=== PATIENT | female | born 1945 | race Caucasian/White ===

== ENCOUNTER 2018-07-27 10:00 | Day surgery (SDC) | payer MEDICARE ==
[2018-07-27 10:29] VITALS: BMI 26.4
[2018-07-27] MEDS ORDERED: Midazolam 2 MG/2 ML VIAL ONE (11:19)
[2018-07-27] MEDS ORDERED: Propofol 10 mg/ml Inj (20 ML) ONE (11:20)
[2018-07-27] MEDS ORDERED: Lactated Ringer's 500 ML IV ONE (11:30)
[2018-07-27 12:09] VITALS: RESP 16
[2018-07-27 12:26] VITALS: BP 100/62; PULSE 88; TEMP 97; O2SAT 98
== END 2018-07-27 13:00 | disposition home or self-care (01) ==
LOC: H.ENDO 10:00
PROVIDERS: ATTEND Internal Medicine Gastroenterology
DX: Z86.010 Personal history of colon polyps (principal); D49.0 Neoplasm of unspecified behavior of digestive system; K64.8 Other hemorrhoids; K57.30 Diverticulosis of large intestine without perforation or abscess without bleeding; K29.50 Unspecified chronic gastritis without bleeding; K31.89 Other diseases of stomach and duodenum
CPT/HCPCS: 43239; 45380; 45381; 88305; J2001; J2250; J2704; J3010; J7120

== ENCOUNTER 2018-10-06 07:53 | Inpatient (IN) | payer MEDICARE, OTHER ==
[2018-09-30 10:15] VITALS: BMI 26.7
[2018-10-06] MEDS ORDERED: Lactated Ringer's 1,000 ML IV ONE ×4 (08:30→15:00)
[2018-10-06] MEDS ORDERED: metroNIDAZOLE 500mg/100ml NS 100 ML IVPB ONE (09:53)
[2018-10-06] MEDS ORDERED: Propofol 10 mg/ml Inj (20 ML) ONE (09:58)
[2018-10-06] MEDS ORDERED: Rocuronium 10 mg/ml (5 ml) ONE (09:58)
[2018-10-06] MEDS ORDERED: Midazolam 2 MG/2 ML VIAL ONE (09:58)
[2018-10-06] MEDS ORDERED: Lidocaine 4% (Laryng-O-Jet) Kit MM ONE (09:58)
[2018-10-06] MEDS ORDERED: Succinylcholine Chloride 20 mg/ml Syr (5 ml) IV ONE (09:58)
[2018-10-06] MEDS ORDERED: Phenylephrine 10 mg/ml Inj ONE (10:05)
[2018-10-06] MEDS ORDERED: metroNIDAZOLE 500mg/100ml NS IVPB ONE (10:15)
[2018-10-06] MEDS ORDERED: Ropivacaine 0.5% 30ML IV ONE (12:41)
[2018-10-06] MEDS ORDERED: Neostigmine 1:1000 (1 mg/ml) Inj ONE (12:52)
[2018-10-06] MEDS ORDERED: Lactated Ringer's 1,000 ML IV SCH (13:30)
--- NOTE | 2018-10-06 13:33 | PCM.SURG1 ---
<Mar Rehman - Last Filed: 10/06/18 13:30> Surgeon's Initial Post Op Note - Surgeon's Notes Surgeon: Dr. Haque Dance Critic: Dr. Mai, Dr. Rehman, Dr. Matthew Type of Anesthesia: General Endo, Block Regional Pre-Operative Diagnosis: colon cancer Operative Findings: dense intra-abdominal adhesions, palpable cecal colon mass with visible tattoo Post-Operative Diagnosis: colon cancer Operation Performed: laparoscopic lysis of adhesions and mobilization of right colon converted to open right hemicolectomy with ileocolic anastomosis Specimen/Specimens Removed: right colon Estimated Blood Loss: EBL {In ML}: 50 Blood Products Given: N/A Drains Used: No Drains Post-Op Condition: Good Date of Surgery/Procedure: 10/06/18 Time of Surgery/Procedure: 13:33 <James Haque - Last Filed: 10/06/18 13:35> Surgeon's Initial Post Op Note - Surgeon's Notes Operation Performed: partial omentectomy
--- NOTE | 2018-10-06 13:34 | PCM.ANESB5 ---
Transverse Abdominis Block - Transverse Abdominis Plane Date of Procedure: 10/06/18 Anesthesiologist: Shala Pre-Procedure Diagnosis: Colon Cancer Post-Procedure Diagnosis: Colon Cancer Procedure Performed: Transverse Abdominis Plane Nerve Block Left, Transverse Abdominis Plane Nerve Block Right - Procedure Transverse Abdominis Plane Nerve Block: The procedure was explained to the patient that it is for post-operative pain management and would be performed after surgery. Consent was obtained prior to surgery after a thorough discussion with the patient regarding the benefits and possible complications of transverse abdominis plane block. After the surgery had concluded and before the patient emerged from general anesthesia, time-out was held with the circulating nurse to re-confirm the appropriate block. With the patient in supine position, the ultrasound probe was placed transverse to the abdominal wall at the mid-axillary line above the iliac crest of the appro priate side. The skin, subcutaneous tissue, fat, external oblique muscle, internal oblique muscle, and the transverse abdominis muscle were identified. The general area of the block site was then prepped with Betadine three times. At this point, a # 21-gauge Stimuplex 4-inch needle was inserted posterior to and in plane with the ultrasound probe and directed anteriorly. Needle was advanced under direct ultrasound visualization until it reached the plane between the internal oblique and transverse abdominis muscles. After appropriate placement, 2mL of local anesthetic solution was injected. When the transverse abdominis plane was observed expanding in an ellipsoid way, the rest of the solution was slowly injected. A total of ___20___ mL of __0.25___ % ____ropivacaine was used for this block. The needle was then removed and sterile dressing was applied. Similarly, the same procedure was performed on the other side using the same medications. The patient had stable vital signs throughout and had no untoward complications after emergence from general anesthesia in the recovery room.
[2018-10-06] MEDS: HYDROmorphone 0.5 mg/0.5 ml ISec IVP PRN ×3 (13:55→14:25)
[2018-10-06] MEDS: metroNIDAZOLE 500mg/100ml NS 100 ML IVPB SCH ×2 (17:00→21:07)
[2018-10-06] MEDS: Lactated Ringer's 1,000 ML IV SCH (18:28)
[2018-10-06] MEDS: ceFAZolin 1 GM in Sodium Chloride 0.9% 100 ML IVPB SCH (18:32)
[2018-10-07] MEDS: ceFAZolin 1 GM in Sodium Chloride 0.9% 100 ML IVPB SCH (01:36)
[2018-10-07] MEDS: Lactated Ringer's 1,000 ML IV SCH ×2 (01:37→21:01)
[2018-10-07] MEDS: metroNIDAZOLE 500mg/100ml NS 100 ML IVPB SCH (04:04)
[2018-10-07 06:31] LABS: BASO # 0.1 K/uL (0.0-0.2); BASO % 0.5 % (0.0-2.0); EOS % 0.3 % (0.0-4.0); HEMOGLOBIN 11.2 g/dL (12.0-16.0); LYMPH # 1.5 K/uL (1.0-4.3); LYMPH % 13.6 % (20.0-40.0); MEAN CELL VOLUME 90.3 fl (81.0-99.0); MEAN CORPUSCULAR HEMOGLOBIN 29.6 pg (27.0-31.0); MEAN CORPUSCULAR HGB CONC 32.8 g/dL (33.0-37.0); MEAN PLATELET VOLUME 7.3 fl (7.2-11.7); MONO # 0.8 K/uL (0.0-0.8); MONO % 7.3 % (0.0-10.0); NEUT # 8.9 K/uL (1.8-7.0); NEUT % 78.3 % (50.0-75.0); NRBC % 0.1 % (0.0-0.0); RBC 3.77 Mil/uL (3.80-5.20); RED CELL DISTRIBUTION WIDTH 12.8 % (11.5-14.5); WHITE BLOOD COUNT 11.3 K/uL (4.8-10.8)
--- NOTE | 2018-10-07 06:40 | OP ---
PROCEDURE DATE: 10/06/2018 PREOPERATIVE DIAGNOSIS: Cecal cancer. POSTOPERATIVE DIAGNOSIS: Cecal cancer. PROCEDURES: Diagnostic laparoscopy, extensive lysis of adhesions, exploratory laparotomy, partial omentectomy, and right hemicolectomy. SURGEON: James Haque MD INSULATOR TECHNICIAN: Dr. Mai. SECOND INSULATOR TECHNICIAN: Brayan Rehman DO, THIRD INSULATOR TECHNICIAN: Anderson Matthew DO ANESTHESIOLOGIST: Devante Last MD TYPE OF ANESTHESIA: General endotracheal intubation. IV FLUID INTAKE: Crystalloid. ESTIMATED BLOOD LOSS: 50 mL. INTRAOPERATIVE FINDINGS: Palpable cecal mass, well-defined tattoo and extensive intraabdominal adhesions. SPECIMEN: Right colon and partial omentectomy. BRIEF HISTORY: Ms. Galvin is a very pleasant 73-year-old female who presented to the office after referral by Dr. Rosa from Gastroenterology once the patient got a colonoscopy and that revealed a nonobstructing, large fungating tumor at the cecum that was tattooed, and pathology was significant for adenocarcinoma. Subsequent to that, patient underwent CAT scan of the abdomen, pelvis, and chest that did not reveal any metastatic disease anywhere, so the patient was taken to the operating room for above-stated procedure. All the risks and benefits of the procedure were explained to the patient. With the patient having a full understating of all risks and benefits involved, informed consent was obtained, and the patient was taken to the operating room for above-stated procedure. DESCRIPTION OF PROCEDURE: The patient was brought into the operating room, placed supine on the operating room table. Bilateral Flowtron boots were applied to the patient's lower extremities. After successful induction of anesthesia and successful endotracheal intubation by the anesthesia team, Strauss catheter was inserted into the patient's urinary bladder, and subsequent to that, patient's abdomen was prepped with ChloraPrep stick and draped in a standard surgical fashion. Prior to the beginning of a procedure, patient received prophylactic Ancef and Flagyl antibiotics. Time-out was called in the room, and everyone in the room were in agreement. Using a #10 blade scalpel knife, approximately 5 cm incision was made in a longitudinal fashion, slightly above the umbilicus. Subsequent to that, dissection was carried down with electrical cautery until the fascial layer was visualized. Small tata was made in the fascia and two Stephanie clamps were placed on both the ends of the transected fascia. At this point in time, the fascial layer was opened up a little bit more, and subsequent to that, using two Shanti clamps, the peritoneal layer was clamped and was transected with Metzenbaum scissors. At this point in time, patient's abdominal cavity was entered. At this point in time, the fascial layer was opened up for the entire length of the incision. Subsequent to that, two 0 Vicryl sutures were placed as stay sutures to ends of the fascia. Once this was accomplished, medium size hand port was inserted into the wound. Subsequent to that, pneumoperitoneum was achieved. At this point in time, a 5 mm 0 degree scope was introduced into the patient's abdomen. Abdomen was inspected. Then attention was turned to the subxiphoid area. Two 5 mm incisions were made with 11-blade scalpel knife in a transverse fashion, one slightly towards the right upper quadrant, one slightly towards the left upper quadrant. Subsequent to that, two 5 mm trocars were introduced into the patient's abdomen. At this point in time, using the Harmonic scalpel, the intraabdominal adhesions from prior paramedian incision from appendectomy were taken down bluntly with finger dissection as well as with Harmonic scalpel. I spend at least 45 minutes to an hour lysing of adhesions. So once the adhesions were taken down, attention was turned to the white line of Toldt. Right colon was mobilized along the white line of Toldt, heading towards the terminal ileum and heading up towards the hepatic flexure. Hepatic flexure was mobilized, and at this point in time, the procedure was converted to open secondary to extensive intraabdominal adhesions in the pelvis, so approximately 5 more centimeters of the incision was made towards the bottom of the patient going around the umbilicus and dissection was carried down with electrical cautery until the fascia was completely opened up. At this point in time, some of the adhesions to the small bowel and the pelvis were taken down with electrical cautery as well as blunt dissection over the finger, and once this was accomplished, the right colon was brought up into the wound. At this point in time, using electrical cautery, a small tata was made in mesentery of the terminal ileum approximately 10 cm away from the ileocecal valve, and subsequent to that, Stephanie clamp was passed through the prior made defect in mesentery, and subsequent to that, blue load 75 mm LUZ staple was applied across the terminal ileum. At this point in time, attention was turned to the proximal transverse colon. A small tata was made in the mesentery of the proximal transverse colon, and subsequent to that, Stephanie clamp was placed through the defect and another 75 mm blue load LUZ stapler was fired across the proximal transverse colon. At this point in time, the mesentery of the right colon was taken with a Harmonic scalpel, and once the colon was completely freed up, it was passed off to the Griffin stand as a specimen. At this point in time, hemostasis was confirmed, and terminal ileum and proximal transverse colon were approximated in [id number] fashion with four interrupted 3-0 silk sutured on SH needle. Once this was accomplished, using electrical cautery, two enterotomies were made one in the terminal ileum, one in the transverse colon, and two Allis clamps were inserted into the lumen of the bowel. Subsequent to that, another 75 mm blue load LUZ stapler was fired across the two ends of the bowel, and subsequent to that, the defect of the bowel was closed with TA 60 blue load stapler. Once this was accomplished, the anastomotic line was inspected for hemostasis. Hemostasis was confirmed and the 3-0 chromic suture was ran across the staple line as a reinforcement suture. At this point in time, the bowel was reduced back into the abdominal cavity. Abdominal cavity was irrigated and dried, and the hemostasis was confirmed. At this point in time, two Kylie clamps were placed on both ends of the fascia. Prior to taking the colon, the omentum was removed closer to the right colon Harmonic scalpel and passed off to the Griffin stand. Once the anastomosis was completed and appeared to be satisfactory, bowel was reduced back into the abdominal cavity. Abdominal cavity was irrigated and dried. The liver was inspected, their appeared to be no metastatic disease in the liver on a gross inspection or any peritoneal surfaces that was visible during laparoscopy. At this point in time, two Kylie clamps were placed on both ends of the fascia and facial layer was closed with #1 loop PDS one from above, one from below and tide in the middle. At this point in time, the wound was irrigated and dried and prior placed 0 Vicryl sutures were tied as well. The skin was approximated with hiwot. Once this was accomplished, patient's abdomen was washed and dried in a clean dressing with 4 x 4s and Tegaderm were applied to the site of the incisions. The patient was successfully extubated by the anesthesia team, transferred to a stretcher, and taken to the recovery room in a stable condition. At the end of the procedure, all instrument counts, needles, and sponges were correct. James Haque MD MTDYojana
[2018-10-07 07:14] LABS: BLOOD UREA NITROGEN 7 mg/dl (7-17); CALCIUM 7.9 mg/dL (8.4-10.2); GFR NON-AFRICAN AMERICAN > 60
[2018-10-07] MEDS: Metoprolol Succinate 25 mg XL Tab PO SCH (08:36)
[2018-10-07] MEDS: Pantoprazole 40 mg EC Tab PO SCH (08:37)
--- NOTE | 2018-10-07 08:42 | CP.PCM.HP ---
History of Present Illness - History of Present Illness History of Present Illness: pt admitted s/p colon resection for colon cancer. pt had outside pcp and heme/onc. c/o abd pain at present. on BACK PADDER. dsg c/d/i bw noted. Present on Admission - Present on Admission Any Indicators Present on Admission: Yes History of Uncontrolled Diabetes: Yes Review of Systems - Gastrointestinal Gastrointestinal: As Per HPI, Abdominal Pain Past Patient History - Past Medical History & Family History Past Medical History?: Yes - Past Social History Smoking Status: Never Smoked - CARDIAC Hx Hypercholesterolemia: Yes Hx Hypertension: Yes - PULMONARY Hx Respiratory Disorders: No - NEUROLOGICAL Hx Neurological Disorder: No - HEENT Hx HEENT Problems: No - RENAL Hx Chronic Kidney Disease: No - ENDOCRINE/METABOLIC Hx Endocrine Disorders: No - HEMATOLOGICAL/ONCOLOGICAL Hx Blood Disorders: No Hx AIDS: No - INTEGUMENTARY Hx Dermatological Problems: No - MUSCULOSKELETAL/RHEUMATOLOGICAL Hx Musculoskeletal Disorders: Yes Hx Arthritis: Yes (knees) Hx Osteoporosis: Yes - GASTROINTESTINAL Hx Gastrointestinal Disorders: Yes Hx Gastritis: Yes Hx Gastroesophageal Reflux: Yes - GENITOURINARY/GYNECOLOGICAL Hx Genitourinary Disorders: No - PSYCHIATRIC Hx Psychophysiologic Disorder: No Hx Emotional Abuse: No Hx Physical Abuse: No Hx Substance Use: No - SURGICAL HISTORY Hx Surgeries: Yes Hx Appendectomy: Yes Hx Breast Biopsy: Yes (right) - ANESTHESIA Hx Anesthesia: Yes Hx Anesthesia Reactions: No Hx Malignant Hyperthermia: No Has any member of the family had a problem w/ anesthesia?: No Meds Allergies/Adverse Reactions: Allergies Allergy/AdvReac Type Severity Reaction Status Date / Time pollen extracts Allergy Mild ITCHING Verified 12/12/15 11:41 environmental Allergy CONGESTION Uncoded 09/30/18 10:16 Physical Exam - Constitutional Appears: Well, Non-toxic, No Acute Distress - Head Exam Head Exam: ATRAUMATIC, NORMAL INSPECTION, NORMOCEPHALIC - Eye Exam Eye Exam: EOMI, Normal appearance, PERRL Pupil Exam: NORMAL ACCOMODATION, PERRL - ENT Exam ENT Exam: Mucous Membranes Moist, Normal Exam - Neck Exam Neck exam: Positive for: Normal Inspection - Respiratory Exam Respiratory Exam: Clear to Auscultation Bilateral, NORMAL BREATHING PATTERN - Cardiovascular Exam Cardiovascular Exam: REGULAR RHYTHM, RRR, +S1, +S2 - GI/Abdominal Exam GI & Abdominal Exam: Normal Bowel Sounds, Soft, Tenderness Additional comments: dsg c/d/i - Extremities Exam Extremities exam: Positive for: full ROM, normal capillary refill, normal inspection, pedal pulses present - Back Exam Back exam: NORMAL INSPECTION - Neurological Exam Neurological exam: Alert, CN II-XII Intact, Normal Gait, Oriented x3, Reflexes Normal - Psychiatric Exam Psychiatric exam: Normal Affect, Normal Mood - Skin Skin Exam: Dry, Intact, Normal Color, Warm Results - Vital Signs Recent Vital Signs: Last Vital Signs Temp 98.2 F 10/07/18 08:00 Pulse 96 H 10/07/18 08:36 Resp 20 10/07/18 08:00 BP 100/62 10/07/18 08:36 Pulse Ox 96 10/07/18 08:00 - Labs Result Diagrams: 10/07/18 05:20 10/07/18 05:20 Labs: Laboratory Results - last 24 hr 10/06/18 10/06/18 10/07/18 10:25 10:35 05:20 WBC 11.3 H RBC 3.77 L Hgb 11.2 L Hct 34.1 MCV 90.3 MCH 29.6 MCHC 32.8 L RDW 12.8 Plt Count 290 MPV 7.3 Neut % (Auto) 78.3 H Lymph % (Auto) 13.6 L Whitman % (Auto) 7.3 Eos % (Auto) 0.3 Baso % (Auto) 0.5 Neut # (Auto) 8.9 H Lymph # (Auto) 1.5 Whitman # (Auto) 0.8 Eos # (Auto) 0.0 Baso # (Auto) 0.1 Sodium Potassium Chloride Carbon Dioxide Anion Gap BUN Creatinine Est GFR ( Amer) Est GFR (Non-Af Amer) Random Glucose Calcium Phosphorus Magnesium Blood Type B POSITIVE Blood Type Confirm B POSITIVE Antibody Screen Negative BBK History Checked No verified bt 10/07/18 05:20 WBC RBC Hgb Hct MCV MCH MCHC RDW Plt Count MPV Neut % (Auto) Lymph % (Auto) Whitman % (Auto) Eos % (Auto) Baso % (Auto) Neut # (Auto) Lymph # (Auto) Whitman # (Auto) Eos # (Auto) Baso # (Auto) Sodium 134 Potassium 3.5 L Chloride 95 L Carbon Dioxide 31 H Anion Gap 12 BUN 7 Creatinine 0.6 L Est GFR ( Amer) > 60 Est GFR (Non-Af Amer) > 60 Random Glucose 101 Calcium 7.9 L Phosphorus 3.5 Magnesium 1.6 Blood Type Blood Type Confirm Antibody Screen BBK History Checked Assessment & Plan (1) Colon cancer Assessment and Plan: outpt heme/onc f/u path surgery s/p resection Status: Acute (2) DVT prophylaxis Assessment and Plan: scd and ae hoscorrine caponenox Status: Acute (3) S/P colon resection Assessment and Plan: pain control, personal banker surgery f/u path Status: Acute Decision To Admit - Pt Status Changed To: Hospital Disposition Of: Inpatient - Admit Certification Admit to Inpatient:: After my assessment, the patient will require hospitalization for at least two midnights. This is because of the severity of symptoms shown, intensity of services needed, and/or the medical risk in this patient being treated as an outpatient. - . Bed Request Type: Med/Surg Admitting Physician: Alexis Ac
--- NOTE | 2018-10-07 09:17 | CP.PCM.PN ---
Subjective - Date & Time of Evaluation Date of Evaluation: 10/07/18 Time of Evaluation: 09:14 - Subjective Subjective: pt seen at bedside, no overnight events. Pt reports incisional pain controlled with SCRAP PICKER. Pt NPO, reports no nausea or vomiting, no flatus. Strauss: 1300 Objective - Vital Signs/Intake and Output Vital Signs (last 24 hours): Temp Pulse Resp BP Pulse Ox 98.2 F 96 H 20 100/62 96 10/07/18 08:00 10/07/18 08:36 10/07/18 08:00 10/07/18 08:36 10/07/18 08:00 - Medications Medications: Current Medications Atorvastatin Calcium (Lipitor) 40 mg PO HS [facility] Enoxaparin Sodium (Lovenox) 40 mg SC DAILY [facility]; Protocol Fluticasone Propionate (Flonase) 1 spr WILEY DAILY [facility] Last Admin: 10/06/18 18:29 Dose: Not Given Hydrochlorothiazide (Microzide) 12.5 mg PO DAILY [facility] Last Admin: 10/07/18 08:36 Dose: 12.5 mg Hydromorphone HCl (Dilaudid 0.2 Mg/Ml Disability Insurance Hearing Officer) 0 mg IV PRN PRN; Protocol PRN Reason: Pain, moderate (4-7) Last Admin: 10/06/18 15:10 Dose: 0 mg Acetaminophen (Ofirmev) 100 mls @ 400 mls/hr IVPB Q6H [facility]; Protocol Stop: 10/07/18 10:46 Last Admin: 10/07/18 04:54 Dose: 400 mls/hr Lactated Ringer's (Lactated Ringer's) 1,000 mls @ 100 mls/hr IV .Q10H [facility] Last Admin: 10/06/18 18:33 Dose: Not Given Lactated Ringer's (Lactated Ringer's) 1,000 mls @ 100 mls/hr IV .Q10H [facility] Last Admin: 10/07/18 01:37 Dose: 100 mls/hr Potassium Chloride (Potassium Cl 10meq/50ml Sterile Water) 50 mls @ 50 mls/hr IVPB Q1 [facility] Stop: 10/07/18 09:59 Loratadine (Claritin) 10 mg PO DAILY [facility] Last Admin: 10/07/18 08:37 Dose: 10 mg Metoprolol Succinate (Toprol Xl) 25 mg PO DAILY [facility] Last Admin: 10/07/18 08:36 Dose: 25 mg Montelukast Sodium (Singulair) 10 mg PO HS [facility] Last Admin: 10/06/18 21:09 Dose: 10 mg Ondansetron HCl (Zofran Inj) 4 mg IVP Q6 PRN PRN Reason: Nausea/Vomiting Pantoprazole Sodium (Protonix Ec Tab) 40 mg PO DAILY [facility] Last Admin: 10/07/18 08:37 Dose: 40 mg Simethicone (Mylicon Chew Tab) 80 mg PO Q8 PRN PRN Reason: Flatulence - Labs Labs: 10/07/18 05:20 10/07/18 05:20 - Constitutional Appears: Non-toxic, No Acute Distress - Head Exam Head Exam: ATRAUMATIC, NORMAL INSPECTION - Respiratory Exam Respiratory Exam: NORMAL BREATHING PATTERN - Cardiovascular Exam Cardiovascular Exam: REGULAR RHYTHM - GI/Abdominal Exam GI & Abdominal Exam: Distended, Soft, Tenderness Additional comments: appropriate incisional tenderness, midline incision with dressing in place c/d/i - Extremities Exam Extremities Exam: absent: Pedal Edema, Tenderness Assessment and Plan - Assessment and Plan (Free Text) Plan: s/p laparoscopic lysis of adhesions, open right hemicolectomy cont inspector crystal for pain control incentive spirometry clear liquid diet protonix zofran prn yaw gonzales to start dvtprophylaxis ambulation labs in am
[2018-10-07] MEDS: Potassium CL 10 MEQ/50 ML 50 ML IVPB SCH ×2 (10:07→11:32)
[2018-10-07] MEDS: Enoxaparin 40 mg Syringe SC SCH (10:07)
[2018-10-07] MEDS ORDERED: Potassium Chloride 20 mEq/15 ml LIQ UD PO ONE (13:12)
[2018-10-07] MEDS: oxyCODONE 5 mg Immediate Release Tab PO PRN (17:29)
[2018-10-08] MEDS: Lactated Ringer's 1,000 ML IV SCH ×3 (03:43→13:05)
[2018-10-08] MEDS: oxyCODONE 5 mg Immediate Release Tab PO PRN ×2 (05:42→23:14)
[2018-10-08 07:10] LABS: HEMOGLOBIN 11.1 g/dL (12.0-16.0); MEAN CELL VOLUME 90.2 fl (81.0-99.0); MEAN CORPUSCULAR HEMOGLOBIN 29.5 pg (27.0-31.0); MEAN CORPUSCULAR HGB CONC 32.7 g/dL (33.0-37.0); RBC 3.78 Mil/uL (3.80-5.20); WHITE BLOOD COUNT 13.4 K/uL (4.8-10.8)
[2018-10-08 07:21] LABS: BLOOD UREA NITROGEN 7 mg/dl (7-17); CALCIUM 8.9 mg/dL (8.4-10.2); GFR NON-AFRICAN AMERICAN > 60
[2018-10-08] MEDS: Enoxaparin 40 mg Syringe SC SCH (08:36)
[2018-10-08] MEDS: Simethicone 80 mg Chewtab PO PRN (08:37)
[2018-10-08] MEDS: Pantoprazole 40 mg EC Tab PO SCH (08:37)
[2018-10-08] MEDS: Metoprolol Succinate 25 mg XL Tab PO SCH (08:39)
--- NOTE | 2018-10-08 08:39 | CP.PCM.PN ---
<Anderson Matthew - Last Filed: 10/08/18 08:48> Subjective - Date & Time of Evaluation Date of Evaluation: 10/08/18 Time of Evaluation: 06:45 - Subjective Subjective: Patient seen and examined. No acute events over night. Denies nausea/vomiting. Denies passing flatus. Dressings removed, erythema noted along surgical site incision. No active drainage or collection noted. Objective - Vital Signs/Intake and Output Vital Signs (last 24 hours): Temp Pulse Resp BP Pulse Ox 98.6 F 113 H 20 110/69 92 L 10/08/18 08:09 10/08/18 08:09 10/08/18 08:09 10/08/18 08:09 10/08/18 08:09 Intake and Output: 10/08/18 10/08/18 06:59 18:59 Intake Total 800 Output Total 400 Balance 400 - Medications Medications: Current Medications Atorvastatin Calcium (Lipitor) 40 mg PO HS [facility] Last Admin: 10/07/18 21:01 Dose: 40 mg Bacitracin (Bacitracin Oint) 1 applic TOP BID [facility] Enoxaparin Sodium (Lovenox) 40 mg SC DAILY [facility]; Protocol Last Admin: 10/07/18 10:07 Dose: 40 mg Fluticasone Propionate (Flonase) 1 spr WILEY DAILY [facility] Last Admin: 10/07/18 10:06 Dose: 1 spr Hydrochlorothiazide (Microzide) 12.5 mg PO DAILY [facility] Last Admin: 10/07/18 08:36 Dose: 12.5 mg Hydromorphone HCl (Dilaudid) 1 mg IVP Q4 PRN PRN Reason: Pain, severe (8-10) Last Admin: 10/07/18 23:08 Dose: 1 mg Loratadine (Claritin) 10 mg PO DAILY [facility] Last Admin: 10/07/18 08:37 Dose: 10 mg Metoprolol Succinate (Toprol Xl) 25 mg PO DAILY [facility] Last Admin: 10/07/18 08:36 Dose: 25 mg Montelukast Sodium (Singulair) 10 mg PO HS [facility] Last Admin: 10/07/18 21:00 Dose: 10 mg Ondansetron HCl (Zofran Inj) 4 mg IVP Q6 PRN PRN Reason: Nausea/Vomiting Last Admin: 10/07/18 10:04 Dose: 4 mg Oxycodone HCl (Oxycodone Immediate Release Tab) 5 mg PO Q6 PRN PRN Reason: Pain, moderate (4-7) Last Admin: 10/08/18 05:42 Dose: 5 mg Pantoprazole Sodium (Protonix Ec Tab) 40 mg PO DAILY [facility] Last Admin: 10/07/18 08:37 Dose: 40 mg Simethicone (Mylicon Chew Tab) 80 mg PO Q8 PRN PRN Reason: Flatulence - Labs Labs: 10/08/18 06:00 10/08/18 06:00 - Constitutional Appears: No Acute Distress - Head Exam Head Exam: NORMOCEPHALIC - Eye Exam Eye Exam: EOMI, Normal appearance - ENT Exam ENT Exam: Mucous Membranes Moist - Respiratory Exam Respiratory Exam: NORMAL BREATHING PATTERN - Cardiovascular Exam Cardiovascular Exam: +S1, +S2 - GI/Abdominal Exam GI & Abdominal Exam: Soft, Tenderness Additional comments: incision site tenderness - Neurological Exam Neurological Exam: Alert, Awake, Oriented x3 - Psychiatric Exam Psychiatric exam: Normal Mood - Skin Skin Exam: Dry, Intact, Warm Assessment and Plan - Assessment and Plan (Free Text) Assessment: 73F s/p laparoscopic lysis of adhesions, open right hemicolectomy Plan: incentive spirometry clear liquid diet protonix zofran prn DVT ppx ambulation labs in am <Derick Ni - Last Filed: 10/08/18 09:49> Objective - Vital Signs/Intake and Output Vital Signs (last 24 hours): Temp Pulse Resp BP Pulse Ox 98.6 F 113 H 20 110/69 92 L 10/08/18 08:09 10/08/18 08:39 10/08/18 08:09 10/08/18 08:39 10/08/18 08:09 Intake and Output: 10/08/18 10/08/18 06:59 18:59 Intake Total 800 Output Total 400 Balance 400 - Medications Medications: Current Medications Atorvastatin Calcium (Lipitor) 40 mg PO HS [facility] Last Admin: 10/07/18 21:01 Dose: 40 mg Bacitracin (Bacitracin Oint) 1 applic TOP BID [facility] Enoxaparin Sodium (Lovenox) 40 mg SC DAILY [facility]; Protocol Last Admin: 10/08/18 08:36 Dose: 40 mg Fluticasone Propionate (Flonase) 1 spr WILEY DAILY [facility] Last Admin: 10/08/18 08:36 Dose: 1 spr Hydrochlorothiazide (Microzide) 12.5 mg PO DAILY [facility] Last Admin: 10/08/18 08:38 Dose: 12.5 mg Hydromorphone HCl (Dilaudid) 1 mg IVP Q4 PRN PRN Reason: Pain, severe (8-10) Last Admin: 10/07/18 23:08 Dose: 1 mg Loratadine (Claritin) 10 mg PO DAILY [facility] Last Admin: 10/08/18 08:37 Dose: 10 mg Metoprolol Succinate (Toprol Xl) 25 mg PO DAILY [facility] Last Admin: 10/08/18 08:39 Dose: 25 mg Montelukast Sodium (Singulair) 10 mg PO HS [facility] Last Admin: 10/07/18 21:00 Dose: 10 mg Ondansetron HCl (Zofran Inj) 4 mg IVP Q6 PRN PRN Reason: Nausea/Vomiting Last Admin: 10/07/18 10:04 Dose: 4 mg Oxycodone HCl (Oxycodone Immediate Release Tab) 5 mg PO Q6 PRN PRN Reason: Pain, moderate (4-7) Last Admin: 10/08/18 05:42 Dose: 5 mg Pantoprazole Sodium (Protonix Ec Tab) 40 mg PO DAILY [facility] Last Admin: 10/08/18 08:37 Dose: 40 mg Simethicone (Mylicon Chew Tab) 80 mg PO Q8 PRN PRN Reason: Flatulence Last Admin: 10/08/18 08:37 Dose: 80 mg - Labs Labs: 10/08/18 06:00 10/08/18 06:00 Assessment and Plan - Assessment and Plan (Free Text) Plan: pt seen at bedside, no overnight events. Pt tolerating clear liquid diet, no nausea or vomiting. Pt remains afebrile. Reports incisional pain. No BM or Flatus. Gen: awake, alert, NAD resp: CTA b/l, no acute respiratory distress abd: soft, distended, incisional tenderness, midline incision with hiwot in [address] with surrounding erythema, no drainage ext: no edema, no calf tenderness a/p prn pain control incentive spirometry cont clears IVF protonix dvt prophylaxis abx monitor wound site f/u path ambulation
--- NOTE | 2018-10-08 09:49 | CP.PCM.PN ---
Subjective - Date & Time of Evaluation Date of Evaluation: 10/08/18 Time of Evaluation: 09:48 - Subjective Subjective: pt doing well. no f/c, n/v/d. juliette liquids. surgical notes reviewed. off game room attendant. bw noted. Objective - Vital Signs/Intake and Output Vital Signs (last 24 hours): Temp Pulse Resp BP Pulse Ox 98.6 F 113 H 20 110/69 92 L 10/08/18 08:09 10/08/18 08:39 10/08/18 08:09 10/08/18 08:39 10/08/18 08:09 Intake and Output: 10/08/18 10/08/18 06:59 18:59 Intake Total 800 Output Total 400 Balance 400 - Medications Medications: Current Medications Atorvastatin Calcium (Lipitor) 40 mg PO HS [facility] Last Admin: 10/07/18 21:01 Dose: 40 mg Bacitracin (Bacitracin Oint) 1 applic TOP BID [facility] Enoxaparin Sodium (Lovenox) 40 mg SC DAILY [facility]; Protocol Last Admin: 10/08/18 08:36 Dose: 40 mg Fluticasone Propionate (Flonase) 1 spr WILEY DAILY [facility] Last Admin: 10/08/18 08:36 Dose: 1 spr Hydrochlorothiazide (Microzide) 12.5 mg PO DAILY [facility] Last Admin: 10/08/18 08:38 Dose: 12.5 mg Hydromorphone HCl (Dilaudid) 1 mg IVP Q4 PRN PRN Reason: Pain, severe (8-10) Last Admin: 10/07/18 23:08 Dose: 1 mg Loratadine (Claritin) 10 mg PO DAILY [facility] Last Admin: 10/08/18 08:37 Dose: 10 mg Metoprolol Succinate (Toprol Xl) 25 mg PO DAILY [facility] Last Admin: 10/08/18 08:39 Dose: 25 mg Montelukast Sodium (Singulair) 10 mg PO HS [facility] Last Admin: 10/07/18 21:00 Dose: 10 mg Ondansetron HCl (Zofran Inj) 4 mg IVP Q6 PRN PRN Reason: Nausea/Vomiting Last Admin: 10/07/18 10:04 Dose: 4 mg Oxycodone HCl (Oxycodone Immediate Release Tab) 5 mg PO Q6 PRN PRN Reason: Pain, moderate (4-7) Last Admin: 10/08/18 05:42 Dose: 5 mg Pantoprazole Sodium (Protonix Ec Tab) 40 mg PO DAILY [facility] Last Admin: 10/08/18 08:37 Dose: 40 mg Simethicone (Mylicon Chew Tab) 80 mg PO Q8 PRN PRN Reason: Flatulence Last Admin: 10/08/18 08:37 Dose: 80 mg - Labs Labs: 10/08/18 06:00 10/08/18 06:00 - Constitutional Appears: Well, Non-toxic, No Acute Distress - Head Exam Head Exam: ATRAUMATIC, NORMAL INSPECTION, NORMOCEPHALIC - Eye Exam Eye Exam: EOMI, Normal appearance, PERRL Pupil Exam: NORMAL ACCOMODATION, PERRL - ENT Exam ENT Exam: Mucous Membranes Moist, Normal Exam - Neck Exam Neck Exam: Full ROM, Normal Inspection. absent: Lymphadenopathy - Respiratory Exam Respiratory Exam: Clear to Ausculation Bilateral, NORMAL BREATHING PATTERN - Cardiovascular Exam Cardiovascular Exam: REGULAR RHYTHM, RRR, +S1, +S2. absent: Murmur - GI/Abdominal Exam GI & Abdominal Exam: Soft, Tenderness, Normal Bowel Sounds - Extremities Exam Extremities Exam: Full ROM, Normal Capillary Refill, Normal Inspection. absent: Joint Swelling, Pedal Edema - Back Exam Back Exam: NORMAL INSPECTION - Neurological Exam Neurological Exam: Alert, Awake, CN II-XII Intact, Normal Gait, Oriented x3 - Psychiatric Exam Psychiatric exam: Normal Affect, Normal Mood - Skin Skin Exam: Dry, Intact, Normal Color, Warm Assessment and Plan (1) Colon cancer Status: Acute (2) DVT prophylaxis Status: Acute (3) S/P colon resection Status: Acute - Assessment and Plan (Free Text) Plan: (1) Colon cancer Assessment and Plan: outpt heme/onc f/u path surgery s/p resection Status: Acute (2) DVT prophylaxis Assessment and Plan: scd and ae hose, lovenox Status: Acute (3) S/P colon resection Assessment and Plan: pain control, game room attendant now dc surgery f/u path Status: Acute
[2018-10-08] MEDS: Piperacillin/Tazobact 3.375 GM in Sodium Chloride 0.9% 100 ML IVPB SCH ×3 (10:48→21:37)
[2018-10-08] MEDS: Bacitracin OINT 15GM TOP SCH ×2 (10:49→18:50)
[2018-10-08] MEDS ORDERED: Potassium Chloride 20 MEQ in Dextrose 5%-0.45% NS 500 ML IV SCH (11:34)
[2018-10-08] MEDS ORDERED: Potassium Ch 20mEq in D5-1/2NS 1,000 ML IV SCH (11:38)
[2018-10-09] MEDS: Piperacillin/Tazobact 3.375 GM in Sodium Chloride 0.9% 100 ML IVPB SCH ×4 (03:56→21:04)
[2018-10-09] MEDS: oxyCODONE 5 mg Immediate Release Tab PO PRN ×3 (06:47→19:25)
[2018-10-09] MEDS: Potassium Ch 20mEq in D5-1/2NS 1,000 ML IV SCH ×2 (06:48→13:11)
[2018-10-09 07:41] LABS: BASO # 0.1 K/uL (0.0-0.2); BASO % 0.5 % (0.0-2.0); EOS # 0.1 K/uL (0.0-0.7); EOS % 0.8 % (0.0-4.0); LYMPH # 1.6 K/uL (1.0-4.3); LYMPH % 13.3 % (20.0-40.0); MEAN CELL VOLUME 89.3 fl (81.0-99.0); MEAN CORPUSCULAR HEMOGLOBIN 29.2 pg (27.0-31.0); MEAN CORPUSCULAR HGB CONC 32.7 g/dL (33.0-37.0); MEAN PLATELET VOLUME 7.3 fl (7.2-11.7); MONO # 0.9 K/uL (0.0-0.8); MONO % 7.6 % (0.0-10.0); NEUT # 9.2 K/uL (1.8-7.0); NEUT % 77.8 % (50.0-75.0); RBC 3.42 Mil/uL (3.80-5.20); RED CELL DISTRIBUTION WIDTH 12.9 % (11.5-14.5); WHITE BLOOD COUNT 11.8 K/uL (4.8-10.8)
[2018-10-09 07:55] LABS: BLOOD UREA NITROGEN 7 mg/dl (7-17); CALCIUM 8.2 mg/dL (8.4-10.2); GFR NON-AFRICAN AMERICAN > 60
[2018-10-09] MEDS ORDERED: Potassium Chloride 20 mEq ER Tab PO ONE (08:03)
[2018-10-09] MEDS ORDERED: Iohexol 240 (50 ml) PO ONE ×2 (08:39→08:52)
[2018-10-09] MEDS: Bacitracin OINT 15GM TOP SCH ×2 (09:14→16:05)
[2018-10-09] MEDS: Enoxaparin 40 mg Syringe SC SCH (09:15)
[2018-10-09] MEDS: Metoprolol Succinate 25 mg XL Tab PO SCH (09:16)
[2018-10-09] MEDS: Pantoprazole 40 mg EC Tab PO SCH (09:17)
[2018-10-09] MEDS: Lactated Ringer's 1,000 ML IV SCH (09:20)
--- NOTE | 2018-10-09 09:27 | CP.PCM.PN ---
<EllieReji holley Sachin - Last Filed: 10/09/18 09:24> Subjective - Date & Time of Evaluation Date of Evaluation: 10/09/18 Time of Evaluation: 09:25 - Subjective Subjective: General Surgery: Dr Haque Pt S&E. Has had tachycardia overnight, 100-120s. Reports no flatus or BM yet. Complaining of epigastric pain. Denies N/V, F/C. Has been OOB and ambulating. Using incentive spirometer. Objective - Vital Signs/Intake and Output Vital Signs (last 24 hours): Temp Pulse Resp BP Pulse Ox 97.4 F L 115 H 20 115/71 91 L 10/09/18 08:08 10/09/18 09:16 10/09/18 08:08 10/09/18 09:16 10/09/18 08:08 - Medications Medications: Current Medications Atorvastatin Calcium (Lipitor) 40 mg PO HS [facility] Last Admin: 10/08/18 21:37 Dose: 40 mg Bacitracin (Bacitracin Oint) 1 applic TOP BID [facility] Last Admin: 10/09/18 09:14 Dose: 1 applic Enoxaparin Sodium (Lovenox) 40 mg SC DAILY [facility]; Protocol Last Admin: 10/09/18 09:15 Dose: 40 mg Fluticasone Propionate (Flonase) 1 spr WILEY DAILY [facility] Last Admin: 10/09/18 09:14 Dose: 1 spr Hydrochlorothiazide (Microzide) 12.5 mg PO DAILY [facility] Last Admin: 10/08/18 08:38 Dose: 12.5 mg Piperacillin Sod/Tazobactam (Sod 3.375 gm/ Sodium Chloride) 100 mls @ 100 mls/hr IVPB Q6 [facility]; Protocol Last Admin: 10/09/18 03:56 Dose: 100 mls/hr Lactated Ringer's (Lactated Ringer's) 1,000 mls @ 999 mls/hr IV .Q1H1M [facility] Last Admin: 10/09/18 09:20 Dose: 999 mls/hr Potassium Chloride/Dextrose/Sod Cl (Potassium Chl 20 Meq In D5-1/2ns) 1,000 mls @ 75 mls/hr IV .[id number] [facility] Stop: 10/09/18 23:18 Last Admin: 10/09/18 06:48 Dose: 75 mls/hr Loratadine (Claritin) 10 mg PO DAILY [facility] Last Admin: 10/08/18 08:37 Dose: 10 mg Metoprolol Succinate (Toprol Xl) 25 mg PO DAILY [facility] Last Admin: 10/09/18 09:16 Dose: 25 mg Montelukast Sodium (Singulair) 10 mg PO HS [facility] Last Admin: 10/08/18 21:37 Dose: 10 mg Ondansetron HCl (Zofran Inj) 4 mg IVP Q6 PRN PRN Reason: Nausea/Vomiting Last Admin: 10/07/18 10:04 Dose: 4 mg Oxycodone HCl (Oxycodone Immediate Release Tab) 5 mg PO Q6 PRN PRN Reason: Pain, moderate (4-7) Last Admin: 10/09/18 06:47 Dose: 5 mg Pantoprazole Sodium (Protonix Ec Tab) 40 mg PO DAILY [facility] Last Admin: 10/09/18 09:17 Dose: 40 mg Simethicone (Mylicon Chew Tab) 80 mg PO Q8 PRN PRN Reason: Flatulence Last Admin: 10/08/18 08:37 Dose: 80 mg - Labs Labs: 10/09/18 06:10 10/09/18 06:10 - Constitutional Appears: Non-toxic, No Acute Distress - Eye Exam Eye Exam: Normal appearance - ENT Exam ENT Exam: Normal Exam - Respiratory Exam Respiratory Exam: Clear to Ausculation Bilateral. absent: Accessory Muscle Use - Cardiovascular Exam Cardiovascular Exam: Tachycardia (100-120), REGULAR RHYTHM - GI/Abdominal Exam GI & Abdominal Exam: Distended, Soft, Tenderness (minimal). absent: Firm, Guarding, Rigid - Rectal Exam Rectal Exam: Deferred - Neurological Exam Neurological Exam: Alert, Awake, Oriented x3 - Psychiatric Exam Psychiatric exam: Normal Affect, Normal Mood - Skin Skin Exam: Normal Color, Warm Assessment and Plan - Assessment and Plan (Free Text) Assessment: 73F POD#3 s/p lap --> open R hemicolectomy. Plan: Given tachycardia will get CT A/P and Chest NPO until CT results Continue IV fluids electrolytes replaced Continue beta-gabby and home meds D/C dilaudid, minimize narcotics d/w Dr Garland Argueta, PGY4 <James Haque - Last Filed: 10/09/18 11:28> Subjective - Subjective Subjective: Patient was seen and examined at the bedside. Reports some arnoldo-incisional pain. Objective - Vital Signs/Intake and Output Vital Signs (last 24 hours): Temp Pulse Resp BP Pulse Ox 97.4 F L 115 H 20 115/71 91 L 10/09/18 08:08 10/09/18 09:16 10/09/18 08:08 10/09/18 09:16 10/09/18 08:08 - Medications Medications: Current Medications Atorvastatin Calcium (Lipitor) 40 mg PO [facility] Last Admin: 10/08/18 21:37 Dose: 40 mg Bacitracin (Bacitracin Oint) 1 applic TOP BID [facility] Last Admin: 10/09/18 09:14 Dose: 1 applic Enoxaparin Sodium (Lovenox) 40 mg SC DAILY [facility]; Protocol Last Admin: 10/09/18 09:15 Dose: 40 mg Fluticasone Propionate (Flonase) 1 spr WILEY DAILY [facility] Last Admin: 10/09/18 09:14 Dose: 1 spr Hydrochlorothiazide (Microzide) 12.5 mg PO DAILY [facility] Last Admin: 10/09/18 09:26 Dose: 12.5 mg Piperacillin Sod/Tazobactam (Sod 3.375 gm/ Sodium Chloride) 100 mls @ 100 mls/hr IVPB Q6 [facility]; Protocol Last Admin: 10/09/18 10:27 Dose: 100 mls/hr Lactated Ringer's (Lactated Ringer's) 1,000 mls @ 999 mls/hr IV .Q1H1M [facility] Last Admin: 10/09/18 09:20 Dose: 999 mls/hr Potassium Chloride/Dextrose/Sod Cl (Potassium Chl 20 Meq In D5-1/2ns) 1,000 mls @ 75 mls/hr IV .[id number] [facility] Stop: 10/09/18 23:18 Last Admin: 10/09/18 06:48 Dose: 75 mls/hr Loratadine (Claritin) 10 mg PO DAILY [facility] Last Admin: 10/09/18 09:25 Dose: 10 mg Metoprolol Succinate (Toprol Xl) 25 mg PO DAILY [facility] Last Admin: 10/09/18 09:16 Dose: 25 mg Montelukast Sodium (Singulair) 10 mg PO [facility] Last Admin: 10/08/18 21:37 Dose: 10 mg Ondansetron HCl (Zofran Inj) 4 mg IVP Q6 PRN PRN Reason: Nausea/Vomiting Last Admin: 10/07/18 10:04 Dose: 4 mg Oxycodone HCl (Oxycodone Immediate Release Tab) 5 mg PO Q6 PRN PRN Reason: Pain, moderate (4-7) Last Admin: 10/09/18 06:47 Dose: 5 mg Pantoprazole Sodium (Protonix Ec Tab) 40 mg PO DAILY [facility] Last Admin: 10/09/18 09:17 Dose: 40 mg Simethicone (Mylicon Chew Tab) 80 mg PO Q8 PRN PRN Reason: Flatulence Last Admin: 10/08/18 08:37 Dose: 80 mg - Labs Labs: 10/09/18 06:10 10/09/18 06:10 - GI/Abdominal Exam GI & Abdominal Exam: Normal Bowel Sounds Additional comments: soft, arnoldo-incisional tenderness, mildly distended, BS+, no rebound, no guarding, incision with erythema, no drainage, hiwot in place
--- NOTE | 2018-10-09 11:50 | CP.PCM.PN ---
Subjective - Date & Time of Evaluation Date of Evaluation: 10/09/18 Time of Evaluation: 11:49 - Subjective Subjective: pt doing well. no f/c, n/v/d. bw noted.vs note. case d/c w/ dr lance-surgical clinical reviewer. ct chest/abd/pelvis ordddered. for tachy,/decr spo2 Objective - Vital Signs/Intake and Output Vital Signs (last 24 hours): Temp Pulse Resp BP Pulse Ox 97.4 F L 115 H 20 115/71 91 L 10/09/18 08:08 10/09/18 09:16 10/09/18 08:08 10/09/18 09:16 10/09/18 08:08 - Medications Medications: Current Medications Atorvastatin Calcium (Lipitor) 40 mg PO HS [facility] Last Admin: 10/08/18 21:37 Dose: 40 mg Bacitracin (Bacitracin Oint) 1 applic TOP BID [facility] Last Admin: 10/09/18 09:14 Dose: 1 applic Enoxaparin Sodium (Lovenox) 40 mg SC DAILY [facility]; Protocol Last Admin: 10/09/18 09:15 Dose: 40 mg Fluticasone Propionate (Flonase) 1 spr WILEY DAILY [facility] Last Admin: 10/09/18 09:14 Dose: 1 spr Hydrochlorothiazide (Microzide) 12.5 mg PO DAILY [facility] Last Admin: 10/09/18 09:26 Dose: 12.5 mg Piperacillin Sod/Tazobactam (Sod 3.375 gm/ Sodium Chloride) 100 mls @ 100 mls/hr IVPB Q6 [facility]; Protocol Last Admin: 10/09/18 10:27 Dose: 100 mls/hr Lactated Ringer's (Lactated Ringer's) 1,000 mls @ 999 mls/hr IV .Q1H1M [facility] Last Admin: 10/09/18 09:20 Dose: 999 mls/hr Potassium Chloride/Dextrose/Sod Cl (Potassium Chl 20 Meq In D5-1/2ns) 1,000 mls @ 75 mls/hr IV .[id number] [facility] Stop: 10/09/18 23:18 Last Admin: 10/09/18 06:48 Dose: 75 mls/hr Loratadine (Claritin) 10 mg PO DAILY [facility] Last Admin: 10/09/18 09:25 Dose: 10 mg Metoprolol Succinate (Toprol Xl) 25 mg PO DAILY [facility] Last Admin: 10/09/18 09:16 Dose: 25 mg Montelukast Sodium (Singulair) 10 mg PO HS [facility] Last Admin: 10/08/18 21:37 Dose: 10 mg Ondansetron HCl (Zofran Inj) 4 mg IVP Q6 PRN PRN Reason: Nausea/Vomiting Last Admin: 10/07/18 10:04 Dose: 4 mg Oxycodone HCl (Oxycodone Immediate Release Tab) 5 mg PO Q6 PRN PRN Reason: Pain, moderate (4-7) Last Admin: 10/09/18 06:47 Dose: 5 mg Pantoprazole Sodium (Protonix Ec Tab) 40 mg PO DAILY [facility] Last Admin: 10/09/18 09:17 Dose: 40 mg Simethicone (Mylicon Chew Tab) 80 mg PO Q8 PRN PRN Reason: Flatulence Last Admin: 10/08/18 08:37 Dose: 80 mg - Labs Labs: 10/09/18 06:10 10/09/18 06:10 - Constitutional Appears: Well, Non-toxic, No Acute Distress - Head Exam Head Exam: ATRAUMATIC, NORMAL INSPECTION, NORMOCEPHALIC - Eye Exam Eye Exam: EOMI, Normal appearance, PERRL Pupil Exam: NORMAL ACCOMODATION, PERRL - ENT Exam ENT Exam: Mucous Membranes Moist, Normal Exam - Neck Exam Neck Exam: Full ROM, Normal Inspection. absent: Lymphadenopathy - Respiratory Exam Respiratory Exam: Clear to Ausculation Bilateral, NORMAL BREATHING PATTERN - Cardiovascular Exam Cardiovascular Exam: Tachycardia, REGULAR RHYTHM, +S1, +S2. absent: Murmur - GI/Abdominal Exam GI & Abdominal Exam: Soft, Normal Bowel Sounds. absent: Tenderness - Extremities Exam Extremities Exam: Full ROM, Normal Capillary Refill, Normal Inspection. absent: Joint Swelling, Pedal Edema - Back Exam Back Exam: NORMAL INSPECTION - Neurological Exam Neurological Exam: Alert, Awake, CN II-XII Intact, Normal Gait, Oriented x3 - Psychiatric Exam Psychiatric exam: Normal Affect, Normal Mood - Skin Skin Exam: Dry, Intact, Normal Color, Warm Assessment and Plan (1) Colon cancer Assessment & Plan: path pending Status: Acute (2) DVT prophylaxis Assessment & Plan: scd and ae hose lovenox Status: Acute (3) S/P colon resection Assessment & Plan: pain control surgery f/u monitor bw Status: Acute (4) Tachycardia Assessment & Plan: ? hydration monitor bw ct noted nc o2 prn Status: Acute
[2018-10-09] MEDS ORDERED: Potassium & Sodium Phosphate PO ONE (12:03)
[2018-10-09] MEDS ORDERED: Sodium Chloride 0.9% 100 ML ONE (12:36)
[2018-10-09] MEDS ORDERED: Iodixanol 320 MG/ML 100 ML BOTTLE IV ONE (12:36)
--- NOTE | 2018-10-09 13:38 | CT ---
Date of service: 10/09/2018 PROCEDURE: CT Chest with contrast (Pulmonary Angiogram) HISTORY: rule out PE COMPARISON: None available. TECHNIQUE: Axial computed tomography images were obtained of the chest in the pulmonary arterial phase of enhancement. Coronal and sagittal reformatted images were created and reviewed. Intravenous contrast dose: 100 mL Visipaque 320 Radiation dose: Total exam DLP = 581.97 mGy-cm. This CT exam was performed using one or more of the following dose reduction techniques: Automated exposure control, adjustment of the mA and/or kV according to patient size, and/or use of iterative reconstruction technique. FINDINGS: PULMONARY ARTERIES: Unremarkable. No pulmonary embolism. AORTA: No acute findings. No thoracic aortic aneurysm. No aortic atherosclerotic calcification or mural plaque present. LUNGS: Bilateral lower lobe subsegmental atelectasis. No infiltrate. PLEURAL SPACES: Very small bilateral pleural effusion. No pneumothorax. HEART: Unremarkable. No cardiomegaly. No significant pericardial effusion. LYMPH NODES: No lymphadenopathy. BONES, CHEST WALL: Unremarkable. No fracture or destructive lesion OTHER FINDINGS: Enlarged heterogeneous right lobe of thyroid.. Correlate with thyroid ultrasound examination. Likely multinodular goiter. IMPRESSION: No evidence of pulmonary embolism. Minimal bilateral pleural effusion and bilateral lower lobe subsegmental atelectasis. Probable multinodular goiter. Correlate with thyroid ultrasound examination. No additional abnormality.
--- NOTE | 2018-10-09 13:44 | CT ---
Date of service: 10/09/2018 PROCEDURE: CT Abdomen and Pelvis with contrast HISTORY: R/O abscess or leak COMPARISON: Not available TECHNIQUE: Contrast dose: 100 mL Visipaque 320 Radiation dose: Total exam DLP = 581.97 mGy-cm. This CT exam was performed using one or more of the following dose reduction techniques: Automated exposure control, adjustment of the mA and/or kV according to patient size, and/or use of iterative reconstruction technique. FINDINGS: LOWER THORAX: See report of CT angio chest of same date LIVER: Unremarkable. No gross lesion or ductal dilatation. GALLBLADDER AND BILE DUCTS: Unremarkable. PANCREAS: Unremarkable. No gross lesion or ductal dilatation. SPLEEN: Unremarkable. ADRENALS: Unremarkable. No mass. KIDNEYS AND URETERS: Unremarkable. No hydronephrosis. No solid mass. VASCULATURE: Unremarkable. No aortic aneurysm. There is atherosclerotic calcification of the abdominal aorta. BOWEL: The patient is status post right hemicolectomy with ileotransverse anastomosis. No evidence of anastomotic leak. No evidence of bowel obstruction. Mild dilatation of multiple jejunal loops in the left abdomen likely reflects an adynamic ileus. Correlate clinically. APPENDIX: Right hemicolectomy PERITONEUM: Trace fluid in the right pericolic gutter. Trace pneumoperitoneum. LYMPH NODES: Unremarkable. No enlarged lymph nodes. BLADDER: Unremarkable. REPRODUCTIVE: Unremarkable uterus BONES: No acute fracture. OTHER FINDINGS: None. IMPRESSION: Status post right hemicolectomy and ileotransverse anastomosis. No evidence of anastomotic leak. No evidence of mechanical bowel obstruction. Minimal fluid in right pericolic gutter. Trace pneumoperitoneum. Consistent with immediate postoperative status.
[2018-10-09] MEDS: Simethicone 80 mg Chewtab PO PRN (16:04)
[2018-10-09 16:39] LABS: T3 0.888 nmol/L (1.49-2.60)
--- NOTE | 2018-10-09 20:54 | CP.PCM.CON ---
History of Present Illness - History of Present Illness History of Present Illness: THE PATIENT IS A 73 YEAR OLD FEMALE WHO UNDERWENT COLON SURGERY ON 10/06/18 FOR ADENOCARCINOMA. SHE ALSO HAS A HISTORY OF A GOITER, HYPERTENSION AND HYPERLIPIDEMIA. SHE STATES THAT SHE HAS THE GOITER FOR A FEW YEARS AND SAW AN PHARMACEUTICAL ASSISTANT AND WAS TOLD SHE WAS OK AND DIDN'T NEED TO TAKE ANY MEDICINES FOR IT. SHE DENIES ANY KNOWN CARDIAC PROBLEMS, CHEST PAIN OR PALPITATIONS. I WAS CALLED TO SEE HER FOR SINUS TACHYCARDIA. Past Patient History - Past Medical History & Family History Past Medical History?: Yes - Past Social History Smoking Status: Never Smoked - CARDIAC Hx Hypercholesterolemia: Yes Hx Hypertension: Yes - PULMONARY Hx Respiratory Disorders: No - NEUROLOGICAL Hx Neurological Disorder: No - HEENT Hx HEENT Problems: No - RENAL Hx Chronic Kidney Disease: No - ENDOCRINE/METABOLIC Hx Endocrine Disorders: No - HEMATOLOGICAL/ONCOLOGICAL Hx Blood Disorders: No Hx AIDS: No - INTEGUMENTARY Hx Dermatological Problems: No - MUSCULOSKELETAL/RHEUMATOLOGICAL Hx Musculoskeletal Disorders: Yes Hx Arthritis: Yes (knees) Hx Osteoporosis: Yes - GASTROINTESTINAL Hx Gastrointestinal Disorders: Yes Hx Gastritis: Yes Hx Gastroesophageal Reflux: Yes - GENITOURINARY/GYNECOLOGICAL Hx Genitourinary Disorders: No - PSYCHIATRIC Hx Psychophysiologic Disorder: No Hx Emotional Abuse: No Hx Physical Abuse: No Hx Substance Use: No - SURGICAL HISTORY Hx Surgeries: Yes Hx Appendectomy: Yes Hx Breast Biopsy: Yes (right) - ANESTHESIA Hx Anesthesia: Yes Hx Anesthesia Reactions: No Hx Malignant Hyperthermia: No Has any member of the family had a problem w/ anesthesia?: No Meds Allergies/Adverse Reactions: Allergies Allergy/AdvReac Type Severity Reaction Status Date / Time pollen extracts Allergy Mild ITCHING Verified 12/12/15 11:41 environmental Allergy CONGESTION Uncoded 09/30/18 10:16 - Medications Medications: Current Medications Atorvastatin Calcium (Lipitor) 40 mg PO HS [facility] Last Admin: 10/08/18 21:37 Dose: 40 mg Bacitracin (Bacitracin Oint) 1 applic TOP BID [facility] Last Admin: 10/09/18 16:05 Dose: 1 applic Enoxaparin Sodium (Lovenox) 40 mg SC DAILY [facility]; Protocol Last Admin: 10/09/18 09:15 Dose: 40 mg Fluticasone Propionate (Flonase) 1 spr WILEY DAILY [facility] Last Admin: 10/09/18 09:14 Dose: 1 spr Hydrochlorothiazide (Microzide) 12.5 mg PO DAILY [facility] Last Admin: 10/09/18 09:26 Dose: 12.5 mg Piperacillin Sod/Tazobactam (Sod 3.375 gm/ Sodium Chloride) 100 mls @ 100 mls/hr IVPB Q6 [facility]; Protocol Last Admin: 10/09/18 16:08 Dose: 100 mls/hr Potassium Chloride/Dextrose/Sod Cl (Potassium Chl 20 Meq In D5-1/2ns) 1,000 mls @ 75 mls/hr IV .[id number] [facility] Stop: 10/09/18 23:18 Last Admin: 10/09/18 13:11 Dose: 75 mls/hr Loratadine (Claritin) 10 mg PO DAILY [facility] Last Admin: 10/09/18 09:25 Dose: 10 mg Metoprolol Succinate (Toprol Xl) 25 mg PO DAILY [facility] Last Admin: 10/09/18 09:16 Dose: 25 mg Montelukast Sodium (Singulair) 10 mg PO HS [facility] Last Admin: 10/08/18 21:37 Dose: 10 mg Ondansetron HCl (Zofran Inj) 4 mg IVP Q6 PRN PRN Reason: Nausea/Vomiting Last Admin: 10/07/18 10:04 Dose: 4 mg Oxycodone HCl (Oxycodone Immediate Release Tab) 5 mg PO Q6 PRN PRN Reason: Pain, moderate (4-7) Last Admin: 10/09/18 19:25 Dose: 5 mg Pantoprazole Sodium (Protonix Ec Tab) 40 mg PO DAILY [facility] Last Admin: 10/09/18 09:17 Dose: 40 mg Simethicone (Mylicon Chew Tab) 80 mg PO Q8 PRN PRN Reason: Flatulence Last Admin: 10/09/18 16:04 Dose: 80 mg Physical Exam - Respiratory Exam Respiratory Exam: Clear to Auscultation Bilateral - Cardiovascular Exam Cardiovascular Exam: Tachycardia, +S1, +S2 - Extremities Exam Additional comments: NO LE EDEMA - Additional Findings Additional findings: HEART RATES SINCE ADMISSION HAVE BEEN NORMAL UP TO [address], R 110, OTHERWISE NORMAL EKG H/H 10/30 K+ 3.[address] OF CHEST NEGATIVE FOR PE Results - Vital Signs Recent Vital Signs: Last Vital Signs Temp 98.3 F 10/09/18 16:16 Pulse 116 H 10/09/18 16:16 Resp 20 10/09/18 16:16 BP 124/82 10/09/18 16:16 Pulse Ox 95 10/09/18 16:16 - Labs Result Diagrams: 10/09/18 06:10 10/09/18 06:10 Labs: Laboratory Results - last 24 hr 10/09/18 10/09/18 10/09/18 06:10 06:10 15:07 WBC 11.8 H RBC 3.42 L Hgb 10.0 L Hct 30.6 L MCV 89.3 MCH 29.2 MCHC 32.7 L RDW 12.9 Plt Count 304 MPV 7.3 Neut % (Auto) 77.8 H Lymph % (Auto) 13.3 L [place] % (Auto) 7.6 Eos % (Auto) 0.8 Baso % (Auto) 0.5 Neut # (Auto) 9.2 H Lymph # (Auto) 1.6 [place] # (Auto) 0.9 H Eos # (Auto) 0.1 Baso # (Auto) 0.1 Sodium 133 Potassium 3.5 L Chloride 94 L Carbon Dioxide 31 H Anion Gap 12 BUN 7 Creatinine 0.6 L Est GFR ( Amer) > 60 Est GFR (Non-Af Amer) > 60 Random Glucose 119 H Calcium 8.2 L Phosphorus 2.0 L Magnesium 2.0 Free T4 Total T3 0.888 L TSH 3rd Generation 0.49 10/09/18 15:07 WBC RBC Hgb Hct MCV MCH MCHC RDW Plt Count MPV Neut % (Auto) Lymph % (Auto) [place] % (Auto) Eos % (Auto) Baso % (Auto) Neut # (Auto) Lymph # (Auto) [place] # (Auto) Eos # (Auto) Baso # (Auto) Sodium Potassium Chloride Carbon Dioxide Anion Gap BUN Creatinine Est GFR ( Amer) Est GFR (Non-Af Amer) Random Glucose Calcium Phosphorus Magnesium Free T4 1.53 Total T3 TSH 3rd Generation Assessment & Plan - Assessment and Plan (Free Text) Assessment: MILD SINUS TACHYCARDIA POSSIBLY OF THYROID ETIOLOGY S/P SURGERY FOR COLON CA HYPERTENSION HYPERLIPIDEMIA Plan: CONTINUE METOPROLOL, ATORVASTATIN, LOVENOX, IV FLUIDS AND ANTIBIOTICS EKG AND ECHOCARDIOGRAM IN AM CONSIDER REPEAT THYROID EVALUATION IN THE NEAR FUTURE NOTE: I WILL BE AWAY UNTIL 10/19/[address] RUIZ WILL BE COVERING NE
[2018-10-10] MEDS: oxyCODONE 5 mg Immediate Release Tab PO PRN ×2 (02:05→18:14)
[2018-10-10] MEDS: Piperacillin/Tazobact 3.375 GM in Sodium Chloride 0.9% 100 ML IVPB SCH ×4 (03:30→21:30)
[2018-10-10] MEDS: Simethicone 80 mg Chewtab PO PRN (04:40)
[2018-10-10 06:20] LABS: HEMOGLOBIN 11.5 g/dL (12.0-16.0); MEAN CELL VOLUME 89.4 fl (81.0-99.0); MEAN CORPUSCULAR HGB CONC 32.4 g/dL (33.0-37.0); RBC 3.98 Mil/uL (3.80-5.20); RED CELL DISTRIBUTION WIDTH 12.9 % (11.5-14.5); WHITE BLOOD COUNT 10.6 K/uL (4.8-10.8)
[2018-10-10 06:42] LABS: BLOOD UREA NITROGEN 10 mg/dl (7-17); CALCIUM 8.3 mg/dL (8.4-10.2); GFR NON-AFRICAN AMERICAN > 60
--- NOTE | 2018-10-10 08:29 | CP.PCM.PN ---
Subjective - Date & Time of Evaluation Date of Evaluation: 10/10/18 Time of Evaluation: 08:27 - Subjective Subjective: pt doignw ell. no f/c, n/v/d. no sob. hr/spo2 noted. all conslts appriciated. ct negative. Objective - Vital Signs/Intake and Output Vital Signs (last 24 hours): Temp Pulse Resp BP Pulse Ox 97.5 F L 110 H 20 135/75 94 L 10/10/18 08:05 10/10/18 08:05 10/10/18 08:05 10/10/18 08:05 10/10/18 08:05 - Medications Medications: Current Medications Atorvastatin Calcium (Lipitor) 40 mg PO HS [facility] Last Admin: 10/09/18 21:04 Dose: 40 mg Bacitracin (Bacitracin Oint) 1 applic TOP BID [facility] Last Admin: 10/09/18 16:05 Dose: 1 applic Enoxaparin Sodium (Lovenox) 40 mg SC DAILY [facility]; Protocol Last Admin: 10/09/18 09:15 Dose: 40 mg Fluticasone Propionate (Flonase) 1 spr WILEY DAILY [facility] Last Admin: 10/09/18 09:14 Dose: 1 spr Hydrochlorothiazide (Microzide) 12.5 mg PO DAILY [facility] Last Admin: 10/09/18 09:26 Dose: 12.5 mg Piperacillin Sod/Tazobactam (Sod 3.375 gm/ Sodium Chloride) 100 mls @ 100 mls/hr IVPB Q6 [facility]; Protocol Last Admin: 10/10/18 03:30 Dose: 100 mls/hr Loratadine (Claritin) 10 mg PO DAILY [facility] Last Admin: 10/09/18 09:25 Dose: 10 mg Metoprolol Succinate (Toprol Xl) 25 mg PO DAILY [facility] Last Admin: 10/09/18 09:16 Dose: 25 mg Montelukast Sodium (Singulair) 10 mg PO HS [facility] Last Admin: 10/09/18 21:03 Dose: 10 mg Ondansetron HCl (Zofran Inj) 4 mg IVP Q6 PRN PRN Reason: Nausea/Vomiting Last Admin: 10/07/18 10:04 Dose: 4 mg Oxycodone HCl (Oxycodone Immediate Release Tab) 5 mg PO Q6 PRN PRN Reason: Pain, moderate (4-7) Last Admin: 10/10/18 02:05 Dose: 5 mg Pantoprazole Sodium (Protonix Ec Tab) 40 mg PO DAILY [facility] Last Admin: 10/09/18 09:17 Dose: 40 mg Simethicone (Mylicon Chew Tab) 80 mg PO Q8 PRN PRN Reason: Flatulence Last Admin: 10/10/18 04:40 Dose: 80 mg - Labs Labs: 10/10/18 04:29 10/10/18 04:29 - Constitutional Appears: Well, Non-toxic, No Acute Distress - Head Exam Head Exam: ATRAUMATIC, NORMAL INSPECTION, NORMOCEPHALIC - Eye Exam Eye Exam: EOMI, Normal appearance, PERRL Pupil Exam: NORMAL ACCOMODATION, PERRL - ENT Exam ENT Exam: Mucous Membranes Moist, Normal Exam - Neck Exam Neck Exam: Full ROM, Normal Inspection. absent: Lymphadenopathy - Respiratory Exam Respiratory Exam: Clear to Ausculation Bilateral, NORMAL BREATHING PATTERN - Cardiovascular Exam Cardiovascular Exam: REGULAR RHYTHM, RRR, +S1, +S2. absent: Murmur - GI/Abdominal Exam GI & Abdominal Exam: Soft, Tenderness, Normal Bowel Sounds Additional comments: tender at surgical site - Extremities Exam Extremities Exam: Full ROM, Normal Capillary Refill, Normal Inspection. absent: Joint Swelling, Pedal Edema - Back Exam Back Exam: NORMAL INSPECTION - Neurological Exam Neurological Exam: Alert, Awake, CN II-XII Intact, Normal Gait, Oriented x3 - Psychiatric Exam Psychiatric exam: Normal Affect, Normal Mood - Skin Skin Exam: Dry, Intact, Normal Color, Warm Assessment and Plan (1) Colon cancer Assessment & Plan: pending path outpt heme/onc Status: Acute (2) DVT prophylaxis Assessment & Plan: scd nad ae hose lovenox ambulation Status: Acute (3) S/P colon resection Assessment & Plan: surgical f/u cont pain control juliette liquid diet adv as per srgery Status: Acute (4) Tachycardia Assessment & Plan: still in ST. cardio eval appriciated. ekg and echo pending TFT ordered Status: Acute
--- NOTE | 2018-10-10 09:18 | CP.PCM.PN ---
<Abraham Mike - Last Filed: 10/10/18 09:16> Subjective - Date & Time of Evaluation Date of Evaluation: 10/10/18 Time of Evaluation: 06:00 - Subjective Subjective: General Surgery Progress Note for Dr. Ni This 73F was seen and examined this AM at bedside no acute events reported overnight. She reports that she is feeling better. She denies any nausea or vomiting. She reports BM overnight. She denies fevers chills chest pain nausea vomiting. She reports incisional and right sided abdominal pain which is improving. Objective - Vital Signs/Intake and Output Vital Signs (last 24 hours): Temp Pulse Resp BP Pulse Ox 97.5 F L 110 H 20 135/75 94 L 10/10/18 08:05 10/10/18 08:05 10/10/18 08:05 10/10/18 08:05 10/10/18 08:05 - Medications Medications: Current Medications Atorvastatin Calcium (Lipitor) 40 mg PO HS [facility] Last Admin: 10/09/18 21:04 Dose: 40 mg Bacitracin (Bacitracin Oint) 1 applic TOP BID [facility] Last Admin: 10/09/18 16:05 Dose: 1 applic Enoxaparin Sodium (Lovenox) 40 mg SC DAILY [facility]; Protocol Last Admin: 10/09/18 09:15 Dose: 40 mg Fluticasone Propionate (Flonase) 1 spr WILEY DAILY [facility] Last Admin: 10/09/18 09:14 Dose: 1 spr Hydrochlorothiazide (Microzide) 12.5 mg PO DAILY [facility] Last Admin: 10/09/18 09:26 Dose: 12.5 mg Piperacillin Sod/Tazobactam (Sod 3.375 gm/ Sodium Chloride) 100 mls @ 100 mls/hr IVPB Q6 [facility]; Protocol Last Admin: 10/10/18 03:30 Dose: 100 mls/hr Loratadine (Claritin) 10 mg PO DAILY [facility] Last Admin: 10/09/18 09:25 Dose: 10 mg Metoprolol Succinate (Toprol Xl) 25 mg PO DAILY [facility] Last Admin: 10/09/18 09:16 Dose: 25 mg Montelukast Sodium (Singulair) 10 mg PO HS [facility] Last Admin: 10/09/18 21:03 Dose: 10 mg Ondansetron HCl (Zofran Inj) 4 mg IVP Q6 PRN PRN Reason: Nausea/Vomiting Last Admin: 10/07/18 10:04 Dose: 4 mg Oxycodone HCl (Oxycodone Immediate Release Tab) 5 mg PO Q6 PRN PRN Reason: Pain, moderate (4-7) Last Admin: 10/10/18 02:05 Dose: 5 mg Pantoprazole Sodium (Protonix Ec Tab) 40 mg PO DAILY [facility] Last Admin: 10/09/18 09:17 Dose: 40 mg Simethicone (Mylicon Chew Tab) 80 mg PO Q8 PRN PRN Reason: Flatulence Last Admin: 10/10/18 04:40 Dose: 80 mg - Labs Labs: 10/10/18 04:29 10/10/18 04:29 - Constitutional Appears: Non-toxic, No Acute Distress - Eye Exam Eye Exam: Normal appearance - ENT Exam ENT Exam: Normal Exam - Respiratory Exam Respiratory Exam: Clear to Ausculation Bilateral. absent: Accessory Muscle Use - Cardiovascular Exam Cardiovascular Exam: Tachycardia (100 +/-10), REGULAR RHYTHM - GI/Abdominal Exam GI & Abdominal Exam: Soft, Tenderness (minimal). absent: Firm, Guarding, Rigid Abdominal inscion with hiwot in place and erythema to the right of the incision which blanches and is not fluctuant. - Rectal Exam Rectal Exam: Deferred - Neurological Exam Neurological Exam: Alert, Awake, Oriented x3 - Psychiatric Exam Psychiatric exam: Normal Affect, Normal Mood - Skin Skin Exam: Normal Color, Warm Assessment and Plan - Assessment and Plan (Free Text) Assessment: 73F POD#4 s/p lap --> open R hemicolectomy. Plan: Cardiology consulted for tachycardia orded echo will follow results Advance from clears to fulls Continue IV fluids electrolytes replaced Continue beta-gabby and home meds Warm compresses Discussed with Dr. Last Mike PGY3 <Derick Ni - Last Filed: 10/10/18 23:55> Objective - Vital Signs/Intake and Output Vital Signs (last 24 hours): Temp Pulse Resp BP Pulse Ox 98.7 F 104 H 18 126/77 92 L 10/10/18 16:14 10/10/18 16:14 10/10/18 16:14 10/10/18 16:14 10/10/18 16:14 Intake and Output: 10/10/18 10/11/18 18:59 06:59 Intake Total 1700 Balance 1700 - Medications Medications: Current Medications Atorvastatin Calcium (Lipitor) 40 mg PO HS [facility] Last Admin: 10/10/18 21:29 Dose: 40 mg Bacitracin (Bacitracin Oint) 1 applic TOP BID [facility] Last Admin: 10/10/18 16:55 Dose: 1 applic Enoxaparin Sodium (Lovenox) 40 mg SC DAILY [facility]; Protocol Last Admin: 10/10/18 10:00 Dose: 40 mg Fluticasone Propionate (Flonase) 1 spr WILEY DAILY [facility] Last Admin: 10/10/18 10:00 Dose: 1 spr Hydrochlorothiazide (Microzide) 12.5 mg PO DAILY [facility] Last Admin: 10/10/18 09:59 Dose: 12.5 mg Piperacillin Sod/Tazobactam (Sod 3.375 gm/ Sodium Chloride) 100 mls @ 100 mls/hr IVPB Q6 [facility]; Protocol Last Admin: 10/10/18 21:30 Dose: 100 mls/hr Potassium Chloride/Dextrose/Sod Cl (Potassium Chl 20 Meq In D5-1/2ns) 1,000 mls @ 75 mls/hr IV .[id number] [facility] Stop: 10/11/18 11:53 Last Admin: 10/10/18 13:41 Dose: 75 mls/hr Loratadine (Claritin) 10 mg PO DAILY [facility] Last Admin: 10/10/18 10:00 Dose: 10 mg Methimazole (Tapazole) 5 mg PO TID [facility] Metoprolol Succinate (Toprol Xl) 25 mg PO DAILY [facility] Last Admin: 10/10/18 09:59 Dose: 25 mg Montelukast Sodium (Singulair) 10 mg PO HS [facility] Last Admin: 10/10/18 21:29 Dose: 10 mg Ondansetron HCl (Zofran Inj) 4 mg IVP Q6 PRN PRN Reason: Nausea/Vomiting Last Admin: 10/07/18 10:04 Dose: 4 mg Oxycodone HCl (Oxycodone Immediate Release Tab) 5 mg PO Q6 PRN PRN Reason: Pain, moderate (4-7) Last Admin: 10/10/18 18:14 Dose: 5 mg Pantoprazole Sodium (Protonix Ec Tab) 40 mg PO DAILY [facility] Last Admin: 10/10/18 09:59 Dose: 40 mg Simethicone (Mylicon Chew Tab) 80 mg PO Q8 PRN PRN Reason: Flatulence Last Admin: 10/10/18 04:40 Dose: 80 mg - Labs Labs: 10/10/18 04:29 10/10/18 04:29 Assessment and Plan - Assessment and Plan (Free Text) Assessment: seen at bedside, no overnight events. Pt without any acute complaints. Pt is tolerating full liquid diet without any nausea or vomiting. +BM. Pt remains tachycardic. gen: awake, alert, NAD abd: soft, distended, appropriate incisional tenderness, midline incision with hiwot in place, +arnoldo incisional erythema, no fluctuance or drainage, incision intact a/p laparoscopic lysis of adhesions, open right hemicolectomy with primary anastamosis -cardio consult appreciated -cont prn pain control, will transition to po pain meds in AM -incentive spirometry -cont fulls -cont abx repeat labs in am ambulation
[2018-10-10] MEDS: Metoprolol Succinate 25 mg XL Tab PO SCH (09:59)
[2018-10-10] MEDS: Pantoprazole 40 mg EC Tab PO SCH (09:59)
[2018-10-10] MEDS: Bacitracin OINT 15GM TOP SCH ×2 (10:00→16:55)
[2018-10-10] MEDS: Enoxaparin 40 mg Syringe SC SCH (10:00)
[2018-10-10 10:12] LABS: T3 0.882 nmol/L (1.49-2.60)
--- NOTE | 2018-10-10 11:07 | CARD ---
APPROVED REPORT Date of service: 10/10/2018 EXAM: Two-dimensional and M-mode echocardiogram with Doppler and color Doppler. Other Information Quality : AverageRhythm : Tachycardia Technically limited study due to Recent abdominal surgery INDICATION Abnormal EKG/Arrhythmia 2D DIMENSIONS IVSd0.96 (0.7-1.1cm)LVDd3.89 (3.9-5.9cm) LVOT Diameter1.92 (1.8-2.4cm)PWd0.92 (0.7-1.1cm) IVSs0.70 (0.8-1.2cm)LVDs3.23 (2.5-4.0cm) FS (%) 17.0 %PWs0.87 (0.8-1.2cm) M-Mode DIMENSIONS Left Atrium (MM)3.47 (2.5-4.0cm)IVSd0.62 (0.7-1.1cm) Aortic Root2.68 (2.2-3.7cm)LVDd5.12 (4.0-5.6cm) Aortic Cusp Exc.1.44 (1.5-2.0cm)PWd0.82 (0.7-1.1cm) IVSs0.85 cmFS (%) 23 % LVDs3.94 (2.0-3.8cm)PWs0.97 cm Aortic Valve AoV Peak Kfxulhii723.7cm/sAoV VTI19.2cmAO Peak GR.6mmHg LVOT Peak Soturvpg08.9cm/sLVOT VTI15.02cmAO Mean GR.3mmHg ANNE (VMAX)1.99uv2ZDW (VTI)1.42cm2 Mitral Valve E/A ratio0.0 TDI E/Lateral E'0.0E/Medial E'0.0 LEFT VENTRICLE The left ventricle is normal size. There is normal left ventricular wall thickness. The left ventricular systolic function is normal. The estimated ejection fraction is 50-55% No regional wall motion abnormalities noted.. Transmitral Doppler flow pattern is Grade I-abnormal relaxation pattern. No left ventricle thrombus noted on this study. There is no ventricular septal defect visualized. There is no left ventricular aneurysm. There is no mass noted in the left ventricle. RIGHT VENTRICLE The right ventricle is normal size. There is normal right ventricular wall thickness. The right ventricular systolic function is normal. ATRIA The left atrium size is normal. The right atrium size is normal. The interatrial septum is intact with no evidence for an atrial septal defect. AORTIC VALVE The aortic valve is normal in structure. Mild aortic regurgitation is present. There is no aortic valvular stenosis. There is no aortic valvular vegetation. MITRAL VALVE The mitral valve is normal in structure. There is no evidence of mitral valve prolapse. There is no mitral valve stenosis. There is mild mitral valve regurgitation noted. TRICUSPID VALVE The tricuspid valve is normal in structure. There is no tricuspid valve regurgitation noted. There is no tricuspid valve prolapse or vegetation. There is no tricuspid valve stenosis. PULMONIC VALVE The pulmonary valve is normal in structure. There is no pulmonic valvular regurgitation. There is no pulmonic valvular stenosis. GREAT VESSELS The aortic root is normal in size. The ascending aorta is normal in size. The pulmonary artery is normal. The IVC is not visualized. PERICARDIAL EFFUSION There is no pericardial effusion. There is no pleural effusion. <Conclusion> Technically difficult study The estimated ejection fraction is 50-55% Transmitral Doppler flow pattern is Grade I-abnormal relaxation pattern. The left atrium size is normal. Mild aortic regurgitation is present. There is mild mitral valve regurgitation noted. There is no tricuspid valve regurgitation noted. The IVC is not visualized.
[2018-10-10] MEDS: Potassium Ch 20mEq in D5-1/2NS 1,000 ML IV SCH (13:41)
[2018-10-11] MEDS: Potassium Ch 20mEq in D5-1/2NS 1,000 ML IV SCH ×3 (02:47→23:06)
[2018-10-11] MEDS: oxyCODONE 5 mg Immediate Release Tab PO PRN ×2 (02:47→21:14)
[2018-10-11] MEDS: Piperacillin/Tazobact 3.375 GM in Sodium Chloride 0.9% 100 ML IVPB SCH ×4 (04:52→21:10)
[2018-10-11] MEDS: Simethicone 80 mg Chewtab PO PRN (06:12)
[2018-10-11 06:23] LABS: HEMOGLOBIN 11.2 g/dL (12.0-16.0); MEAN CELL VOLUME 88.8 fl (81.0-99.0); MEAN CORPUSCULAR HEMOGLOBIN 29.2 pg (27.0-31.0); MEAN CORPUSCULAR HGB CONC 32.9 g/dL (33.0-37.0); RBC 3.83 Mil/uL (3.80-5.20)
[2018-10-11] MEDS ORDERED: Potassium Chloride 20 mEq ER Tab PO ONE (06:39)
[2018-10-11 06:41] LABS: BLOOD UREA NITROGEN 9 mg/dl (7-17); GFR NON-AFRICAN AMERICAN > 60
--- NOTE | 2018-10-11 06:48 | CON ---
DATE: 10/10/2018 ENDOCRINOLOGY CONSULT LOCATION: Room 651. HISTORY OF PRESENT ILLNESS: This is a 73-year-old female with known history of a nodular goiter, currently on no medications at this time, presenting here with generalized body weakness and supervening sinus tachycardia and is now being referred for evaluation of abnormal thyroid function studies. PAST MEDICAL HISTORY: As mentioned above, history of colonic adenocarcinoma with recent colon surgery undertaken; history of multinodular goiter, currently off medications at this time; history of hypertension and dyslipidemia. FAMILY HISTORY: Positive for diabetes, hypertension. SOCIAL HISTORY: The patient has a very supportive family. No known substance use. REVIEW OF SYSTEMS: As mentioned above. Admits to generalized body weakness with episodic bouts of dizziness and lightheadedness, worse on the day of admission. Also admits to insomnia and disrupted sleep patterns. No chest pains or palpitations or PND. His oral intake has been variable with nausea, dyspepsia and diffuse abdominal pain. PHYSICAL EXAMINATION: GENERAL: This is an average-built female, in no apparent distress. VITAL SIGNS: Blood pressure of 140/80, pulse of 100 beats per minute and regular, temperature 98, respirations 20, height is 5 feet, weight is 137 pounds. HEENT: Head normocephalic. Eyes anicteric with pink conjunctivae. Funduscopy not possible at this time. Ears, nose and throat otherwise normal. NECK: Supple. Thyroid gland is normal in size. No carotid bruits or any cervical adenopathy. CARDIOPULMONARY: Some adynamic precordium. S1, S2, is rapid and regular. LUNGS: Clear to auscultation. ABDOMEN: Flat, soft with positive bowel sounds. EXTREMITIES: No peripheral edema. Pulses are +2 bilaterally. LABORATORY DATA: Her chemistries showed a BUN of 7, sodium 134, potassium 3.5, chloride 95, CO2 of 31, glucose 101 and creatinine 0.6. Her thyroid studies showed a T4 of 10.3 with a free T4 of 1.53, T3 of 0.88 and a TSH of 0.19. ASSESSMENT: This is a 73-year-old female with persistent sinus tachycardia and concomitant suppressed TSH, most likely related to subclinical hyperthyroidism, quite common in the elderly and is actually called the apathetic hyperthyroidism in the elderly related to Graves disease. PLAN OF MANAGEMENT: We will concur with the present medical management and because of the persistent tachycardia will empirically start her on a low dose of Tapazole 5 mg t.i.d. after meals as ordered. We will obtain serial chemistries and supplement accordingly needed. We will follow with you. We will repeat thyroid studies after 3-4 weeks to see her metabolic response thereof. Marci Robertson MD
--- NOTE | 2018-10-11 07:35 | CP.PCM.PN ---
<Reji Argueta Sachin - Last Filed: 10/11/18 07:32> Subjective - Date & Time of Evaluation Date of Evaluation: 10/11/18 Time of Evaluation: 07:32 - Subjective Subjective: General Surgery: Dr Ni Pt S&E/ HUGN. Tachycardia resolving. Having BMs. Tolerating CLD. OOB and ambulating. Not much appetite Objective - Vital Signs/Intake and Output Vital Signs (last 24 hours): Temp Pulse Resp BP Pulse Ox 98.5 F 90 20 123/71 97 10/11/18 00:17 10/11/18 00:17 10/11/18 00:17 10/11/18 00:17 10/11/18 00:17 Intake and Output: 10/11/18 10/11/18 06:59 18:59 Intake Total 1700 Balance 1700 - Medications Medications: Current Medications Atorvastatin Calcium (Lipitor) 40 mg PO HS [facility] Last Admin: 10/10/18 21:29 Dose: 40 mg Bacitracin (Bacitracin Oint) 1 applic TOP BID [facility] Last Admin: 10/10/18 16:55 Dose: 1 applic Enoxaparin Sodium (Lovenox) 40 mg SC DAILY [facility]; Protocol Last Admin: 10/10/18 10:00 Dose: 40 mg Fluticasone Propionate (Flonase) 1 spr WILEY DAILY [facility] Last Admin: 10/10/18 10:00 Dose: 1 spr Hydrochlorothiazide (Microzide) 12.5 mg PO DAILY [facility] Last Admin: 10/10/18 09:59 Dose: 12.5 mg Piperacillin Sod/Tazobactam (Sod 3.375 gm/ Sodium Chloride) 100 mls @ 100 mls/hr IVPB Q6 [facility]; Protocol Last Admin: 10/11/18 04:52 Dose: 100 mls/hr Loratadine (Claritin) 10 mg PO DAILY [facility] Last Admin: 10/10/18 10:00 Dose: 10 mg Methimazole (Tapazole) 5 mg PO TID [facility] Metoprolol Succinate (Toprol Xl) 25 mg PO DAILY [facility] Last Admin: 10/10/18 09:59 Dose: 25 mg Montelukast Sodium (Singulair) 10 mg PO HS [facility] Last Admin: 10/10/18 21:29 Dose: 10 mg Ondansetron HCl (Zofran Inj) 4 mg IVP Q6 PRN PRN Reason: Nausea/Vomiting Last Admin: 10/07/18 10:04 Dose: 4 mg Oxycodone HCl (Oxycodone Immediate Release Tab) 5 mg PO Q6 PRN PRN Reason: Pain, moderate (4-7) Last Admin: 10/11/18 02:47 Dose: 5 mg Pantoprazole Sodium (Protonix Ec Tab) 40 mg PO DAILY [facility] Last Admin: 10/10/18 09:59 Dose: 40 mg Simethicone (Mylicon Chew Tab) 80 mg PO Q8 PRN PRN Reason: Flatulence Last Admin: 10/11/18 06:12 Dose: 80 mg - Labs Labs: 10/11/18 06:14 10/11/18 06:14 - Constitutional Appears: Non-toxic - ENT Exam ENT Exam: Mucous Membranes Moist - Respiratory Exam Respiratory Exam: absent: Accessory Muscle Use, Respiratory Distress - Cardiovascular Exam Cardiovascular Exam: REGULAR RHYTHM. absent: Tachycardia - GI/Abdominal Exam GI & Abdominal Exam: Soft. absent: Distended, Tenderness Additional comments: midline erythemaous but improving - Neurological Exam Neurological Exam: Alert, Awake Assessment and Plan - Assessment and Plan (Free Text) Assessment: 73F POD#5 s/p R Hemicolectomy Plan: adv to FLD d/c IV fluids cont OOB and ambulate cardio recs appreciated cont local wound care incentive spirometry will d/w Dr Last Argueta, PGY4 <Derick Ni - Last Filed: 10/11/18 22:53> Objective - Vital Signs/Intake and Output Vital Signs (last 24 hours): Temp Pulse Resp BP Pulse Ox 98.2 F 95 H 20 143/85 99 10/11/18 16:10 10/11/18 16:10 10/11/18 16:10 10/11/18 16:10 10/11/18 16:10 Intake and Output: 10/11/18 10/12/18 18:59 06:59 Intake Total 1650 Balance 1650 - Medications Medications: Current Medications Atorvastatin Calcium (Lipitor) 40 mg PO HS [facility] Last Admin: 10/11/18 21:09 Dose: 40 mg Bacitracin (Bacitracin Oint) 1 applic TOP BID [facility] Last Admin: 10/11/18 16:10 Dose: 1 applic Enoxaparin Sodium (Lovenox) 40 mg SC DAILY [facility]; Protocol Last Admin: 10/11/18 10:32 Dose: 40 mg Fluticasone Propionate (Flonase) 1 spr WILEY DAILY [facility] Last Admin: 10/11/18 10:31 Dose: 1 spr Hydrochlorothiazide (Microzide) 12.5 mg PO DAILY [facility] Last Admin: 10/11/18 10:32 Dose: 12.5 mg Piperacillin Sod/Tazobactam (Sod 3.375 gm/ Sodium Chloride) 100 mls @ 100 mls/hr IVPB Q6 [facility]; Protocol Last Admin: 10/11/18 21:10 Dose: 100 mls/hr Potassium Chloride/Dextrose/Sod Cl (Potassium Chl 20 Meq In D5-1/2ns) 1,000 mls @ 100 mls/hr IV .Q10H [facility] Stop: 10/12/18 22:13 Loratadine (Claritin) 10 mg PO DAILY [facility] Last Admin: 10/11/18 10:31 Dose: 10 mg Methimazole (Tapazole) 5 mg PO TID [facility] Last Admin: 10/11/18 16:09 Dose: 5 mg Metoprolol Succinate (Toprol Xl) 25 mg PO DAILY [facility] Last Admin: 10/11/18 10:33 Dose: 25 mg Montelukast Sodium (Singulair) 10 mg PO HS [facility] Last Admin: 10/11/18 21:09 Dose: 10 mg Ondansetron HCl (Zofran Inj) 4 mg IVP Q6 PRN PRN Reason: Nausea/Vomiting Last Admin: 10/07/18 10:04 Dose: 4 mg Oxycodone HCl (Oxycodone Immediate Release Tab) 5 mg PO Q6 PRN PRN Reason: Pain, moderate (4-7) Last Admin: 10/11/18 21:14 Dose: 5 mg Pantoprazole Sodium (Protonix Ec Tab) 40 mg PO DAILY [facility] Last Admin: 10/11/18 10:33 Dose: 40 mg Simethicone (Mylicon Chew Tab) 80 mg PO Q8 PRN PRN Reason: Flatulence Last Admin: 10/11/18 06:12 Dose: 80 mg - Labs Labs: 10/11/18 06:14 10/11/18 06:14 Assessment and Plan - Assessment and Plan (Free Text) Plan: agree with resident pt resting comfortably, tolerating diet although reports decrease appetite. +BM, flatus. no nausea or vomiting gen: awake, alert, NAD HEENT: NC/AT, EOMI, PERRLA, MMM abd: soft, mild distention, midline incision with hiwot in place surrounding erythema no active drainage, approrpriate incisional tenderness -prn pain control -incentive spirometry -regular diet -cont metoprolol -ambulation
--- NOTE | 2018-10-11 10:21 | CARD ---
APPROVED REPORT Date of service: 10/09/2018 EKG Measurement Heart [id number] <Conclusion> Sinus tachycardia with premature atrial complexes Otherwise normal ECG
[2018-10-11] MEDS: Enoxaparin 40 mg Syringe SC SCH (10:32)
[2018-10-11] MEDS: Metoprolol Succinate 25 mg XL Tab PO SCH (10:33)
[2018-10-11] MEDS: Pantoprazole 40 mg EC Tab PO SCH (10:33)
[2018-10-11] MEDS: methIMAzole 5 MG TAB PO SCH ×3 (10:33→16:09)
[2018-10-11] MEDS: Bacitracin OINT 15GM TOP SCH ×2 (11:41→16:10)
--- NOTE | 2018-10-11 19:34 | PN ---
DATE: 10/11/2018 ENDO FOLLOWUP NOTE LOCATION: Room 651. SUBJECTIVE: This is a 73-year-old female presenting here with persistent sinus tachycardia and just now has been evaluated to have early hyperthyroidism and started on Tapazole medications as given. Her repeat thyroid studies today shows a T4 or thyroxine level of 10.3, with a TSH of 0.19 and a free T4 of 1.93. Chloride 92, CO2 of 31, glucose 136, and creatinine 0.5. ASSESSMENT: This is a 73-year-old female with persistent sinus tachycardia evaluated, subclinical hyperthyroidism, most likely related to hyperthyroidism related to underlying Graves disease. PLAN OF MANAGEMENT: We will continue the low dose medical therapy given as Tapazole at 5 mg p.o. t.i.d. after meals as ordered. We will obtain serial chemistries and titrate her dose regimen accordingly. We will send off also thyroid antibodies, i.e., a thyroid peroxidase antibody and a thyroid stimulating antibody, and the presence of underlying thyroid autoimmune disease. We will obtain serial chemistries and supplement accordingly as needed. We will follow. Marci Robertson MD
[2018-10-12] MEDS: Piperacillin/Tazobact 3.375 GM in Sodium Chloride 0.9% 100 ML IVPB SCH ×4 (03:17→23:07)
[2018-10-12 05:08] LABS: HEMOGLOBIN 10.7 g/dL (12.0-16.0); MEAN CELL VOLUME 89.6 fl (81.0-99.0); MEAN CORPUSCULAR HEMOGLOBIN 29.3 pg (27.0-31.0); MEAN CORPUSCULAR HGB CONC 32.6 g/dL (33.0-37.0); RBC 3.67 Mil/uL (3.80-5.20); RED CELL DISTRIBUTION WIDTH 13.2 % (11.5-14.5); WHITE BLOOD COUNT 9.6 K/uL (4.8-10.8)
--- NOTE | 2018-10-12 07:17 | CP.PCM.PN ---
<Mehul Burroughs - Last Filed: 10/12/18 07:17> Objective - Vital Signs/Intake and Output Vital Signs (last 24 hours): Temp Pulse Resp BP Pulse Ox 98.5 F 103 H 18 116/72 95 10/12/18 00:08 10/12/18 00:08 10/12/18 00:08 10/12/18 00:08 10/12/18 00:08 Intake and Output: 10/12/18 10/12/18 06:59 18:59 Intake Total 1650 Balance 1650 - Medications Medications: Current Medications Atorvastatin Calcium (Lipitor) 40 mg PO HS [facility] Last Admin: 10/11/18 21:09 Dose: 40 mg Bacitracin (Bacitracin Oint) 1 applic TOP BID [facility] Last Admin: 10/11/18 16:10 Dose: 1 applic Enoxaparin Sodium (Lovenox) 40 mg SC DAILY [facility]; Protocol Last Admin: 10/11/18 10:32 Dose: 40 mg Fluticasone Propionate (Flonase) 1 spr WILEY DAILY [facility] Last Admin: 10/11/18 10:31 Dose: 1 spr Hydrochlorothiazide (Microzide) 12.5 mg PO DAILY [facility] Last Admin: 10/11/18 10:32 Dose: 12.5 mg Piperacillin Sod/Tazobactam (Sod 3.375 gm/ Sodium Chloride) 100 mls @ 100 mls/hr IVPB Q6 [facility]; Protocol Last Admin: 10/12/18 03:17 Dose: 100 mls/hr Potassium Chloride/Dextrose/Sod Cl (Potassium Chl 20 Meq In D5-1/2ns) 1,000 mls @ 100 mls/hr IV .Q10H [facility] Stop: 10/12/18 22:13 Last Admin: 10/11/18 23:06 Dose: 100 mls/hr Loratadine (Claritin) 10 mg PO DAILY [facility] Last Admin: 10/11/18 10:31 Dose: 10 mg Methimazole (Tapazole) 5 mg PO TID [facility] Last Admin: 10/11/18 16:09 Dose: 5 mg Metoprolol Succinate (Toprol Xl) 25 mg PO DAILY [facility] Last Admin: 10/11/18 10:33 Dose: 25 mg Montelukast Sodium (Singulair) 10 mg PO HS [facility] Last Admin: 10/11/18 21:09 Dose: 10 mg Ondansetron HCl (Zofran Inj) 4 mg IVP Q6 PRN PRN Reason: Nausea/Vomiting Last Admin: 10/07/18 10:04 Dose: 4 mg Oxycodone HCl (Oxycodone Immediate Release Tab) 5 mg PO Q6 PRN PRN Reason: Pain, moderate (4-7) Last Admin: 10/11/18 21:14 Dose: 5 mg Pantoprazole Sodium (Protonix Ec Tab) 40 mg PO DAILY [facility] Last Admin: 10/11/18 10:33 Dose: 40 mg Simethicone (Mylicon Chew Tab) 80 mg PO Q8 PRN PRN Reason: Flatulence Last Admin: 10/11/18 06:12 Dose: 80 mg - Labs Labs: 10/12/18 04:20 10/11/18 06:14 <James Haque - Last Filed: 10/12/18 11:21> Subjective - Date & Time of Evaluation Date of Evaluation: 10/12/18 Time of Evaluation: 09:00 - Subjective Subjective: Patient was seen and examined at the bedside. Passing flatus and had a bowel movement. Objective - Vital Signs/Intake and Output Vital Signs (last 24 hours): Temp Pulse Resp BP Pulse Ox 99.9 F H 112 H 20 112/70 92 L 10/12/18 08:17 10/12/18 09:09 10/12/18 08:17 10/12/18 09:09 10/12/18 08:17 Intake and Output: 10/12/18 10/12/18 06:59 18:59 Intake Total 1650 Balance 1650 - Medications Medications: Current Medications Atorvastatin Calcium (Lipitor) 40 mg PO HS [facility] Last Admin: 10/11/18 21:09 Dose: 40 mg Bacitracin (Bacitracin Oint) 1 applic TOP BID [facility] Last Admin: 10/12/18 09:07 Dose: 1 applic Enoxaparin Sodium (Lovenox) 40 mg SC DAILY [facility]; Protocol Last Admin: 10/12/18 09:09 Dose: 40 mg Fluticasone Propionate (Flonase) 1 spr WILEY DAILY [facility] Last Admin: 10/12/18 09:08 Dose: 1 spr Hydrochlorothiazide (Microzide) 12.5 mg PO DAILY [facility] Last Admin: 10/12/18 09:10 Dose: 12.5 mg Piperacillin Sod/Tazobactam (Sod 3.375 gm/ Sodium Chloride) 100 mls @ 100 mls/hr IVPB Q6 [facility]; Protocol Last Admin: 10/12/18 09:13 Dose: 100 mls/hr Potassium Chloride/Dextrose/Sod Cl (Potassium Chl 20 Meq In D5-1/2ns) 1,000 mls @ 100 mls/hr IV .Q10H [facility] Stop: 10/12/18 22:13 Last Admin: 10/12/18 09:11 Dose: Not Given Potassium Chloride (Potassium Chloride 20 Meq/100 Ml) 100 mls @ 50 mls/hr IVPB Q2 [facility] Stop: 10/12/18 15:59 Loratadine (Claritin) 10 mg PO DAILY [facility] Last Admin: 10/12/18 09:10 Dose: 10 mg Methimazole (Tapazole) 5 mg PO TID [facility] Last Admin: 10/12/18 09:10 Dose: 5 mg Metoprolol Succinate (Toprol Xl) 25 mg PO DAILY [facility] Last Admin: 10/12/18 09:09 Dose: 25 mg Montelukast Sodium (Singulair) 10 mg PO HS [facility] Last Admin: 10/11/18 21:09 Dose: 10 mg Ondansetron HCl (Zofran Inj) 4 mg IVP Q6 PRN PRN Reason: Nausea/Vomiting Last Admin: 10/07/18 10:04 Dose: 4 mg Oxycodone HCl (Oxycodone Immediate Release Tab) 5 mg PO Q6 PRN PRN Reason: Pain, moderate (4-7) Last Admin: 10/12/18 09:05 Dose: 5 mg Pantoprazole Sodium (Protonix Ec Tab) 40 mg PO DAILY [facility] Last Admin: 10/12/18 09:09 Dose: 40 mg Simethicone (Mylicon Chew Tab) 80 mg PO Q8 PRN PRN Reason: Flatulence Last Admin: 10/11/18 06:12 Dose: 80 mg - Labs Labs: 10/12/18 04:20 10/12/18 09:05 - Constitutional Appears: Well, Non-toxic, No Acute Distress - Head Exam Head Exam: ATRAUMATIC, NORMAL INSPECTION, NORMOCEPHALIC - Eye Exam Eye Exam: EOMI, Normal appearance, PERRL Pupil Exam: NORMAL ACCOMODATION, PERRL - ENT Exam ENT Exam: Mucous Membranes Moist, Normal Exam - Neck Exam Neck Exam: Full ROM, Normal Inspection - Respiratory Exam Respiratory Exam: Clear to Ausculation Bilateral, NORMAL BREATHING PATTERN - Cardiovascular Exam Cardiovascular Exam: Tachycardia, +S1, +S2 - GI/Abdominal Exam GI & Abdominal Exam: Soft, Normal Bowel Sounds Additional comments: arnoldo-incisional tenderness, mildly distended, BS+, no rebound, no guarding, incision clean, mild erythema, no drainage, hiwot in place - Rectal Exam Rectal Exam: Deferred - Extremities Exam Extremities Exam: Full ROM, Normal Inspection - Back Exam Back Exam: NORMAL INSPECTION - Neurological Exam Neurological Exam: Alert, Awake, Oriented x3 - Psychiatric Exam Psychiatric exam: Normal Affect, Normal Mood - Skin Skin Exam: Dry, Intact, Normal Color, Warm Assessment and Plan - Assessment and Plan (Free Text) Assessment: 73 y.o. female s/p right hemicolectomy Plan: - start regular diet - pain control - Insentive spirometry - DVT ppx - replace potassium - Out of bed and ambulate - Cardiology follow up - repeat labs in am
--- NOTE | 2018-10-12 08:01 | CARD ---
APPROVED REPORT Date of service: 10/10/2018 EKG Measurement Heart [id number] <Conclusion> Sinus tachycardia with premature atrial complexes Nonspecific T wave abnormality Abnormal ECG
[2018-10-12] MEDS: oxyCODONE 5 mg Immediate Release Tab PO PRN ×2 (09:05→14:51)
[2018-10-12] MEDS: Bacitracin OINT 15GM TOP SCH ×2 (09:07→17:10)
[2018-10-12] MEDS: Metoprolol Succinate 25 mg XL Tab PO SCH (09:09)
[2018-10-12] MEDS: Enoxaparin 40 mg Syringe SC SCH (09:09)
[2018-10-12] MEDS: Pantoprazole 40 mg EC Tab PO SCH (09:09)
[2018-10-12] MEDS: methIMAzole 5 MG TAB PO SCH ×3 (09:10→17:10)
[2018-10-12] MEDS: Potassium Ch 20mEq in D5-1/2NS 1,000 ML IV SCH ×2 (09:11→17:17)
[2018-10-12 10:21] LABS: BLOOD UREA NITROGEN 5 mg/dl (7-17); CALCIUM 8.3 mg/dL (8.4-10.2); GFR NON-AFRICAN AMERICAN > 60
--- NOTE | 2018-10-12 11:12 | CP.PCM.PN ---
Subjective - Date & Time of Evaluation Date of Evaluation: 10/12/18 Time of Evaluation: 11:10 - Subjective Subjective: pt c/o abd pain. no f/c, n/v/d. temp 99.9 and hr noted. dsg c/d/i on zosyn spoke w/ surgical supply assistant Objective - Vital Signs/Intake and Output Vital Signs (last 24 hours): Temp Pulse Resp BP Pulse Ox 99.9 F H 112 H 20 112/70 92 L 10/12/18 08:17 10/12/18 09:09 10/12/18 08:17 10/12/18 09:09 10/12/18 08:17 Intake and Output: 10/12/18 10/12/18 06:59 18:59 Intake Total 1650 Balance 1650 - Medications Medications: Current Medications Atorvastatin Calcium (Lipitor) 40 mg PO HS [facility] Last Admin: 10/11/18 21:09 Dose: 40 mg Bacitracin (Bacitracin Oint) 1 applic TOP BID [facility] Last Admin: 10/12/18 09:07 Dose: 1 applic Enoxaparin Sodium (Lovenox) 40 mg SC DAILY [facility]; Protocol Last Admin: 10/12/18 09:09 Dose: 40 mg Fluticasone Propionate (Flonase) 1 spr WILEY DAILY [facility] Last Admin: 10/12/18 09:08 Dose: 1 spr Hydrochlorothiazide (Microzide) 12.5 mg PO DAILY [facility] Last Admin: 10/12/18 09:10 Dose: 12.5 mg Piperacillin Sod/Tazobactam (Sod 3.375 gm/ Sodium Chloride) 100 mls @ 100 mls/hr IVPB Q6 [facility]; Protocol Last Admin: 10/12/18 09:13 Dose: 100 mls/hr Potassium Chloride/Dextrose/Sod Cl (Potassium Chl 20 Meq In D5-1/2ns) 1,000 mls @ 100 mls/hr IV .Q10H [facility] Stop: 10/12/18 22:13 Last Admin: 10/12/18 09:11 Dose: Not Given Potassium Chloride (Potassium Chloride 20 Meq/100 Ml) 100 mls @ 50 mls/hr IVPB Q2 [facility] Stop: 10/12/18 15:59 Loratadine (Claritin) 10 mg PO DAILY [facility] Last Admin: 10/12/18 09:10 Dose: 10 mg Methimazole (Tapazole) 5 mg PO TID [facility] Last Admin: 10/12/18 09:10 Dose: 5 mg Metoprolol Succinate (Toprol Xl) 25 mg PO DAILY [facility] Last Admin: 10/12/18 09:09 Dose: 25 mg Montelukast Sodium (Singulair) 10 mg PO HS [facility] Last Admin: 10/11/18 21:09 Dose: 10 mg Ondansetron HCl (Zofran Inj) 4 mg IVP Q6 PRN PRN Reason: Nausea/Vomiting Last Admin: 10/07/18 10:04 Dose: 4 mg Oxycodone HCl (Oxycodone Immediate Release Tab) 5 mg PO Q6 PRN PRN Reason: Pain, moderate (4-7) Last Admin: 10/12/18 09:05 Dose: 5 mg Pantoprazole Sodium (Protonix Ec Tab) 40 mg PO DAILY [facility] Last Admin: 10/12/18 09:09 Dose: 40 mg Simethicone (Mylicon Chew Tab) 80 mg PO Q8 PRN PRN Reason: Flatulence Last Admin: 10/11/18 06:12 Dose: 80 mg - Labs Labs: 10/12/18 04:20 10/12/18 09:05 - Constitutional Appears: Well, Non-toxic, No Acute Distress - Head Exam Head Exam: ATRAUMATIC, NORMAL INSPECTION, NORMOCEPHALIC - Eye Exam Eye Exam: EOMI, Normal appearance, PERRL Pupil Exam: NORMAL ACCOMODATION, PERRL - ENT Exam ENT Exam: Mucous Membranes Moist, Normal Exam - Neck Exam Neck Exam: Full ROM, Normal Inspection. absent: Lymphadenopathy - Respiratory Exam Respiratory Exam: Clear to Ausculation Bilateral, NORMAL BREATHING PATTERN - Cardiovascular Exam Cardiovascular Exam: Tachycardia, REGULAR RHYTHM, RRR, +S1, +S2. absent: Murmur - GI/Abdominal Exam GI & Abdominal Exam: Distended, Soft, Normal Bowel Sounds. absent: Tenderness - Extremities Exam Extremities Exam: Full ROM, Normal Capillary Refill, Normal Inspection. absent: Joint Swelling, Pedal Edema - Back Exam Back Exam: NORMAL INSPECTION - Neurological Exam Neurological Exam: Alert, Awake, CN II-XII Intact, Normal Gait, Oriented x3 - Psychiatric Exam Psychiatric exam: Normal Affect, Normal Mood - Skin Skin Exam: Dry, Intact, Normal Color, Warm Assessment and Plan (1) Colon cancer Assessment & Plan: path penidng out pt heme/onc Status: Acute (2) DVT prophylaxis Assessment & Plan: scd nad aehose lovenox Status: Acute (3) S/P colon resection Assessment & Plan: temp and hr noted zosyn surgery pain control Status: Acute (4) Tachycardia Assessment & Plan: hydration fever control ct noted. ?? ID consult if no improvement in pain/fever/tachycardia Status: Acute
[2018-10-12] MEDS: Potassium Chloride 20 mEq 100 ML IVPB SCH ×3 (14:56→17:18)
[2018-10-12] MEDS ORDERED: Potassium Chloride 20 mEq/15 ml LIQ UD PO SCH (17:30)
[2018-10-12] MEDS ORDERED: Potassium Chloride 20 mEq/15 ml LIQ UD PO ONE (17:42)
--- NOTE | 2018-10-12 18:14 | CP.PCM.PN ---
Subjective - Date & Time of Evaluation Date of Evaluation: 10/11/18 Time of Evaluation: 18:12 - Subjective Subjective: pt doign well. no f/c, n/v/d. no abd pain. juliette po. Objective - Vital Signs/Intake and Output Vital Signs (last 24 hours): Temp Pulse Resp BP Pulse Ox 97.6 F 112 H 20 133/81 94 L 10/12/18 17:00 10/12/18 17:00 10/12/18 17:00 10/12/18 17:00 10/12/18 17:00 Intake and Output: 10/12/18 10/12/18 06:59 18:59 Intake Total 1650 Balance 1650 - Medications Medications: Current Medications Atorvastatin Calcium (Lipitor) 40 mg PO HS [facility] Last Admin: 10/11/18 21:09 Dose: 40 mg Bacitracin (Bacitracin Oint) 1 applic TOP BID [facility] Last Admin: 10/12/18 17:10 Dose: 1 applic Enoxaparin Sodium (Lovenox) 40 mg SC DAILY [facility]; Protocol Last Admin: 10/12/18 09:09 Dose: 40 mg Fluticasone Propionate (Flonase) 1 spr WILEY DAILY [facility] Last Admin: 10/12/18 09:08 Dose: 1 spr Hydrochlorothiazide (Microzide) 12.5 mg PO DAILY [facility] Last Admin: 10/12/18 09:10 Dose: 12.5 mg Piperacillin Sod/Tazobactam (Sod 3.375 gm/ Sodium Chloride) 100 mls @ 100 mls/hr IVPB Q6 [facility]; Protocol Last Admin: 10/12/18 17:10 Dose: 100 mls/hr Potassium Chloride/Dextrose/Sod Cl (Potassium Chl 20 Meq In D5-1/2ns) 1,000 mls @ 100 mls/hr IV .Q10H [facility] Stop: 10/12/18 22:13 Last Admin: 10/12/18 17:17 Dose: Not Given Loratadine (Claritin) 10 mg PO DAILY [facility] Last Admin: 10/12/18 09:10 Dose: 10 mg Methimazole (Tapazole) 5 mg PO TID [facility] Last Admin: 10/12/18 17:10 Dose: 5 mg Metoprolol Succinate (Toprol Xl) 25 mg PO DAILY [facility] Last Admin: 10/12/18 09:09 Dose: 25 mg Montelukast Sodium (Singulair) 10 mg PO HS [facility] Last Admin: 10/11/18 21:09 Dose: 10 mg Ondansetron HCl (Zofran Inj) 4 mg IVP Q6 PRN PRN Reason: Nausea/Vomiting Last Admin: 10/07/18 10:04 Dose: 4 mg Oxycodone HCl (Oxycodone Immediate Release Tab) 5 mg PO Q6 PRN PRN Reason: Pain, moderate (4-7) Last Admin: 10/12/18 14:51 Dose: 5 mg Pantoprazole Sodium (Protonix Ec Tab) 40 mg PO DAILY [facility] Last Admin: 10/12/18 09:09 Dose: 40 mg Simethicone (Mylicon Chew Tab) 80 mg PO Q8 PRN PRN Reason: Flatulence Last Admin: 10/11/18 06:12 Dose: 80 mg - Labs Labs: 10/12/18 04:20 10/12/18 09:05 - Constitutional Appears: Well, Non-toxic, No Acute Distress - Head Exam Head Exam: ATRAUMATIC, NORMAL INSPECTION, NORMOCEPHALIC - Eye Exam Eye Exam: EOMI, Normal appearance, PERRL Pupil Exam: NORMAL ACCOMODATION, PERRL - ENT Exam ENT Exam: Mucous Membranes Moist, Normal Exam - Neck Exam Neck Exam: Full ROM, Normal Inspection. absent: Lymphadenopathy - Respiratory Exam Respiratory Exam: Clear to Ausculation Bilateral, NORMAL BREATHING PATTERN - Cardiovascular Exam Cardiovascular Exam: REGULAR RHYTHM, RRR, +S1, +S2. absent: Murmur - GI/Abdominal Exam GI & Abdominal Exam: Soft, Normal Bowel Sounds. absent: Tenderness Additional comments: dsg c/d/i - Extremities Exam Extremities Exam: Full ROM, Normal Capillary Refill, Normal Inspection. absent: Joint Swelling, Pedal Edema - Back Exam Back Exam: NORMAL INSPECTION - Neurological Exam Neurological Exam: Alert, Awake, CN II-XII Intact, Normal Gait, Oriented x3 - Psychiatric Exam Psychiatric exam: Normal Affect, Normal Mood - Skin Skin Exam: Dry, Intact, Normal Color, Warm Assessment and Plan (1) Colon cancer Assessment & Plan: pending path, outpt heme/onc pain control s/p resection surgery f/u Status: Acute (2) DVT prophylaxis Assessment & Plan: scd adn ae hose lovenox Status: Acute (3) Tachycardia Assessment & Plan: ivf zosyn Status: Acute
--- NOTE | 2018-10-12 18:31 | PN ---
DATE: 10/12/2018 ENDO FOLLOWUP NOTE ROOM: 651 SUBJECTIVE: This is a 73-year-old female with recent overt hyperthyroidism, presenting here with persistent sinus tachycardia and is now being followed closely for metabolic management. Her repeat chemistry showed a BUN of 5, sodium 131, potassium 3.3, chloride 97, CO2 27, glucose 118 and creatinine 0.5. Her thyroid studies showed a T4 of 10.3 with a TSH of 0.19 and a free T4 of 1.53. 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 PLAN OF MANAGEMENT: We will continue the modified medical therapy for Tapazole given as 5 mg p.o. t.i.d. after meals as ordered. It takes 4 to 6 weeks for the dose to respond to the aforementioned medications accordingly. We will obtain serial chemistries and supplement accordingly needed. We will follow. Marci Robertson MD
[2018-10-12] MEDS: Simethicone 80 mg Chewtab PO PRN (21:35)
[2018-10-12] MEDS ORDERED: Chlorhexidine Gluconate 1 APPL/PKT TP ONE (22:04)
[2018-10-12] MEDS ORDERED: Lidocaine/Prilocaine CREAM 5GM TP ONE ×2 (22:04→22:09)
--- NOTE | 2018-10-12 22:13 | CP.PCM.PN ---
Subjective - Date & Time of Evaluation Date of Evaluation: 10/12/18 Time of Evaluation: 22:11 - Subjective Subjective: Patient was complaining of abdominal distention and had episode of bilious vomiting. Patient refusing NGT at this time stating she "feels much better now." Patient was informed that if she continues to vomit that NGT will help but still refusing. Nurse was present at bedside. Objective - Vital Signs/Intake and Output Vital Signs (last 24 hours): Temp Pulse Resp BP Pulse Ox 97.6 F 112 H 20 133/81 94 L 10/12/18 17:00 10/12/18 17:00 10/12/18 17:00 10/12/18 17:00 10/12/18 17:00 - Medications Medications: Current Medications Atorvastatin Calcium (Lipitor) 40 mg PO HS [facility] Last Admin: 10/11/18 21:09 Dose: 40 mg Bacitracin (Bacitracin Oint) 1 applic TOP BID [facility] Last Admin: 10/12/18 17:10 Dose: 1 applic Enoxaparin Sodium (Lovenox) 40 mg SC DAILY [facility]; Protocol Last Admin: 10/12/18 09:09 Dose: 40 mg Fluticasone Propionate (Flonase) 1 spr WILEY DAILY [facility] Last Admin: 10/12/18 09:08 Dose: 1 spr Hydrochlorothiazide (Microzide) 12.5 mg PO DAILY [facility] Last Admin: 10/12/18 09:10 Dose: 12.5 mg Piperacillin Sod/Tazobactam (Sod 3.375 gm/ Sodium Chloride) 100 mls @ 100 mls/hr IVPB Q6 [facility]; Protocol Last Admin: 10/12/18 17:10 Dose: 100 mls/hr Potassium Chloride/Dextrose/Sod Cl (Potassium Chl 20 Meq In D5-1/2ns) 1,000 mls @ 100 mls/hr IV .Q10H [facility] Stop: 10/12/18 22:13 Last Admin: 10/12/18 17:17 Dose: Not Given Lidocaine/Prilocaine (Lidocaine/Prilocaine 2.5%-2.5%) 1 applic TP ONCE ONE Stop: 10/12/18 22:10 Loratadine (Claritin) 10 mg PO DAILY [facility] Last Admin: 10/12/18 09:10 Dose: 10 mg Methimazole (Tapazole) 5 mg PO TID [facility] Last Admin: 10/12/18 17:10 Dose: 5 mg Metoprolol Succinate (Toprol Xl) 25 mg PO DAILY [facility] Last Admin: 10/12/18 09:09 Dose: 25 mg Montelukast Sodium (Singulair) 10 mg PO HS [facility] Last Admin: 10/11/18 21:09 Dose: 10 mg Ondansetron HCl (Zofran Inj) 4 mg IVP Q6 PRN PRN Reason: Nausea/Vomiting Last Admin: 10/12/18 21:54 Dose: 4 mg Oxycodone HCl (Oxycodone Immediate Release Tab) 5 mg PO Q6 PRN PRN Reason: Pain, moderate (4-7) Last Admin: 10/12/18 14:51 Dose: 5 mg Pantoprazole Sodium (Protonix Ec Tab) 40 mg PO DAILY [facility] Last Admin: 10/12/18 09:09 Dose: 40 mg Simethicone (Mylicon Chew Tab) 80 mg PO Q8 PRN PRN Reason: Flatulence Last Admin: 10/11/18 06:12 Dose: 80 mg - Labs Labs: 10/12/18 04:20 10/12/18 09:05 - Constitutional Appears: No Acute Distress - Head Exam Head Exam: ATRAUMATIC, NORMOCEPHALIC - Eye Exam Pupil Exam: PERRL - ENT Exam ENT Exam: Mucous Membranes Moist - Respiratory Exam Respiratory Exam: NORMAL BREATHING PATTERN - Cardiovascular Exam Cardiovascular Exam: Tachycardia - GI/Abdominal Exam GI & Abdominal Exam: Distended (mildly), Soft. absent: Firm, Guarding, Rigid, Tenderness, Rebound - Extremities Exam Extremities Exam: Normal Capillary Refill - Back Exam Back Exam: absent: CVA tenderness (L), CVA tenderness (R) - Neurological Exam Neurological Exam: Alert, Awake, CN II-XII Intact, Normal Gait, Oriented x3 - Psychiatric Exam Psychiatric exam: Normal Affect, Normal Mood - Skin Skin Exam: Dry, Warm
[2018-10-13] MEDS: Potassium Ch 20mEq in D5-1/2NS 1,000 ML IV SCH ×3 (03:42→23:13)
[2018-10-13] MEDS: Piperacillin/Tazobact 3.375 GM in Sodium Chloride 0.9% 100 ML IVPB SCH ×2 (04:48→09:03)
[2018-10-13 06:36] LABS: BASO % 0.4 % (0.0-2.0); EOS % 0.4 % (0.0-4.0); LYMPH # 1.2 K/uL (1.0-4.3); LYMPH % 15.9 % (20.0-40.0); MEAN CELL VOLUME 88.3 fl (81.0-99.0); MEAN CORPUSCULAR HEMOGLOBIN 29.4 pg (27.0-31.0); MEAN CORPUSCULAR HGB CONC 33.2 g/dL (33.0-37.0); MEAN PLATELET VOLUME 7.2 fl (7.2-11.7); MONO % 13.9 % (0.0-10.0); NEUT # 5.1 K/uL (1.8-7.0); NEUT % 69.4 % (50.0-75.0); RBC 3.4 Mil/uL (3.80-5.20); WHITE BLOOD COUNT 7.4 K/uL (4.8-10.8)
[2018-10-13 07:38] LABS: ALB/GLOB RATIO 1.1 (1.0-2.1); ALT/SGPT 41 U/L (9-52); AST/SGOT 34 U/L (14-36); BLOOD UREA NITROGEN 6 mg/dl (7-17); CALCIUM 7.9 mg/dL (8.4-10.2); GFR NON-AFRICAN AMERICAN > 60
[2018-10-13] MEDS ORDERED: Potassium Chloride 20 mEq/15 ml LIQ UD PO ONE (08:30)
--- NOTE | 2018-10-13 08:44 | RAD ---
Date of service: 10/13/2018 HISTORY: nausea/vomiting, distention COMPARISON: Abdomen pelvis CT 10/09/2018. FINDINGS: BOWEL: Postoperative ileus changes are again identified with gas seen mildly distending large-bowel loops mildly seen distending various small bowel loops in the abdomen. No definite bowel obstruction appreciated no prominent free intra peritoneal gas collection. Gas is identified mildly distending the stomach. Skin hiwot are identified at the midline abdomen as well as upper central abdomen and left upper quadrant abdominal skin. No abnormal intra-abdominal calcification appears suture material is seen at the right lower quadrant bowel. BONES: Normal. OTHER FINDINGS: None. IMPRESSION: No significant interval change in postoperative ileus pattern in the abdomen. No definite bowel obstruction pattern evident. No prominent free intra peritoneal gas collection identified.
[2018-10-13] MEDS: methIMAzole 5 MG TAB PO SCH (09:00)
[2018-10-13] MEDS: Bacitracin OINT 15GM TOP SCH ×2 (09:00→16:48)
[2018-10-13] MEDS: Pantoprazole 40 mg EC Tab PO SCH (09:00)
[2018-10-13] MEDS: Metoprolol Succinate 25 mg XL Tab PO SCH (09:00)
[2018-10-13] MEDS: Enoxaparin 40 mg Syringe SC SCH (09:01)
--- NOTE | 2018-10-13 09:15 | CP.PCM.PN ---
Subjective - Date & Time of Evaluation Date of Evaluation: 10/13/18 Time of Evaluation: 09:13 - Subjective Subjective: pt looks more comfortable today. no f/c, n/v/d. juliette liquids. bw noted Objective - Vital Signs/Intake and Output Vital Signs (last 24 hours): Temp Pulse Resp BP Pulse Ox 98.4 F 92 H 20 104/64 94 L 10/13/18 08:24 10/13/18 09:00 10/13/18 08:24 10/13/18 09:00 10/13/18 08:24 - Medications Medications: Current Medications Atorvastatin Calcium (Lipitor) 40 mg PO HS [facility] Last Admin: 10/12/18 23:03 Dose: Not Given Bacitracin (Bacitracin Oint) 1 applic TOP BID [facility] Last Admin: 10/13/18 09:00 Dose: 1 applic Enoxaparin Sodium (Lovenox) 40 mg SC DAILY [facility]; Protocol Last Admin: 10/13/18 09:01 Dose: 40 mg Fluticasone Propionate (Flonase) 1 spr WILEY DAILY [facility] Last Admin: 10/13/18 09:02 Dose: 1 spr Hydrochlorothiazide (Microzide) 12.5 mg PO DAILY [facility] Last Admin: 10/13/18 09:01 Dose: 12.5 mg Piperacillin Sod/Tazobactam (Sod 3.375 gm/ Sodium Chloride) 100 mls @ 100 mls/hr IVPB Q6 [facility]; Protocol Last Admin: 10/13/18 09:03 Dose: 100 mls/hr Potassium Chloride/Dextrose/Sod Cl (Potassium Chl 20 Meq In D5-1/2ns) 1,000 mls @ 100 mls/hr IV .Q10H [facility] Stop: 10/14/18 03:08 Last Admin: 10/13/18 03:42 Dose: 100 mls/hr Loratadine (Claritin) 10 mg PO DAILY [facility] Last Admin: 10/13/18 09:01 Dose: 10 mg Methimazole (Tapazole) 5 mg PO TID [facility] Last Admin: 10/13/18 09:00 Dose: 5 mg Metoprolol Succinate (Toprol Xl) 25 mg PO DAILY [facility] Last Admin: 10/13/18 09:00 Dose: 25 mg Montelukast Sodium (Singulair) 10 mg PO HS [facility] Last Admin: 10/12/18 22:58 Dose: 10 mg Ondansetron HCl (Zofran Inj) 4 mg IVP Q6 PRN PRN Reason: Nausea/Vomiting Last Admin: 10/12/18 21:54 Dose: 4 mg Oxycodone HCl (Oxycodone Immediate Release Tab) 5 mg PO Q6 PRN PRN Reason: Pain, moderate (4-7) Last Admin: 10/12/18 14:51 Dose: 5 mg Pantoprazole Sodium (Protonix Ec Tab) 40 mg PO DAILY [facility] Last Admin: 10/13/18 09:00 Dose: 40 mg Simethicone (Mylicon Chew Tab) 80 mg PO Q8 PRN PRN Reason: Flatulence Last Admin: 10/12/18 21:35 Dose: 80 mg - Labs Labs: 10/13/18 05:35 10/13/18 05:35 - Constitutional Appears: Well, Non-toxic, No Acute Distress - Head Exam Head Exam: ATRAUMATIC, NORMAL INSPECTION, NORMOCEPHALIC - Eye Exam Eye Exam: EOMI, Normal appearance, PERRL Pupil Exam: NORMAL ACCOMODATION, PERRL - ENT Exam ENT Exam: Mucous Membranes Moist, Normal Exam - Neck Exam Neck Exam: Full ROM, Normal Inspection. absent: Lymphadenopathy - Respiratory Exam Respiratory Exam: Clear to Ausculation Bilateral, NORMAL BREATHING PATTERN - Cardiovascular Exam Cardiovascular Exam: REGULAR RHYTHM, RRR, +S1, +S2. absent: Murmur - GI/Abdominal Exam GI & Abdominal Exam: Soft, Normal Bowel Sounds. absent: Tenderness Additional comments: less distended than yesterday - Extremities Exam Extremities Exam: Full ROM, Normal Capillary Refill, Normal Inspection. absent: Joint Swelling, Pedal Edema - Back Exam Back Exam: NORMAL INSPECTION - Neurological Exam Neurological Exam: Alert, Awake, CN II-XII Intact, Normal Gait, Oriented x3 - Psychiatric Exam Psychiatric exam: Normal Affect, Normal Mood - Skin Skin Exam: Dry, Intact, Normal Color, Warm Assessment and Plan (1) Colon cancer Assessment & Plan: outpt heme/onc Status: Acute (2) DVT prophylaxis Assessment & Plan: scd and ae hose lovenox Status: Acute (3) S/P colon resection Assessment & Plan: pain control surgery liquid diet/ adv as tolerated Status: Acute (4) Tachycardia Assessment & Plan: improved. will follow Status: Acute
--- NOTE | 2018-10-13 10:06 | CP.PCM.PN ---
<Abraham Mike - Last Filed: 10/13/18 10:04> Subjective - Date & Time of Evaluation Date of Evaluation: 10/13/18 Time of Evaluation: 10:04 - Subjective Subjective: General Surgery Progress Note for Dr. Ni This 73F was seen and examined this AM at bedside. One episode of emesis overnight, for which pt refused NGT. This am she lacks apatite however she reports she is feeling better. She denies fevers chills chest pain. Was having flatus however today she denies flatus. Objective - Vital Signs/Intake and Output Vital Signs (last 24 hours): Temp Pulse Resp BP Pulse Ox 98.4 F 92 H 20 104/64 94 L 10/13/18 08:24 10/13/18 09:00 10/13/18 08:24 10/13/18 09:00 10/13/18 08:24 - Medications Medications: Current Medications Atorvastatin Calcium (Lipitor) 40 mg PO [facility] Last Admin: 10/12/18 23:03 Dose: Not Given Bacitracin (Bacitracin Oint) 1 applic TOP BID [facility] Last Admin: 10/13/18 09:00 Dose: 1 applic Enoxaparin Sodium (Lovenox) 40 mg SC DAILY [facility]; Protocol Last Admin: 10/13/18 09:01 Dose: 40 mg Fluticasone Propionate (Flonase) 1 spr WILEY DAILY [facility] Last Admin: 10/13/18 09:02 Dose: 1 spr Hydrochlorothiazide (Microzide) 12.5 mg PO DAILY [facility] Last Admin: 10/13/18 09:01 Dose: 12.5 mg Potassium Chloride/Dextrose/Sod Cl (Potassium Chl 20 Meq In D5-1/2ns) 1,000 mls @ 100 mls/hr IV .Q10H [facility] Stop: 10/14/18 03:08 Last Admin: 10/13/18 03:42 Dose: 100 mls/hr Loratadine (Claritin) 10 mg PO DAILY [facility] Last Admin: 10/13/18 09:01 Dose: 10 mg Methimazole (Tapazole) 10 mg PO BID [facility] Metoprolol Succinate (Toprol Xl) 25 mg PO DAILY [facility] Last Admin: 10/13/18 09:00 Dose: 25 mg Montelukast Sodium (Singulair) 10 mg PO [facility] Last Admin: 10/12/18 22:58 Dose: 10 mg Ondansetron HCl (Zofran Inj) 4 mg IVP Q6 PRN PRN Reason: Nausea/Vomiting Last Admin: 10/12/18 21:54 Dose: 4 mg Oxycodone HCl (Oxycodone Immediate Release Tab) 5 mg PO Q6 PRN PRN Reason: Pain, moderate (4-7) Last Admin: 10/12/18 14:51 Dose: 5 mg Pantoprazole Sodium (Protonix Ec Tab) 40 mg PO DAILY [facility] Last Admin: 10/13/18 09:00 Dose: 40 mg Simethicone (Mylicon Chew Tab) 80 mg PO Q8 PRN PRN Reason: Flatulence Last Admin: 10/12/18 21:35 Dose: 80 mg - Labs Labs: 10/13/18 05:35 10/13/18 05:35 - Constitutional Appears: Non-toxic, In Acute Distress - Head Exam Head Exam: ATRAUMATIC, NORMOCEPHALIC - Eye Exam Eye Exam: EOMI, Normal appearance - ENT Exam ENT Exam: Mucous Membranes Moist - Respiratory Exam Respiratory Exam: NORMAL BREATHING PATTERN - Cardiovascular Exam Cardiovascular Exam: REGULAR RHYTHM - GI/Abdominal Exam GI & Abdominal Exam: Distended, Soft. absent: Guarding, Rigid, Tenderness Additional comments: Right periinscisional erythema, with minimal fluid expression - Neurological Exam Neurological Exam: Alert, Awake Assessment and Plan - Assessment and Plan (Free Text) Assessment: 73 y.o. female s/p right hemicolectomy Ice chips ambulate abdominal binder incentive spirometer Partial removal of hiwot Will continue to follow Further recs by Dr. Last Mike PGY3 <Derick Ni - Last Filed: 10/13/18 10:31> Objective - Vital Signs/Intake and Output Vital Signs (last 24 hours): Temp Pulse Resp BP Pulse Ox 98.4 F 92 H 20 104/64 94 L 10/13/18 08:24 10/13/18 09:00 10/13/18 08:24 10/13/18 09:00 10/13/18 08:24 - Medications Medications: Current Medications Atorvastatin Calcium (Lipitor) 40 mg PO HS [facility] Last Admin: 10/12/18 23:03 Dose: Not Given Bacitracin (Bacitracin Oint) 1 applic TOP BID [facility] Last Admin: 10/13/18 09:00 Dose: 1 applic Enoxaparin Sodium (Lovenox) 40 mg SC DAILY [facility]; Protocol Last Admin: 10/13/18 09:01 Dose: 40 mg Fluticasone Propionate (Flonase) 1 spr WILEY DAILY [facility] Last Admin: 10/13/18 09:02 Dose: 1 spr Hydrochlorothiazide (Microzide) 12.5 mg PO DAILY [facility] Last Admin: 10/13/18 09:01 Dose: 12.5 mg Potassium Chloride/Dextrose/Sod Cl (Potassium Chl 20 Meq In D5-1/2ns) 1,000 mls @ 100 mls/hr IV .Q10H [facility] Stop: 10/14/18 03:08 Last Admin: 10/13/18 03:42 Dose: 100 mls/hr Potassium Chloride (Potassium Chloride 20 Meq/100 Ml) 100 mls @ 50 mls/hr IV Q2 [facility] Stop: 10/13/18 19:59 Loratadine (Claritin) 10 mg PO DAILY [facility] Last Admin: 10/13/18 09:01 Dose: 10 mg Methimazole (Tapazole) 10 mg PO BID [facility] Metoprolol Succinate (Toprol Xl) 25 mg PO DAILY [facility] Last Admin: 10/13/18 09:00 Dose: 25 mg Montelukast Sodium (Singulair) 10 mg PO HS [facility] Last Admin: 10/12/18 22:58 Dose: 10 mg Ondansetron HCl (Zofran Inj) 4 mg IVP Q6 PRN PRN Reason: Nausea/Vomiting Last Admin: 10/12/18 21:54 Dose: 4 mg Oxycodone HCl (Oxycodone Immediate Release Tab) 5 mg PO Q6 PRN PRN Reason: Pain, moderate (4-7) Last Admin: 10/12/18 14:51 Dose: 5 mg Pantoprazole Sodium (Protonix Ec Tab) 40 mg PO DAILY [facility] Last Admin: 10/13/18 09:00 Dose: 40 mg Simethicone (Mylicon Chew Tab) 80 mg PO Q8 PRN PRN Reason: Flatulence Last Admin: 10/12/18 21:35 Dose: 80 mg - Labs Labs: 10/13/18 05:35 10/13/18 05:35 Assessment and Plan - Assessment and Plan (Free Text) Plan: seen at bedside, overnight pt had an episode of emesis. Pt currently denies any nausea or vomiting, she states she feels better. +Flatus, no BM. Pt is ambulating, remains afebrile, hemodyncamilly stable. HR 92-97 gen: awake, alert, NAD no acuter respiratory distress abd: soft, mild distention, appropriate incisional tenderness, midline incision with hiwot, periincisional erythema, minimal serosanguinous drainage ext: no edema a/p s/p lap lysis of adhesions, open right hemicolectomy prn pain control incentive spirometry NPo except meds, ok for ice chips IV fluids replete potassium repeat labs in am dvt prophylaxis ambulation
[2018-10-13] MEDS: Potassium Chloride 20 mEq 100 ML IV SCH ×5 (10:44→19:20)
--- NOTE | 2018-10-13 13:44 | PN ---
DATE: 10/13/2018 LOCATION: Room 651. SUBJECTIVE: This is a 73-year-old female with recent overt hyperthyroidism noted both historically, clinically and biochemically and presenting also here with persistent sinus tachycardia and is now improving clinically and hemodynamically as noted thereof. Her repeat thyroid studies today, however, showed a T4 or thyroxine level of 11.3 mcg/dL with a free T4 of 1.45 and a TSH of 0.26 which is slowly improving accordingly as noted. However, with the further elevation of the T4 level, the patient still continues to have persistent hyperthyroxinemia as noted thereof. PLAN OF MANAGEMENT: We will modify once again her medical therapy for hyperthyroidism and increase the Tapazole to 10 mg b.i.d. after meals as ordered. This will be started today as ordered. We will obtain serial chemistries and supplement accordingly as needed. We will also obtain serial thyroid studies and titrate her dose regimen accordingly. We will follow up. Marci Robertson MD
[2018-10-14] MEDS: oxyCODONE 5 mg Immediate Release Tab PO PRN ×3 (03:06→22:17)
[2018-10-14] MEDS: Simethicone 80 mg Chewtab PO PRN ×2 (04:32→21:04)
[2018-10-14 08:16] LABS: BASO % 0.2 % (0.0-2.0); EOS # 0.2 K/uL (0.0-0.7); EOS % 2.7 % (0.0-4.0); LYMPH # 1.2 K/uL (1.0-4.3); LYMPH % 17.6 % (20.0-40.0); MEAN CELL VOLUME 89.4 fl (81.0-99.0); MEAN CORPUSCULAR HEMOGLOBIN 29.4 pg (27.0-31.0); MEAN CORPUSCULAR HGB CONC 32.9 g/dL (33.0-37.0); MEAN PLATELET VOLUME 7.2 fl (7.2-11.7); MONO # 0.8 K/uL (0.0-0.8); MONO % 11.8 % (0.0-10.0); NEUT # 4.6 K/uL (1.8-7.0); NEUT % 67.7 % (50.0-75.0); RBC 3.75 Mil/uL (3.80-5.20); WHITE BLOOD COUNT 6.8 K/uL (4.8-10.8)
[2018-10-14 08:38] LABS: BLOOD UREA NITROGEN 5 mg/dl (7-17); CALCIUM 8.6 mg/dL (8.4-10.2); GFR NON-AFRICAN AMERICAN > 60
[2018-10-14] MEDS: Bacitracin OINT 15GM TOP SCH ×2 (09:32→16:53)
[2018-10-14] MEDS: Enoxaparin 40 mg Syringe SC SCH (09:32)
[2018-10-14] MEDS: Metoprolol Succinate 25 mg XL Tab PO SCH (09:33)
[2018-10-14] MEDS: Pantoprazole 40 mg EC Tab PO SCH (09:33)
--- NOTE | 2018-10-14 09:34 | CP.PCM.PN ---
Subjective - Date & Time of Evaluation Date of Evaluation: 10/14/18 Time of Evaluation: 09:31 - Subjective Subjective: seen at beside, no overnight events. Pt afebrile, hemodynamically stable. HR 90S. Pt currently NPO, no further episodes of nausea or vomiting. Reports passing flatus but no BM. gen: awake, alert, NAD no acute respiratory distress abd: soft, mild distention, appropriate incisional drainage, midline incision with hiwot in place, surrounding erythema, minimal serosanguinous drainage ext: no calf tenderness, or edema a/p cont prn pain control incentive spirometry clear liquid diet, +ensure clears cont IVF cont Abx warm compresses to midline wound dvt prophylaxis encourage ambulation Objective - Vital Signs/Intake and Output Vital Signs (last 24 hours): Temp Pulse Resp BP Pulse Ox 98.3 F 89 20 144/73 100 10/14/18 08:34 10/14/18 08:34 10/14/18 08:34 10/14/18 08:34 10/14/18 08:34 - Medications Medications: Current Medications Atorvastatin Calcium (Lipitor) 40 mg PO HS [facility] Last Admin: 10/13/18 21:36 Dose: 40 mg Bacitracin (Bacitracin Oint) 1 applic TOP BID [facility] Last Admin: 10/13/18 16:48 Dose: 1 applic Enoxaparin Sodium (Lovenox) 40 mg SC DAILY [facility]; Protocol Last Admin: 10/13/18 09:01 Dose: 40 mg Fluticasone Propionate (Flonase) 1 spr WILEY DAILY [facility] Last Admin: 10/13/18 09:02 Dose: 1 spr Hydrochlorothiazide (Microzide) 12.5 mg PO DAILY [facility] Last Admin: 10/13/18 09:01 Dose: 12.5 mg Loratadine (Claritin) 10 mg PO DAILY [facility] Last Admin: 10/13/18 09:01 Dose: 10 mg Methimazole (Tapazole) 10 mg PO BID [facility] Last Admin: 10/13/18 16:48 Dose: 10 mg Metoprolol Succinate (Toprol Xl) 25 mg PO DAILY [facility] Last Admin: 10/13/18 09:00 Dose: 25 mg Montelukast Sodium (Singulair) 10 mg PO HS [facility] Last Admin: 10/13/18 21:37 Dose: 10 mg Ondansetron HCl (Zofran Inj) 4 mg IVP Q6 PRN PRN Reason: Nausea/Vomiting Last Admin: 10/12/18 21:54 Dose: 4 mg Oxycodone HCl (Oxycodone Immediate Release Tab) 5 mg PO Q6 PRN PRN Reason: Pain, moderate (4-7) Last Admin: 10/14/18 03:06 Dose: 5 mg Pantoprazole Sodium (Protonix Ec Tab) 40 mg PO DAILY [facility] Last Admin: 10/13/18 09:00 Dose: 40 mg Simethicone (Mylicon Chew Tab) 80 mg PO Q8 PRN PRN Reason: Flatulence Last Admin: 10/14/18 04:32 Dose: 80 mg - Labs Labs: 10/14/18 07:45 10/14/18 07:45
[2018-10-14] MEDS: Potassium Ch 20mEq in D5-1/2NS 1,000 ML IV SCH ×2 (16:53→23:33)
--- NOTE | 2018-10-14 20:04 | PN ---
DATE: 10/14/2018 ENDOCRINOLOGY FOLLOWUP NOTE LOCATION: Room 651. SUBJECTIVE: This is a 73-year-old female with recent hyperthyroidism, started on medical therapy and tolerating the aforementioned fairly well at this time. She also has had persistent sinus tachycardia and is improving clinically and hemodynamically as noted thereof. LABORATORY DATA: Her latest chemistry showed a BUN of 5, sodium 136, potassium 3.8, chloride 96, CO2 of 29, glucose 117 and creatinine 0.6. Her thyroid studies showed a T4 of 11.3 with a free T4 of 1.45 and a TSH of 0.26. PLAN: So at this time, we will continue the medical therapy given at a higher dose of Tapazole at 10 mg b.i.d. after meals as ordered. We will titrate incrementally as indicated to optimize metabolic control. We are also awaiting the thyroid antibodies which will confirm and/or indicate the presence of underlying thyroid autoimmunity. We will obtain serial chemistries and supplement accordingly needed. We will follow. Marci Robertson MD
--- NOTE | 2018-10-14 21:39 | CP.PCM.PN ---
Subjective - Date & Time of Evaluation Date of Evaluation: 10/14/18 Time of Evaluation: 21:39 - Subjective Subjective: pt doing well. no f./c, n/v/d. bw nad surgical notes reviewed. bleeding from wound noted-scant amt. Objective - Vital Signs/Intake and Output Vital Signs (last 24 hours): Temp Pulse Resp BP Pulse Ox 98.4 F 97 H 18 124/76 97 10/14/18 16:25 10/14/18 16:25 10/14/18 16:25 10/14/18 16:25 10/14/18 16:25 - Medications Medications: Current Medications Atorvastatin Calcium (Lipitor) 40 mg PO HS [facility] Last Admin: 10/14/18 21:04 Dose: 40 mg Bacitracin (Bacitracin Oint) 1 applic TOP BID [facility] Last Admin: 10/14/18 16:53 Dose: 1 applic Enoxaparin Sodium (Lovenox) 40 mg SC DAILY [facility]; Protocol Last Admin: 10/14/18 09:32 Dose: 40 mg Fluticasone Propionate (Flonase) 1 spr WILEY DAILY [facility] Last Admin: 10/14/18 09:32 Dose: 1 spr Hydrochlorothiazide (Microzide) 12.5 mg PO DAILY [facility] Last Admin: 10/14/18 09:32 Dose: 12.5 mg Potassium Chloride/Dextrose/Sod Cl (Potassium Chl 20 Meq In D5-1/2ns) 1,000 mls @ 100 mls/hr IV .Q10H [facility] Last Admin: 10/14/18 16:53 Dose: 100 mls/hr Loratadine (Claritin) 10 mg PO DAILY [facility] Last Admin: 10/14/18 09:32 Dose: 10 mg Methimazole (Tapazole) 10 mg PO BID [facility] Last Admin: 10/14/18 16:54 Dose: 10 mg Metoprolol Succinate (Toprol Xl) 25 mg PO DAILY [facility] Last Admin: 10/14/18 09:33 Dose: 25 mg Montelukast Sodium (Singulair) 10 mg PO HS [facility] Last Admin: 10/14/18 21:04 Dose: 10 mg Ondansetron HCl (Zofran Inj) 4 mg IVP Q6 PRN PRN Reason: Nausea/Vomiting Last Admin: 10/12/18 21:54 Dose: 4 mg Oxycodone HCl (Oxycodone Immediate Release Tab) 5 mg PO Q6 PRN PRN Reason: Pain, moderate (4-7) Last Admin: 10/14/18 11:38 Dose: 5 mg Pantoprazole Sodium (Protonix Ec Tab) 40 mg PO DAILY [facility] Last Admin: 10/14/18 09:33 Dose: 40 mg Simethicone (Mylicon Chew Tab) 80 mg PO Q8 PRN PRN Reason: Flatulence Last Admin: 10/14/18 21:04 Dose: 80 mg - Labs Labs: 10/14/18 07:45 10/14/18 07:45 - Constitutional Appears: Well, Non-toxic, No Acute Distress - Head Exam Head Exam: ATRAUMATIC, NORMAL INSPECTION, NORMOCEPHALIC - Eye Exam Eye Exam: EOMI, Normal appearance, PERRL Pupil Exam: NORMAL ACCOMODATION, PERRL - ENT Exam ENT Exam: Mucous Membranes Moist, Normal Exam - Neck Exam Neck Exam: Full ROM, Normal Inspection. absent: Lymphadenopathy - Respiratory Exam Respiratory Exam: Clear to Ausculation Bilateral, NORMAL BREATHING PATTERN - Cardiovascular Exam Cardiovascular Exam: REGULAR RHYTHM, RRR, +S1, +S2. absent: Murmur - GI/Abdominal Exam GI & Abdominal Exam: Soft, Normal Bowel Sounds. absent: Tenderness Additional comments: scant blooding dc - Extremities Exam Extremities Exam: Full ROM, Normal Capillary Refill, Normal Inspection. absent: Joint Swelling, Pedal Edema - Back Exam Back Exam: NORMAL INSPECTION - Neurological Exam Neurological Exam: Alert, Awake, CN II-XII Intact, Normal Gait, Oriented x3 - Psychiatric Exam Psychiatric exam: Normal Affect, Normal Mood - Skin Skin Exam: Dry, Intact, Normal Color, Warm Assessment and Plan (1) Colon cancer Assessment & Plan: outpt heme/onc Status: Acute (2) DVT prophylaxis Assessment & Plan: scd nad ae hose lovenox Status: Acute (3) S/P colon resection Assessment & Plan: pain control surgery ivf scant bleeding noted, surgical team aware Status: Acute
[2018-10-15] MEDS: Potassium Ch 20mEq in D5-1/2NS 1,000 ML IV SCH ×2 (02:07→16:46)
[2018-10-15 06:34] LABS: HEMOGLOBIN 10.2 g/dL (12.0-16.0); MEAN CELL VOLUME 87.9 fl (81.0-99.0); MEAN CORPUSCULAR HEMOGLOBIN 29.7 pg (27.0-31.0); MEAN CORPUSCULAR HGB CONC 33.8 g/dL (33.0-37.0); RBC 3.45 Mil/uL (3.80-5.20); RED CELL DISTRIBUTION WIDTH 13.1 % (11.5-14.5); WHITE BLOOD COUNT 10.1 K/uL (4.8-10.8)
[2018-10-15 06:42] LABS: BLOOD UREA NITROGEN 4 mg/dl (7-17); CALCIUM 8.6 mg/dL (8.4-10.2); GFR NON-AFRICAN AMERICAN > 60
[2018-10-15] MEDS: Bacitracin OINT 15GM TOP SCH ×2 (08:54→17:05)
[2018-10-15] MEDS: Simethicone 80 mg Chewtab PO PRN ×2 (08:58→17:05)
[2018-10-15] MEDS: Pantoprazole 40 mg EC Tab PO SCH (08:59)
[2018-10-15] MEDS: Metoprolol Succinate 25 mg XL Tab PO SCH (08:59)
[2018-10-15] MEDS: Enoxaparin 40 mg Syringe SC SCH (09:00)
--- NOTE | 2018-10-15 09:35 | CP.PCM.PN ---
Subjective - Date & Time of Evaluation Date of Evaluation: 10/15/18 Time of Evaluation: 09:34 - Subjective Subjective: pt doing well, less pain. no f/c, n/v/d. vs reviewed.scant dc from wound last night. none at present. Objective - Vital Signs/Intake and Output Vital Signs (last 24 hours): Temp Pulse Resp BP Pulse Ox 97.5 F L 101 H 20 113/70 96 10/15/18 08:13 10/15/18 08:59 10/15/18 08:13 10/15/18 08:59 10/15/18 08:13 - Medications Medications: Current Medications Atorvastatin Calcium (Lipitor) 40 mg PO HS [facility] Last Admin: 10/14/18 21:04 Dose: 40 mg Bacitracin (Bacitracin Oint) 1 applic TOP BID [facility] Last Admin: 10/15/18 08:54 Dose: 1 applic Enoxaparin Sodium (Lovenox) 40 mg SC DAILY [facility]; Protocol Last Admin: 10/15/18 09:00 Dose: 40 mg Fluticasone Propionate (Flonase) 1 spr WILEY DAILY [facility] Last Admin: 10/15/18 08:58 Dose: 1 spr Hydrochlorothiazide (Microzide) 12.5 mg PO DAILY [facility] Last Admin: 10/15/18 08:59 Dose: 12.5 mg Potassium Chloride/Dextrose/Sod Cl (Potassium Chl 20 Meq In D5-1/2ns) 1,000 mls @ 100 mls/hr IV .Q10H [facility] Last Admin: 10/15/18 02:07 Dose: 100 mls/hr Loratadine (Claritin) 10 mg PO DAILY [facility] Last Admin: 10/15/18 08:59 Dose: 10 mg Methimazole (Tapazole) 10 mg PO BID [facility] Last Admin: 10/15/18 09:00 Dose: 10 mg Metoprolol Succinate (Toprol Xl) 25 mg PO DAILY [facility] Last Admin: 10/15/18 08:59 Dose: 25 mg Montelukast Sodium (Singulair) 10 mg PO HS [facility] Last Admin: 10/14/18 21:04 Dose: 10 mg Ondansetron HCl (Zofran Inj) 4 mg IVP Q6 PRN PRN Reason: Nausea/Vomiting Last Admin: 10/12/18 21:54 Dose: 4 mg Oxycodone HCl (Oxycodone Immediate Release Tab) 5 mg PO Q6 PRN PRN Reason: Pain, moderate (4-7) Last Admin: 10/14/18 22:17 Dose: 5 mg Pantoprazole Sodium (Protonix Ec Tab) 40 mg PO DAILY [facility] Last Admin: 10/15/18 08:59 Dose: 40 mg Simethicone (Mylicon Chew Tab) 80 mg PO Q8 PRN PRN Reason: Flatulence Last Admin: 10/15/18 08:58 Dose: 80 mg - Labs Labs: 10/15/18 05:35 10/15/18 05:35 - Constitutional Appears: Well, Non-toxic, No Acute Distress - Head Exam Head Exam: ATRAUMATIC, NORMAL INSPECTION, NORMOCEPHALIC - Eye Exam Eye Exam: EOMI, Normal appearance, PERRL Pupil Exam: NORMAL ACCOMODATION, PERRL - ENT Exam ENT Exam: Mucous Membranes Moist, Normal Exam - Neck Exam Neck Exam: Full ROM, Normal Inspection. absent: Lymphadenopathy - Respiratory Exam Respiratory Exam: Clear to Ausculation Bilateral, NORMAL BREATHING PATTERN - Cardiovascular Exam Cardiovascular Exam: REGULAR RHYTHM, RRR, +S1, +S2. absent: Murmur - GI/Abdominal Exam GI & Abdominal Exam: Soft, Normal Bowel Sounds. absent: Tenderness - Extremities Exam Extremities Exam: Full ROM, Normal Capillary Refill, Normal Inspection. absent: Joint Swelling, Pedal Edema - Back Exam Back Exam: NORMAL INSPECTION - Neurological Exam Neurological Exam: Alert, Awake, CN II-XII Intact, Normal Gait, Oriented x3 - Psychiatric Exam Psychiatric exam: Normal Affect, Normal Mood - Skin Skin Exam: Dry, Intact, Normal Color, Warm Assessment and Plan (1) Colon cancer Assessment & Plan: outpt heme/onc, path pending Status: Acute (2) DVT prophylaxis Assessment & Plan: scd nad aehose lovneox Status: Acute (3) S/P colon resection Assessment & Plan: pain control cld, po as juliette surgery dc as per surgery Status: Acute (4) Tachycardia Assessment & Plan: appears to beimproving cont to control pain/fever Status: Acute
--- NOTE | 2018-10-15 10:03 | CP.PCM.PN ---
<Abraham Mike - Last Filed: 10/15/18 11:51> Subjective - Date & Time of Evaluation Date of Evaluation: 10/15/18 Time of Evaluation: 10:01 - Subjective Subjective: General Surgery Progress Note for Dr. Haque This 73F was seen and examined this AM at bedside. She reports one small BM yesterday, denies flatus nausea or vomiting. Denies apetite. Denies any fevers or chills overnight. Reports drainage from the wound. Objective - Vital Signs/Intake and Output Vital Signs (last 24 hours): Temp Pulse Resp BP Pulse Ox 97.5 F L 101 H 20 113/70 96 10/15/18 08:13 10/15/18 08:59 10/15/18 08:13 10/15/18 08:59 10/15/18 08:13 - Medications Medications: Current Medications Atorvastatin Calcium (Lipitor) 40 mg PO HS [facility] Last Admin: 10/14/18 21:04 Dose: 40 mg Bacitracin (Bacitracin Oint) 1 applic TOP BID [facility] Last Admin: 10/15/18 08:54 Dose: 1 applic Enoxaparin Sodium (Lovenox) 40 mg SC DAILY [facility]; Protocol Last Admin: 10/15/18 09:00 Dose: 40 mg Fluticasone Propionate (Flonase) 1 spr WILEY DAILY [facility] Last Admin: 10/15/18 08:58 Dose: 1 spr Hydrochlorothiazide (Microzide) 12.5 mg PO DAILY [facility] Last Admin: 10/15/18 08:59 Dose: 12.5 mg Potassium Chloride/Dextrose/Sod Cl (Potassium Chl 20 Meq In D5-1/2ns) 1,000 mls @ 100 mls/hr IV .Q10H [facility] Last Admin: 10/15/18 02:07 Dose: 100 mls/hr Loratadine (Claritin) 10 mg PO DAILY [facility] Last Admin: 10/15/18 08:59 Dose: 10 mg Methimazole (Tapazole) 10 mg PO BID [facility] Last Admin: 10/15/18 09:00 Dose: 10 mg Metoprolol Succinate (Toprol Xl) 25 mg PO DAILY [facility] Last Admin: 10/15/18 08:59 Dose: 25 mg Montelukast Sodium (Singulair) 10 mg PO HS [facility] Last Admin: 10/14/18 21:04 Dose: 10 mg Ondansetron HCl (Zofran Inj) 4 mg IVP Q6 PRN PRN Reason: Nausea/Vomiting Last Admin: 10/12/18 21:54 Dose: 4 mg Oxycodone HCl (Oxycodone Immediate Release Tab) 5 mg PO Q6 PRN PRN Reason: Pain, moderate (4-7) Last Admin: 10/14/18 22:17 Dose: 5 mg Pantoprazole Sodium (Protonix Ec Tab) 40 mg PO DAILY [facility] Last Admin: 10/15/18 08:59 Dose: 40 mg Simethicone (Mylicon Chew Tab) 80 mg PO Q8 PRN PRN Reason: Flatulence Last Admin: 10/15/18 08:58 Dose: 80 mg - Labs Labs: 10/15/18 05:35 10/15/18 05:35 - Constitutional Appears: Non-toxic, In Acute Distress - Head Exam Head Exam: ATRAUMATIC, NORMOCEPHALIC - Eye Exam Eye Exam: EOMI, Normal appearance - ENT Exam ENT Exam: Mucous Membranes Moist - Respiratory Exam Respiratory Exam: NORMAL BREATHING PATTERN - Cardiovascular Exam Cardiovascular Exam: REGULAR RHYTHM - GI/Abdominal Exam GI & Abdominal Exam: Distended, Soft. absent: Guarding, Rigid, Tenderness Additional comments: Right periinscisional erythema, with clear oily fluid expressed. - Neurological Exam Neurological Exam: Alert, Awake Assessment and Plan - Assessment and Plan (Free Text) Assessment: 73 y.o. female s/p right hemicolectomy advance diet to regular Physical therapy eval incentive spirometer followup social work Discharge planning Further recs by Dr. Garland Mike PGY3 <James Haque - Last Filed: 10/15/18 12:08> Subjective - Date & Time of Evaluation Time of Evaluation: 10:30 - Subjective Subjective: Patient was seen and examined at the bedside. Agree with resident's note above. Passing flatus and having bowel movements, tolerating clear liquid diet. Objective - Vital Signs/Intake and Output Vital Signs (last 24 hours): Temp Pulse Resp BP Pulse Ox 97.5 F L 101 H 20 113/70 96 10/15/18 08:13 10/15/18 08:59 10/15/18 08:13 10/15/18 08:59 10/15/18 08:13 - Medications Medications: Current Medications Atorvastatin Calcium (Lipitor) 40 mg PO HS [facility] Last Admin: 10/14/18 21:04 Dose: 40 mg Bacitracin (Bacitracin Oint) 1 applic TOP BID [facility] Last Admin: 10/15/18 08:54 Dose: 1 applic Enoxaparin Sodium (Lovenox) 40 mg SC DAILY [facility]; Protocol Last Admin: 10/15/18 09:00 Dose: 40 mg Fluticasone Propionate (Flonase) 1 spr IWLEY DAILY [facility] Last Admin: 10/15/18 08:58 Dose: 1 spr Hydrochlorothiazide (Microzide) 12.5 mg PO DAILY [facility] Last Admin: 10/15/18 08:59 Dose: 12.5 mg Potassium Chloride/Dextrose/Sod Cl (Potassium Chl 20 Meq In D5-1/2ns) 1,000 mls @ 100 mls/hr IV .Q10H [facility] Last Admin: 10/15/18 02:07 Dose: 100 mls/hr Loratadine (Claritin) 10 mg PO DAILY [facility] Last Admin: 10/15/18 08:59 Dose: 10 mg Methimazole (Tapazole) 10 mg PO BID [facility] Last Admin: 10/15/18 09:00 Dose: 10 mg Metoprolol Succinate (Toprol Xl) 25 mg PO DAILY [facility] Last Admin: 10/15/18 08:59 Dose: 25 mg Montelukast Sodium (Singulair) 10 mg PO HS [facility] Last Admin: 10/14/18 21:04 Dose: 10 mg Ondansetron HCl (Zofran Inj) 4 mg IVP Q6 PRN PRN Reason: Nausea/Vomiting Last Admin: 10/12/18 21:54 Dose: 4 mg Oxycodone HCl (Oxycodone Immediate Release Tab) 5 mg PO Q6 PRN PRN Reason: Pain, moderate (4-7) Last Admin: 10/14/18 22:17 Dose: 5 mg Pantoprazole Sodium (Protonix Ec Tab) 40 mg PO DAILY [facility] Last Admin: 10/15/18 08:59 Dose: 40 mg Simethicone (Mylicon Chew Tab) 80 mg PO Q8 PRN PRN Reason: Flatulence Last Admin: 10/15/18 08:58 Dose: 80 mg - Labs Labs: 10/15/18 05:35 10/15/18 05:35 - GI/Abdominal Exam Additional comments: soft, mild arnoldo-incisional tenderness, very minimally distended, BS+, no rebound, no guarding, incision clean, minimal erythema, minimal serous drainage, hiwot in place Assessment and Plan - Assessment and Plan (Free Text) Plan: - start regular diet - Pain control - Insentive spirometry - Continue Zosyn - DVT ppx - out of bed - physical therapy - oncology consultation - Repeat labs in am
[2018-10-15] MEDS: Piperacillin/Tazobact 3.375 GM in Sodium Chloride 0.9% 100 ML IVPB SCH ×2 (16:46→22:16)
--- NOTE | 2018-10-15 19:28 | PN ---
DATE: 10/15/2018 ENDOCRINOLOGY FOLLOWUP NOTE LOCATION: Room 651. SUBJECTIVE: This is a 73-year-old female with recent overt hyperthyroidism, currently tolerating the medical therapy as given. She remains clinically and biochemically hyperthyroid as noted thereof. LABORATORY DATA: Repeat thyroid study showed a T4 of 11.3 mcg/dL with a TSH of 0.26 and a free T4 of 1.45. Her chemistry showed a BUN of 4, sodium 135, potassium 3.9, chloride 97, CO2 of , glucose 114, creatinine 0.6. PLAN: So at this time, we will continue the medical therapy for overt hyperthyroidism with Tapazole given at a higher dosing of 10 mg b.i.d. after meals as ordered. We will obtain serial chemistries and supplement accordingly needed. We will follow. Marci Robertson MD
[2018-10-15] MEDS: oxyCODONE 5 mg Immediate Release Tab PO PRN (22:16)
[2018-10-16] MEDS: Piperacillin/Tazobact 3.375 GM in Sodium Chloride 0.9% 100 ML IVPB SCH ×4 (03:58→21:26)
[2018-10-16 06:41] LABS: BASO # 0.1 K/uL (0.0-0.2); BASO % 0.6 % (0.0-2.0); EOS # 0.3 K/uL (0.0-0.7); EOS % 3.3 % (0.0-4.0); HEMOGLOBIN 10.5 g/dL (12.0-16.0); LYMPH # 1.4 K/uL (1.0-4.3); LYMPH % 15.2 % (20.0-40.0); MEAN CELL VOLUME 87.3 fl (81.0-99.0); MEAN CORPUSCULAR HEMOGLOBIN 29.5 pg (27.0-31.0); MEAN CORPUSCULAR HGB CONC 33.7 g/dL (33.0-37.0); MONO # 1.1 K/uL (0.0-0.8); NEUT # 6.2 K/uL (1.8-7.0); NEUT % 68.9 % (50.0-75.0); RBC 3.57 Mil/uL (3.80-5.20); RED CELL DISTRIBUTION WIDTH 13.3 % (11.5-14.5)
[2018-10-16 06:51] LABS: BLOOD UREA NITROGEN 9 mg/dl (7-17); CALCIUM 8.6 mg/dL (8.4-10.2); GFR NON-AFRICAN AMERICAN > 60
--- NOTE | 2018-10-16 07:25 | CP.PCM.PN ---
<AsadSalvatore aguilera - Last Filed: 10/16/18 07:30> Subjective - Date & Time of Evaluation Date of Evaluation: 10/16/18 Time of Evaluation: 07:23 - Subjective Subjective: General Surgery Progress Note for Dr. Haque 73 y/o female was seen and examined this AM at bedside. Passing flatus and having bowel movements, tolerating clear liquid diet. Denies any fevers or chills overnight. Reports drainage from the wound. Objective - Vital Signs/Intake and Output Vital Signs (last 24 hours): Temp Pulse Resp BP Pulse Ox 98.5 F 98 H 20 113/68 96 10/15/18 23:38 10/15/18 23:38 10/15/18 23:38 10/15/18 23:38 10/15/18 23:38 - Medications Medications: Current Medications Atorvastatin Calcium (Lipitor) 40 mg PO HS [facility] Last Admin: 10/15/18 22:16 Dose: 40 mg Bacitracin (Bacitracin Oint) 1 applic TOP BID [facility] Last Admin: 10/15/18 17:05 Dose: 1 applic Enoxaparin Sodium (Lovenox) 40 mg SC DAILY [facility]; Protocol Last Admin: 10/15/18 09:00 Dose: 40 mg Fluticasone Propionate (Flonase) 1 spr WILEY DAILY [facility] Last Admin: 10/15/18 08:58 Dose: 1 spr Hydrochlorothiazide (Microzide) 12.5 mg PO DAILY [facility] Last Admin: 10/15/18 08:59 Dose: 12.5 mg Piperacillin Sod/Tazobactam (Sod 3.375 gm/ Sodium Chloride) 100 mls @ 100 mls/hr IVPB Q6 [facility]; Protocol Last Admin: 10/16/18 03:58 Dose: 100 mls/hr Loratadine (Claritin) 10 mg PO DAILY [facility] Last Admin: 10/15/18 08:59 Dose: 10 mg Methimazole (Tapazole) 10 mg PO BID [facility] Last Admin: 10/15/18 17:05 Dose: 10 mg Metoprolol Succinate (Toprol Xl) 25 mg PO DAILY [facility] Last Admin: 10/15/18 08:59 Dose: 25 mg Montelukast Sodium (Singulair) 10 mg PO HS [facility] Last Admin: 10/15/18 22:16 Dose: 10 mg Ondansetron HCl (Zofran Inj) 4 mg IVP Q6 PRN PRN Reason: Nausea/Vomiting Last Admin: 10/12/18 21:54 Dose: 4 mg Oxycodone HCl (Oxycodone Immediate Release Tab) 5 mg PO Q6 PRN PRN Reason: Pain, moderate (4-7) Last Admin: 10/15/18 22:16 Dose: 5 mg Pantoprazole Sodium (Protonix Ec Tab) 40 mg PO DAILY [facility] Last Admin: 10/15/18 08:59 Dose: 40 mg Simethicone (Mylicon Chew Tab) 80 mg PO Q8 PRN PRN Reason: Flatulence Last Admin: 10/15/18 17:05 Dose: 80 mg - Labs Labs: 10/16/18 05:15 10/16/18 05:15 - Constitutional Appears: Non-toxic, No Acute Distress - Head Exam Head Exam: ATRAUMATIC, NORMOCEPHALIC - Eye Exam Eye Exam: EOMI, Normal appearance - ENT Exam ENT Exam: Mucous Membranes Moist - Respiratory Exam Respiratory Exam: NORMAL BREATHING PATTERN. absent: Accessory Muscle Use, Respiratory Distress - GI/Abdominal Exam GI & Abdominal Exam: Distended, Soft Additional comments: soft, mild arnoldo-incisional tenderness, very minimally distended, BS+, no rebound, no guarding, incision clean, minimal erythema, minimal serous drainage, hiwot in place - Neurological Exam Neurological Exam: Alert, Awake Assessment and Plan - Assessment and Plan (Free Text) Assessment: 73 y.o. female s/p right hemicolectomy Plan: Start regular diet Pain control Incentive spirometry Continue Zosyn DVT ppx Out of bed physical therapy oncology consultation further recs per Dr. Garland Kamara, PGY1 <James Haque - Last Filed: 10/16/18 13:34> Subjective - Date & Time of Evaluation Time of Evaluation: 13:00 - Subjective Subjective: Patient was seen and examined at the bedside. Agree with resident's note above. Objective - Vital Signs/Intake and Output Vital Signs (last 24 hours): Temp Pulse Resp BP Pulse Ox 98.2 F 68 20 115/72 96 10/16/18 08:15 10/16/18 13:18 10/16/18 08:15 10/16/18 09:03 10/16/18 13:18 - Medications Medications: Current Medications Atorvastatin Calcium (Lipitor) 40 mg PO HS [facility] Last Admin: 10/15/18 22:16 Dose: 40 mg Bacitracin (Bacitracin Oint) 1 applic TOP BID [facility] Last Admin: 10/16/18 08:59 Dose: 1 applic Enoxaparin Sodium (Lovenox) 40 mg SC DAILY [facility]; Protocol Last Admin: 10/16/18 09:00 Dose: 40 mg Fluticasone Propionate (Flonase) 1 spr WILEY DAILY [facility] Last Admin: 10/16/18 09:00 Dose: 1 spr Hydrochlorothiazide (Microzide) 12.5 mg PO DAILY [facility] Last Admin: 10/16/18 09:02 Dose: 12.5 mg Piperacillin Sod/Tazobactam (Sod 3.375 gm/ Sodium Chloride) 100 mls @ 100 mls/hr IVPB Q6 [facility]; Protocol Last Admin: 10/16/18 09:03 Dose: 100 mls/hr Loratadine (Claritin) 10 mg PO DAILY [facility] Last Admin: 10/16/18 09:02 Dose: 10 mg Methimazole (Tapazole) 10 mg PO BID [facility] Last Admin: 10/16/18 09:03 Dose: 10 mg Metoprolol Succinate (Toprol Xl) 25 mg PO DAILY [facility] Last Admin: 10/16/18 09:03 Dose: 25 mg Montelukast Sodium (Singulair) 10 mg PO [facility] Last Admin: 10/15/18 22:16 Dose: 10 mg Ondansetron HCl (Zofran Inj) 4 mg IVP Q6 PRN PRN Reason: Nausea/Vomiting Last Admin: 10/12/18 21:54 Dose: 4 mg Oxycodone HCl (Oxycodone Immediate Release Tab) 5 mg PO Q6 PRN PRN Reason: Pain, moderate (4-7) Last Admin: 10/15/18 22:16 Dose: 5 mg Pantoprazole Sodium (Protonix Ec Tab) 40 mg PO DAILY [facility] Last Admin: 10/16/18 09:03 Dose: 40 mg Simethicone (Mylicon Chew Tab) 80 mg PO Q8 PRN PRN Reason: Flatulence Last Admin: 10/15/18 17:05 Dose: 80 mg - Labs Labs: 10/16/18 05:15 10/16/18 05:15 Assessment and Plan - Assessment and Plan (Free Text) Plan: - discharge planning - Awaiting placement to rehab - Out of bed and ambulate - Repeat labs in am
[2018-10-16] MEDS ORDERED: Potassium Chloride 20 mEq/15 ml LIQ UD PO ONE (07:48)
[2018-10-16] MEDS: Bacitracin OINT 15GM TOP SCH ×2 (08:59→16:40)
[2018-10-16] MEDS: Enoxaparin 40 mg Syringe SC SCH (09:00)
[2018-10-16] MEDS: Pantoprazole 40 mg EC Tab PO SCH (09:03)
[2018-10-16] MEDS: Metoprolol Succinate 25 mg XL Tab PO SCH (09:03)
--- NOTE | 2018-10-16 09:08 | CP.PCM.CON ---
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 she underwent a right hemicolectomy, on 10/06/18 with a right colostomy.. Tumor was a moderatekly differentiated adenocarcinoma, with associated tattoo,ileocecalvalve and cecum. Tunor invades through the lmuscularis propria, into the pericolorectal tissue,.The resection margins were negative for tumor.lymphovasculer invasion not seen. / lymphnodes were positivr for tumor. The cecum did not show any malignancy. Pt has a past h/o hyperthyroidism, diverticulitis.hypercholesterolemia. She does not smoke or drink No family h/o colon carcinoma Past Patient History - Past Medical History & Family History Past Medical History?: Yes - Past Social History Smoking Status: Never Smoked - CARDIAC Hx Hypercholesterolemia: Yes Hx Hypertension: Yes - PULMONARY Hx Respiratory Disorders: No - NEUROLOGICAL Hx Neurological Disorder: No - HEENT Hx HEENT Problems: No - RENAL Hx Chronic Kidney Disease: No - ENDOCRINE/METABOLIC Hx Endocrine Disorders: No - HEMATOLOGICAL/ONCOLOGICAL Hx Blood Disorders: No Hx AIDS: No - INTEGUMENTARY Hx Dermatological Problems: No - MUSCULOSKELETAL/RHEUMATOLOGICAL Hx Musculoskeletal Disorders: Yes Hx Arthritis: Yes (knees) Hx Osteoporosis: Yes - GASTROINTESTINAL Hx Gastrointestinal Disorders: Yes Hx Gastritis: Yes Hx Gastroesophageal Reflux: Yes - GENITOURINARY/GYNECOLOGICAL Hx Genitourinary Disorders: No - PSYCHIATRIC Hx Psychophysiologic Disorder: No Hx Emotional Abuse: No Hx Physical Abuse: No Hx Substance Use: No - SURGICAL HISTORY Hx Surgeries: Yes Hx Appendectomy: Yes Hx Breast Biopsy: Yes (right) - ANESTHESIA Hx Anesthesia: Yes Hx Anesthesia Reactions: No Hx Malignant Hyperthermia: No Has any member of the family had a problem w/ anesthesia?: No Meds Allergies/Adverse Reactions: Allergies Allergy/AdvReac Type Severity Reaction Status Date / Time pollen extracts Allergy Mild ITCHING Verified 12/12/15 11:41 environmental Allergy CONGESTION Uncoded 09/30/18 10:16 - Medications Medications: Current Medications Atorvastatin Calcium (Lipitor) 40 mg PO HS [facility] Last Admin: 10/15/18 22:16 Dose: 40 mg Bacitracin (Bacitracin Oint) 1 applic TOP BID [facility] Last Admin: 10/16/18 08:59 Dose: 1 applic Enoxaparin Sodium (Lovenox) 40 mg SC DAILY [facility]; Protocol Last Admin: 10/16/18 09:00 Dose: 40 mg Fluticasone Propionate (Flonase) 1 spr WILEY DAILY [facility] Last Admin: 10/16/18 09:00 Dose: 1 spr Hydrochlorothiazide (Microzide) 12.5 mg PO DAILY [facility] Last Admin: 10/16/18 09:02 Dose: 12.5 mg Piperacillin Sod/Tazobactam (Sod 3.375 gm/ Sodium Chloride) 100 mls @ 100 mls/hr IVPB Q6 [facility]; Protocol Last Admin: 10/16/18 09:03 Dose: 100 mls/hr Loratadine (Claritin) 10 mg PO DAILY [facility] Last Admin: 10/16/18 09:02 Dose: 10 mg Methimazole (Tapazole) 10 mg PO BID [facility] Last Admin: 10/16/18 09:03 Dose: 10 mg Metoprolol Succinate (Toprol Xl) 25 mg PO DAILY [facility] Last Admin: 10/16/18 09:03 Dose: 25 mg Montelukast Sodium (Singulair) 10 mg PO HS [facility] Last Admin: 10/15/18 22:16 Dose: 10 mg Ondansetron HCl (Zofran Inj) 4 mg IVP Q6 PRN PRN Reason: Nausea/Vomiting Last Admin: 10/12/18 21:54 Dose: 4 mg Oxycodone HCl (Oxycodone Immediate Release Tab) 5 mg PO Q6 PRN PRN Reason: Pain, moderate (4-7) Last Admin: 10/15/18 22:16 Dose: 5 mg Pantoprazole Sodium (Protonix Ec Tab) 40 mg PO DAILY [facility] Last Admin: 10/16/18 09:03 Dose: 40 mg Simethicone (Mylicon Chew Tab) 80 mg PO Q8 PRN PRN Reason: Flatulence Last Admin: 10/15/18 17:05 Dose: 80 mg Physical Exam - Additional Findings Additional findings: Physical exam; alert, well oriented in no acute distress. neck; Supple, no adenopathy Chest; clear, no rales or rhonchi] Heart; RSR,NO murmur Abd; right sided colostomy healing well. Results - Vital Signs Recent Vital Signs: Last Vital Signs Temp 98.2 F 10/16/18 08:15 Pulse 98 H 10/16/18 09:03 Resp 20 10/16/18 08:15 BP 115/72 10/16/18 09:03 Pulse Ox 95 10/16/18 08:15 - Labs Result Diagrams: 10/16/18 05:15 10/16/18 05:15 Labs: Laboratory Results - last 24 hr 10/16/18 10/16/18 05:15 05:15 WBC 9.0 RBC 3.57 L Hgb 10.5 L Hct 31.1 L MCV 87.3 MCH 29.5 MCHC 33.7 RDW 13.3 Plt Count 522 H MPV 7.0 L Neut % (Auto) 68.9 Lymph % (Auto) 15.2 L Calhoun % (Auto) 12.0 H Eos % (Auto) 3.3 Baso % (Auto) 0.6 Neut # (Auto) 6.2 Lymph # (Auto) 1.4 Calhoun # (Auto) 1.1 H Eos # (Auto) 0.3 Baso # (Auto) 0.1 Sodium 135 Potassium 3.6 Chloride 97 L Carbon Dioxide 29 Anion Gap 13 BUN 9 Creatinine 0.7 Est GFR ( Amer) > 60 Est GFR (Non-Af Amer) > 60 Random Glucose 98 Calcium 8.6 Assessment & Plan - Assessment and Plan (Free Text) Assessment: impression; Stage 2 B colon cancer with 3/17 lymph node involvement.She will need chemo. will start flurouracil and leucovorin on November 05 - Date & Time Date: 10/16/18 Time: 09:34
--- NOTE | 2018-10-16 20:44 | CP.PCM.PN ---
Subjective - Date & Time of Evaluation Date of Evaluation: 10/16/18 Time of Evaluation: 20:43 - Subjective Subjective: pt more comfortable today no fcnvd bw noted surgical notes reciewed pending insurance for britney Objective - Vital Signs/Intake and Output Vital Signs (last 24 hours): Temp Pulse Resp BP Pulse Ox 98.6 F 95 H 20 106/65 95 10/16/18 16:42 10/16/18 16:42 10/16/18 16:42 10/16/18 16:42 10/16/18 16:42 - Medications Medications: Current Medications Atorvastatin Calcium (Lipitor) 40 mg PO HS [facility] Last Admin: 10/15/18 22:16 Dose: 40 mg Bacitracin (Bacitracin Oint) 1 applic TOP BID [facility] Last Admin: 10/16/18 16:40 Dose: 1 applic Enoxaparin Sodium (Lovenox) 40 mg SC DAILY [facility]; Protocol Last Admin: 10/16/18 09:00 Dose: 40 mg Fluticasone Propionate (Flonase) 1 spr WILEY DAILY [facility] Last Admin: 10/16/18 09:00 Dose: 1 spr Hydrochlorothiazide (Microzide) 12.5 mg PO DAILY [facility] Last Admin: 10/16/18 09:02 Dose: 12.5 mg Piperacillin Sod/Tazobactam (Sod 3.375 gm/ Sodium Chloride) 100 mls @ 100 mls/hr IVPB Q6 [facility]; Protocol Last Admin: 10/16/18 16:40 Dose: 100 mls/hr Loratadine (Claritin) 10 mg PO DAILY [facility] Last Admin: 10/16/18 09:02 Dose: 10 mg Methimazole (Tapazole) 10 mg PO BID [facility] Last Admin: 10/16/18 16:41 Dose: 10 mg Metoprolol Succinate (Toprol Xl) 25 mg PO DAILY [facility] Last Admin: 10/16/18 09:03 Dose: 25 mg Montelukast Sodium (Singulair) 10 mg PO HS [facility] Last Admin: 10/15/18 22:16 Dose: 10 mg Ondansetron HCl (Zofran Inj) 4 mg IVP Q6 PRN PRN Reason: Nausea/Vomiting Last Admin: 10/12/18 21:54 Dose: 4 mg Oxycodone HCl (Oxycodone Immediate Release Tab) 5 mg PO Q6 PRN PRN Reason: Pain, moderate (4-7) Last Admin: 10/15/18 22:16 Dose: 5 mg Pantoprazole Sodium (Protonix Ec Tab) 40 mg PO DAILY [facility] Last Admin: 10/16/18 09:03 Dose: 40 mg Simethicone (Mylicon Chew Tab) 80 mg PO Q8 PRN PRN Reason: Flatulence Last Admin: 10/15/18 17:05 Dose: 80 mg - Labs Labs: 10/16/18 05:15 10/16/18 05:15 - Constitutional Appears: Well, Non-toxic, No Acute Distress - Head Exam Head Exam: ATRAUMATIC, NORMAL INSPECTION, NORMOCEPHALIC - Eye Exam Eye Exam: EOMI, Normal appearance, PERRL Pupil Exam: NORMAL ACCOMODATION, PERRL - ENT Exam ENT Exam: Mucous Membranes Moist, Normal Exam - Neck Exam Neck Exam: Full ROM, Normal Inspection. absent: Lymphadenopathy - Respiratory Exam Respiratory Exam: Clear to Ausculation Bilateral, NORMAL BREATHING PATTERN - Cardiovascular Exam Cardiovascular Exam: REGULAR RHYTHM, RRR, +S1, +S2. absent: Murmur - GI/Abdominal Exam GI & Abdominal Exam: Soft, Normal Bowel Sounds. absent: Tenderness - Rectal Exam Rectal Exam: NORMAL INSPECTION - Extremities Exam Extremities Exam: Full ROM, Normal Capillary Refill, Normal Inspection. absent: Joint Swelling, Pedal Edema - Back Exam Back Exam: NORMAL INSPECTION - Neurological Exam Neurological Exam: Alert, Awake, CN II-XII Intact, Normal Gait, Oriented x3 - Psychiatric Exam Psychiatric exam: Normal Affect, Normal Mood - Skin Skin Exam: Dry, Intact, Normal Color, Warm Assessment and Plan (1) Colon cancer Assessment & Plan: outpt heme/onc v damle in hospital Status: Acute (2) DVT prophylaxis Assessment & Plan: scd nad ae hose lovenox Status: Acute (3) S/P colon resection Assessment & Plan: pain control surgery anbx ?? britney Status: Acute (4) Tachycardia Assessment & Plan: appears to be resolved, will follow Status: Acute
[2018-10-16] MEDS: oxyCODONE 5 mg Immediate Release Tab PO PRN (21:24)
--- NOTE | 2018-10-17 00:51 | PN ---
DATE: 10/16/2018 ENDOCRINOLOGY FOLLOWUP NOTE LOCATION: Room 651. SUBJECTIVE: This is a 73-year-old female with overt hyperthyroidism noted historically, clinically, and biochemically and is tolerating the medical therapy with methimazole therapy as given. Her repeat thyroid study showed a T4 of 11.3 mcg/dL with a TSH of 0.26 and a free T4 of 1.45. Her chemistry showed a BUN of 9. Sodium 135, potassium 3.6, chloride 97, CO2 of 29, glucose 98, and creatinine 0.7. So at this time, we will continue the modified medical therapy with Tapazole given as 10 mg b.i.d. after meals as ordered. We will obtain serial chemistries and supplement accordingly as needed. We will also obtain serial thyroid studies and titrate those regimen accordingly. We will follow. Marci Robertson MD
[2018-10-17] MEDS: Piperacillin/Tazobact 3.375 GM in Sodium Chloride 0.9% 100 ML IVPB SCH ×4 (04:49→21:21)
--- NOTE | 2018-10-17 05:57 | CP.PCM.PN ---
<Mehul Burroughs - Last Filed: 10/17/18 07:31> Subjective - Date & Time of Evaluation Date of Evaluation: 10/17/18 Time of Evaluation: 07:31 - Subjective Subjective: General Surgery Note for Dr. Mai Patient seen and examined at bedside. No acute event overnight. Patient still reports mild incisional pain with drainage. Denies fever/chills or nausea/vomiting. She is tolerating her diet with ensures twice per day. She admits to passing flatus and having small BMs. Objective - Vital Signs/Intake and Output Vital Signs (last 24 hours): Temp Pulse Resp BP Pulse Ox 98.8 F 109 H 20 103/67 94 L 10/17/18 00:20 10/17/18 00:20 10/17/18 00:20 10/17/18 00:20 10/17/18 00:20 - Medications Medications: Current Medications Atorvastatin Calcium (Lipitor) 40 mg PO HS [facility] Last Admin: 10/16/18 21:26 Dose: 40 mg Bacitracin (Bacitracin Oint) 1 applic TOP BID [facility] Last Admin: 10/16/18 16:40 Dose: 1 applic Enoxaparin Sodium (Lovenox) 40 mg SC DAILY [facility]; Protocol Last Admin: 10/16/18 09:00 Dose: 40 mg Fluticasone Propionate (Flonase) 1 spr WILEY DAILY [facility] Last Admin: 10/16/18 09:00 Dose: 1 spr Hydrochlorothiazide (Microzide) 12.5 mg PO DAILY [facility] Last Admin: 10/16/18 09:02 Dose: 12.5 mg Piperacillin Sod/Tazobactam (Sod 3.375 gm/ Sodium Chloride) 100 mls @ 100 mls/hr IVPB Q6 [facility]; Protocol Last Admin: 10/17/18 04:49 Dose: 100 mls/hr Loratadine (Claritin) 10 mg PO DAILY [facility] Last Admin: 10/16/18 09:02 Dose: 10 mg Methimazole (Tapazole) 10 mg PO BID [facility] Last Admin: 10/16/18 16:41 Dose: 10 mg Metoprolol Succinate (Toprol Xl) 25 mg PO DAILY [facility] Last Admin: 10/16/18 09:03 Dose: 25 mg Montelukast Sodium (Singulair) 10 mg PO HS [facility] Last Admin: 10/16/18 21:26 Dose: 10 mg Ondansetron HCl (Zofran Inj) 4 mg IVP Q6 PRN PRN Reason: Nausea/Vomiting Last Admin: 10/12/18 21:54 Dose: 4 mg Oxycodone HCl (Oxycodone Immediate Release Tab) 5 mg PO Q6 PRN PRN Reason: Pain, moderate (4-7) Last Admin: 10/16/18 21:24 Dose: 5 mg Pantoprazole Sodium (Protonix Ec Tab) 40 mg PO DAILY [facility] Last Admin: 10/16/18 09:03 Dose: 40 mg Simethicone (Mylicon Chew Tab) 80 mg PO Q8 PRN PRN Reason: Flatulence Last Admin: 10/15/18 17:05 Dose: 80 mg - Labs Labs: 10/16/18 05:15 10/16/18 05:15 - Additional Findings Additional findings: - Constitutional Appears: Non-toxic, No Acute Distress - Head Exam Head Exam: ATRAUMATIC, NORMOCEPHALIC - Eye Exam Eye Exam: EOMI, Normal appearance - ENT Exam ENT Exam: Mucous Membranes Moist - Respiratory Exam Respiratory Exam: NORMAL BREATHING PATTERN. 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 Sergei Burroughs PGY2 <Enoch Mai - Last Filed: 10/17/18 12:20> Objective - Vital Signs/Intake and Output Vital Signs (last 24 hours): Temp Pulse Resp BP Pulse Ox 98.1 F 106 H 20 100/62 94 L 10/17/18 08:04 10/17/18 10:14 10/17/18 08:04 10/17/18 10:14 10/17/18 08:04 - Medications Medications: Current Medications Atorvastatin Calcium (Lipitor) 40 mg PO HS [facility] Last Admin: 10/16/18 21:26 Dose: 40 mg Bacitracin (Bacitracin Oint) 1 applic TOP BID [facility] Last Admin: 10/17/18 10:11 Dose: 1 applic Enoxaparin Sodium (Lovenox) 40 mg SC DAILY [facility]; Protocol Last Admin: 10/17/18 10:12 Dose: 40 mg Fluticasone Propionate (Flonase) 1 spr WILEY DAILY [facility] Last Admin: 10/17/18 10:12 Dose: 1 spr Hydrochlorothiazide (Microzide) 12.5 mg PO DAILY [facility] Last Admin: 10/17/18 10:13 Dose: 12.5 mg Piperacillin Sod/Tazobactam (Sod 3.375 gm/ Sodium Chloride) 100 mls @ 100 mls/hr IVPB Q6 [facility]; Protocol Last Admin: 10/17/18 10:14 Dose: 100 mls/hr Loratadine (Claritin) 10 mg PO DAILY [facility] Last Admin: 10/17/18 10:12 Dose: 10 mg Methimazole (Tapazole) 10 mg PO BID [facility] Last Admin: 10/17/18 10:13 Dose: 10 mg Metoprolol Succinate (Toprol Xl) 25 mg PO DAILY [facility] Last Admin: 10/17/18 10:14 Dose: 25 mg Montelukast Sodium (Singulair) 10 mg PO [facility] Last Admin: 10/16/18 21:26 Dose: 10 mg Ondansetron HCl (Zofran Inj) 4 mg IVP Q6 PRN PRN Reason: Nausea/Vomiting Last Admin: 10/12/18 21:54 Dose: 4 mg Oxycodone HCl (Oxycodone Immediate Release Tab) 5 mg PO Q6 PRN PRN Reason: Pain, moderate (4-7) Last Admin: 10/16/18 21:24 Dose: 5 mg Pantoprazole Sodium (Protonix Ec Tab) 40 mg PO DAILY [facility] Last Admin: 10/17/18 10:13 Dose: 40 mg Simethicone (Mylicon Chew Tab) 80 mg PO Q8 PRN PRN Reason: Flatulence Last Admin: 10/15/18 17:05 Dose: 80 mg - Labs Labs: 10/17/18 05:30 10/17/18 05:30 Assessment and Plan - Assessment and Plan (Free Text) Plan: wound improving, cont abx,
[2018-10-17 07:44] LABS: BASO # 0.1 K/uL (0.0-0.2); BASO % 0.7 % (0.0-2.0); EOS # 0.5 K/uL (0.0-0.7); EOS % 4.5 % (0.0-4.0); HEMOGLOBIN 10.8 g/dL (12.0-16.0); LYMPH % 19.2 % (20.0-40.0); MEAN CELL VOLUME 87.3 fl (81.0-99.0); MEAN CORPUSCULAR HGB CONC 33.2 g/dL (33.0-37.0); MEAN PLATELET VOLUME 7.2 fl (7.2-11.7); MONO # 0.9 K/uL (0.0-0.8); MONO % 8.9 % (0.0-10.0); NEUT % 66.7 % (50.0-75.0); NRBC % 0.1 % (0.0-0.0); RBC 3.71 Mil/uL (3.80-5.20); RED CELL DISTRIBUTION WIDTH 13.1 % (11.5-14.5); WHITE BLOOD COUNT 10.5 K/uL (4.8-10.8)
[2018-10-17 08:16] LABS: BLOOD UREA NITROGEN 16 mg/dl (7-17); CALCIUM 8.8 mg/dL (8.4-10.2); GFR NON-AFRICAN AMERICAN > 60
[2018-10-17] MEDS: Bacitracin OINT 15GM TOP SCH ×2 (10:11→16:26)
[2018-10-17] MEDS: Enoxaparin 40 mg Syringe SC SCH (10:12)
[2018-10-17] MEDS: Pantoprazole 40 mg EC Tab PO SCH (10:13)
[2018-10-17] MEDS: Metoprolol Succinate 25 mg XL Tab PO SCH (10:14)
--- NOTE | 2018-10-17 13:35 | PN ---
DATE: 10/17/2018 ENDO FOLLOWUP NOTE ROOM: 651 SUBJECTIVE: This is a 73-year-old female with recent overt hyperthyroidism noted both historically, clinically and biochemically and currently tolerating the medical therapy given for medical management accordingly. She remains clinically euthyroid at this time, and biochemically has overt hyperthyroidism as mentioned. Her oral intake is improving as noted with subsidence of the dizziness and lightheadedness as mentioned. Her chemistries today showed a BUN of 16, sodium 137, potassium 3.5, chloride 97, CO2 27, glucose 117 and creatinine 0.6. Her thyroid studies ordered for today are still pending and we will await confirmation thereof. So, for now, we will continue the same medical therapy and modified to a higher dosing of Tapazole given as 10 mg b.i.d. after meals as ordered. We will titrate incrementally as indicated to optimize metabolic control. We will obtain serial chemistries and supplement accordingly as needed. We will follow. Marci Robertson MD
[2018-10-17] MEDS: oxyCODONE 5 mg Immediate Release Tab PO PRN (16:32)
--- NOTE | 2018-10-17 20:17 | CP.PCM.PN ---
Subjective - Date & Time of Evaluation Date of Evaluation: 10/17/18 Time of Evaluation: 20:17 - Subjective Subjective: pt doing wel no fcnvd pain controlled po tolerant Objective - Vital Signs/Intake and Output Vital Signs (last 24 hours): Temp Pulse Resp BP Pulse Ox 98.1 F 102 H 20 109/70 95 10/17/18 16:55 10/17/18 16:55 10/17/18 16:55 10/17/18 16:55 10/17/18 16:55 - Medications Medications: Current Medications Atorvastatin Calcium (Lipitor) 40 mg PO HS [facility] Last Admin: 10/16/18 21:26 Dose: 40 mg Bacitracin (Bacitracin Oint) 1 applic TOP BID [facility] Last Admin: 10/17/18 16:26 Dose: 1 applic Enoxaparin Sodium (Lovenox) 40 mg SC DAILY [facility]; Protocol Last Admin: 10/17/18 10:12 Dose: 40 mg Fluticasone Propionate (Flonase) 1 spr WILEY DAILY [facility] Last Admin: 10/17/18 10:12 Dose: 1 spr Hydrochlorothiazide (Microzide) 12.5 mg PO DAILY [facility] Last Admin: 10/17/18 10:13 Dose: 12.5 mg Piperacillin Sod/Tazobactam (Sod 3.375 gm/ Sodium Chloride) 100 mls @ 100 mls/hr IVPB Q6 [facility]; Protocol Last Admin: 10/17/18 16:33 Dose: 100 mls/hr Loratadine (Claritin) 10 mg PO DAILY [facility] Last Admin: 10/17/18 10:12 Dose: 10 mg Methimazole (Tapazole) 10 mg PO BID [facility] Last Admin: 10/17/18 16:27 Dose: 10 mg Metoprolol Succinate (Toprol Xl) 25 mg PO DAILY [facility] Last Admin: 10/17/18 10:14 Dose: 25 mg Montelukast Sodium (Singulair) 10 mg PO HS [facility] Last Admin: 10/16/18 21:26 Dose: 10 mg Ondansetron HCl (Zofran Inj) 4 mg IVP Q6 PRN PRN Reason: Nausea/Vomiting Last Admin: 10/12/18 21:54 Dose: 4 mg Oxycodone HCl (Oxycodone Immediate Release Tab) 5 mg PO Q6 PRN PRN Reason: Pain, moderate (4-7) Last Admin: 10/17/18 16:32 Dose: 5 mg Pantoprazole Sodium (Protonix Ec Tab) 40 mg PO DAILY [facility] Last Admin: 10/17/18 10:13 Dose: 40 mg Simethicone (Mylicon Chew Tab) 80 mg PO Q8 PRN PRN Reason: Flatulence Last Admin: 10/15/18 17:05 Dose: 80 mg - Labs Labs: 10/17/18 05:30 10/17/18 05:30 - Constitutional Appears: Well, Non-toxic, No Acute Distress - Head Exam Head Exam: ATRAUMATIC, NORMAL INSPECTION, NORMOCEPHALIC - Eye Exam Eye Exam: EOMI, Normal appearance, PERRL Pupil Exam: NORMAL ACCOMODATION, PERRL - ENT Exam ENT Exam: Mucous Membranes Moist, Normal Exam - Neck Exam Neck Exam: Full ROM, Normal Inspection. absent: Lymphadenopathy - Respiratory Exam Respiratory Exam: Clear to Ausculation Bilateral, NORMAL BREATHING PATTERN - Cardiovascular Exam Cardiovascular Exam: REGULAR RHYTHM, RRR, +S1, +S2. absent: Murmur - GI/Abdominal Exam GI & Abdominal Exam: Soft, Normal Bowel Sounds. absent: Tenderness - Extremities Exam Extremities Exam: Full ROM, Normal Capillary Refill, Normal Inspection. absent: Joint Swelling, Pedal Edema - Back Exam Back Exam: NORMAL INSPECTION - Neurological Exam Neurological Exam: Alert, Awake, CN II-XII Intact, Normal Gait, Oriented x3 - Psychiatric Exam Psychiatric exam: Normal Affect, Normal Mood - Skin Skin Exam: Dry, Intact, Normal Color, Warm Assessment and Plan (1) Colon cancer Assessment & Plan: heme/onc path Status: Acute (2) DVT prophylaxis Assessment & Plan: scd and ae hose lovenox Status: Acute (3) Tachycardia Assessment & Plan: improved Status: Acute (4) S/P colon resection Assessment & Plan: pain control ivf po as juliette surgery f/u Status: Acute
[2018-10-18] MEDS: Piperacillin/Tazobact 3.375 GM in Sodium Chloride 0.9% 100 ML IVPB SCH ×4 (03:44→21:52)
--- NOTE | 2018-10-18 07:44 | CP.PCM.PN ---
<Vivienne Eubanks - Last Filed: 10/18/18 07:48> Subjective - Date & Time of Evaluation Date of Evaluation: 10/18/18 Time of Evaluation: 07:05 - Subjective Subjective: General surgery progress note for Dr. Mai-Vivienne Eubanks, PGY-2 Pt seen/examined at bedside. Pt resting comfortably in bed. Reports flatus, BMs, tolerating diet. Abdominal pain at incision site is improving. Denies N & V, F & C, SOB, CP. Is ambulating and OOBTC. Plan to go to rehab on 10/19. Objective - Vital Signs/Intake and Output Vital Signs (last 24 hours): Temp Pulse Resp BP Pulse Ox 99.3 F 103 H 18 98/59 L 96 10/17/18 23:37 10/17/18 23:37 10/17/18 23:37 10/17/18 23:37 10/17/18 23:37 - Medications Medications: Current Medications Atorvastatin Calcium (Lipitor) 40 mg PO HS [facility] Last Admin: 10/17/18 21:33 Dose: 40 mg Bacitracin (Bacitracin Oint) 1 applic TOP BID [facility] Last Admin: 10/17/18 16:26 Dose: 1 applic Enoxaparin Sodium (Lovenox) 40 mg SC DAILY [facility]; Protocol Last Admin: 10/17/18 10:12 Dose: 40 mg Fluticasone Propionate (Flonase) 1 spr WILEY DAILY [facility] Last Admin: 10/17/18 10:12 Dose: 1 spr Hydrochlorothiazide (Microzide) 12.5 mg PO DAILY [facility] Last Admin: 10/17/18 10:13 Dose: 12.5 mg Piperacillin Sod/Tazobactam (Sod 3.375 gm/ Sodium Chloride) 100 mls @ 100 mls/hr IVPB Q6 [facility]; Protocol Last Admin: 10/18/18 03:44 Dose: 100 mls/hr Loratadine (Claritin) 10 mg PO DAILY [facility] Last Admin: 10/17/18 10:12 Dose: 10 mg Methimazole (Tapazole) 10 mg PO BID [facility] Last Admin: 10/17/18 16:27 Dose: 10 mg Metoprolol Succinate (Toprol Xl) 25 mg PO DAILY [facility] Last Admin: 10/17/18 10:14 Dose: 25 mg Montelukast Sodium (Singulair) 10 mg PO HS [facility] Last Admin: 10/17/18 21:33 Dose: 10 mg Ondansetron HCl (Zofran Inj) 4 mg IVP Q6 PRN PRN Reason: Nausea/Vomiting Last Admin: 10/12/18 21:54 Dose: 4 mg Oxycodone HCl (Oxycodone Immediate Release Tab) 5 mg PO Q6 PRN PRN Reason: Pain, moderate (4-7) Last Admin: 10/17/18 16:32 Dose: 5 mg Pantoprazole Sodium (Protonix Ec Tab) 40 mg PO DAILY [facility] Last Admin: 10/17/18 10:13 Dose: 40 mg Simethicone (Mylicon Chew Tab) 80 mg PO Q8 PRN PRN Reason: Flatulence Last Admin: 10/15/18 17:05 Dose: 80 mg - Labs Labs: 10/17/18 05:30 10/17/18 05:30 - Constitutional Appears: Non-toxic, No Acute Distress - Head Exam Head Exam: ATRAUMATIC, NORMAL INSPECTION, NORMOCEPHALIC - Eye Exam Eye Exam: EOMI, Normal appearance - ENT Exam ENT Exam: Mucous Membranes Moist, Normal Exam - Neck Exam Neck Exam: Full ROM, Normal Inspection - Respiratory Exam Respiratory Exam: Clear to Ausculation Bilateral, NORMAL BREATHING PATTERN - Cardiovascular Exam Cardiovascular Exam: REGULAR RHYTHM, +S1, +S2 - GI/Abdominal Exam GI & Abdominal Exam: Soft. absent: Distended, Firm, Guarding, Rigid, Tenderness Additional comments: Midline incision with few hiwot removed, slightly erythematous along incision site. 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 Sergei Eubanks, PGY-2 <Enoch Mai - Last Filed: 10/18/18 10:14> Objective - Vital Signs/Intake and Output Vital Signs (last 24 hours): Temp Pulse Resp BP Pulse Ox 97.9 F 97 H 20 107/67 95 10/18/18 08:28 10/18/18 08:28 10/18/18 08:28 10/18/18 08:28 10/18/18 08:28 - Medications Medications: Current Medications Atorvastatin Calcium (Lipitor) 40 mg PO HS [facility] Last Admin: 10/17/18 21:33 Dose: 40 mg Bacitracin (Bacitracin Oint) 1 applic TOP BID [facility] Last Admin: 10/17/18 16:26 Dose: 1 applic Enoxaparin Sodium (Lovenox) 40 mg SC DAILY [facility]; Protocol Last Admin: 10/17/18 10:12 Dose: 40 mg Fluticasone Propionate (Flonase) 1 spr WILEY DAILY [facility] Last Admin: 10/17/18 10:12 Dose: 1 spr Hydrochlorothiazide (Microzide) 12.5 mg PO DAILY [facility] Last Admin: 10/17/18 10:13 Dose: 12.5 mg Piperacillin Sod/Tazobactam (Sod 3.375 gm/ Sodium Chloride) 100 mls @ 100 mls/hr IVPB Q6 [facility]; Protocol Last Admin: 10/18/18 03:44 Dose: 100 mls/hr Loratadine (Claritin) 10 mg PO DAILY [facility] Last Admin: 10/17/18 10:12 Dose: 10 mg Methimazole (Tapazole) 10 mg PO BID [facility] Last Admin: 10/17/18 16:27 Dose: 10 mg Metoprolol Succinate (Toprol Xl) 25 mg PO DAILY [facility] Last Admin: 10/17/18 10:14 Dose: 25 mg Montelukast Sodium (Singulair) 10 mg PO HS [facility] Last Admin: 10/17/18 21:33 Dose: 10 mg Ondansetron HCl (Zofran Inj) 4 mg IVP Q6 PRN PRN Reason: Nausea/Vomiting Last Admin: 10/12/18 21:54 Dose: 4 mg Oxycodone HCl (Oxycodone Immediate Release Tab) 5 mg PO Q6 PRN PRN Reason: Pain, moderate (4-7) Last Admin: 10/17/18 16:32 Dose: 5 mg Pantoprazole Sodium (Protonix Ec Tab) 40 mg PO DAILY [facility] Last Admin: 10/17/18 10:13 Dose: 40 mg Simethicone (Mylicon Chew Tab) 80 mg PO Q8 PRN PRN Reason: Flatulence Last Admin: 10/15/18 17:05 Dose: 80 mg - Labs Labs: 10/17/18 05:30 10/17/18 05:30 Assessment and Plan - Assessment and Plan (Free Text) Plan: agree with above, cont abx
[2018-10-18] MEDS: Bacitracin OINT 15GM TOP SCH ×2 (10:00→16:20)
[2018-10-18] MEDS: Enoxaparin 40 mg Syringe SC SCH (10:42)
[2018-10-18] MEDS: Metoprolol Succinate 25 mg XL Tab PO SCH (10:43)
[2018-10-18] MEDS: Pantoprazole 40 mg EC Tab PO SCH (10:43)
--- NOTE | 2018-10-18 10:45 | PN ---
DATE: 10/18/2018 SUBJECTIVE: This is a 73-year-old female with recent overt hyperthyroidism, now being followed closely for metabolic management. She remains clinically euthyroid but biochemically has persistent hyperthyroidism as noted thereof. Her repeat thyroxine level showed a higher T4 of 14.1 mcg/dL with a TSH of 0.48 which has actually improved accordingly, with last suppression of the TSH values as noted since admission. LABORATORY DATA: Her chemistry showed a BUN of 16, sodium 137, potassium 3.5, chloride 97, CO2 of 27, glucose 117 and creatinine 0.6. ASSESSMENT AND PLAN: So at this time, we will continue the modified medical therapy with Tapazole given as 10 mg b.i.d. after meals as ordered to allow for full dose equilibration. We will obtain serial thyroid studies and titrate her dose regimen accordingly. We will follow. Marci Robertson MD
[2018-10-18] MEDS ORDERED: oxyCODONE 5 mg Immediate Release Tab PO PRN (16:03)
--- NOTE | 2018-10-18 19:13 | CP.PCM.PN ---
Subjective - Date & Time of Evaluation Date of Evaluation: 10/18/18 Time of Evaluation: 19:12 - Subjective Subjective: pt comfortable in bed no fcnvd no distress consult reciewed bw noted Objective - Vital Signs/Intake and Output Vital Signs (last 24 hours): Temp Pulse Resp BP Pulse Ox 98 F 99 H 20 113/69 93 L 10/18/18 17:18 10/18/18 17:18 10/18/18 17:18 10/18/18 17:18 10/18/18 17:18 - Medications Medications: Current Medications Acetaminophen (Tylenol 325mg Tab) 650 mg PO Q4 PRN PRN Reason: Pain, Mild (1-3) Atorvastatin Calcium (Lipitor) 40 mg PO HS [facility] Last Admin: 10/17/18 21:33 Dose: 40 mg Bacitracin (Bacitracin Oint) 1 applic TOP BID [facility] Last Admin: 10/18/18 16:20 Dose: 1 applic Enoxaparin Sodium (Lovenox) 40 mg SC DAILY [facility]; Protocol Last Admin: 10/18/18 10:42 Dose: 40 mg Fluticasone Propionate (Flonase) 1 spr WILEY DAILY [facility] Last Admin: 10/18/18 10:42 Dose: 1 spr Hydrochlorothiazide (Microzide) 12.5 mg PO DAILY [facility] Last Admin: 10/18/18 10:42 Dose: 12.5 mg Piperacillin Sod/Tazobactam (Sod 3.375 gm/ Sodium Chloride) 100 mls @ 100 mls/hr IVPB Q6 [facility]; Protocol Last Admin: 10/18/18 16:16 Dose: 100 mls/hr Loratadine (Claritin) 10 mg PO DAILY [facility] Last Admin: 10/18/18 10:42 Dose: 10 mg Methimazole (Tapazole) 10 mg PO BID [facility] Last Admin: 10/18/18 16:20 Dose: 10 mg Metoprolol Succinate (Toprol Xl) 25 mg PO DAILY [facility] Last Admin: 10/18/18 10:43 Dose: 25 mg Montelukast Sodium (Singulair) 10 mg PO HS [facility] Last Admin: 10/17/18 21:33 Dose: 10 mg Ondansetron HCl (Zofran Inj) 4 mg IVP Q6 PRN PRN Reason: Nausea/Vomiting Last Admin: 10/12/18 21:54 Dose: 4 mg Oxycodone HCl (Oxycodone Immediate Release Tab) 5 mg PO Q6 PRN PRN Reason: Pain, severe (8-10) Last Admin: 10/18/18 16:12 Dose: 5 mg Pantoprazole Sodium (Protonix Ec Tab) 40 mg PO DAILY [facility] Last Admin: 10/18/18 10:43 Dose: 40 mg Simethicone (Mylicon Chew Tab) 80 mg PO Q8 PRN PRN Reason: Flatulence Last Admin: 10/15/18 17:05 Dose: 80 mg - Labs Labs: 10/17/18 05:30 10/17/18 05:30 - Constitutional Appears: Well, Non-toxic, No Acute Distress - Head Exam Head Exam: ATRAUMATIC, NORMAL INSPECTION, NORMOCEPHALIC - Eye Exam Eye Exam: EOMI, Normal appearance, PERRL Pupil Exam: NORMAL ACCOMODATION, PERRL - ENT Exam ENT Exam: Mucous Membranes Moist, Normal Exam - Neck Exam Neck Exam: Full ROM, Normal Inspection. absent: Lymphadenopathy - Respiratory Exam Respiratory Exam: Clear to Ausculation Bilateral, NORMAL BREATHING PATTERN - Cardiovascular Exam Cardiovascular Exam: REGULAR RHYTHM, RRR, +S1, +S2. absent: Murmur - GI/Abdominal Exam GI & Abdominal Exam: Soft, Normal Bowel Sounds. absent: Tenderness - Extremities Exam Extremities Exam: Full ROM, Normal Capillary Refill, Normal Inspection. absent: Joint Swelling, Pedal Edema - Back Exam Back Exam: NORMAL INSPECTION - Neurological Exam Neurological Exam: Alert, Awake, CN II-XII Intact, Normal Gait, Oriented x3 - Psychiatric Exam Psychiatric exam: Normal Affect, Normal Mood - Skin Skin Exam: Dry, Intact, Normal Color, Warm Assessment and Plan (1) Colon cancer Status: Acute (2) DVT prophylaxis Status: Acute (3) Tachycardia Status: Acute - Assessment and Plan (Free Text) Assessment: (1) Colon cancer Assessment & Plan: heme/onc path Status: Acute (2) DVT prophylaxis Assessment & Plan: scd and ae hose lovenox Status: Acute (3) Tachycardia Assessment & Plan: improved Status: Acute (4) S/P colon resection Assessment & Plan: pain control ivf po as juliette surgery f/u Status: Acute
[2018-10-18] MEDS ORDERED: Potassium Chloride 20 mEq ER Tab PO ONE ×2 (19:40→19:49)
[2018-10-18 23:51] VITALS: PULSE 97
[2018-10-19] MEDS: Piperacillin/Tazobact 3.375 GM in Sodium Chloride 0.9% 100 ML IVPB SCH ×2 (04:37→10:50)
[2018-10-19 06:36] LABS: BASO # 0.1 K/uL (0.0-0.2); BASO % 0.6 % (0.0-2.0); EOS # 0.4 K/uL (0.0-0.7); HEMOGLOBIN 11.2 g/dL (12.0-16.0); LYMPH % 22.5 % (20.0-40.0); MEAN CELL VOLUME 87.3 fl (81.0-99.0); MEAN CORPUSCULAR HEMOGLOBIN 29.1 pg (27.0-31.0); MEAN CORPUSCULAR HGB CONC 33.3 g/dL (33.0-37.0); MONO # 1.3 K/uL (0.0-0.8); MONO % 14.3 % (0.0-10.0); NEUT # 5.2 K/uL (1.8-7.0); NEUT % 57.6 % (50.0-75.0); RBC 3.84 Mil/uL (3.80-5.20); RED CELL DISTRIBUTION WIDTH 13.1 % (11.5-14.5)
[2018-10-19 06:59] LABS: BLOOD UREA NITROGEN 20 mg/dl (7-17); CALCIUM 9.3 mg/dL (8.4-10.2); GFR NON-AFRICAN AMERICAN > 60
--- NOTE | 2018-10-19 07:32 | CP.PCM.DIS ---
<Salvatore Kamara - Last Filed: 10/19/18 11:25> Provider - Provider Date of Admission: 10/06/18 13:08 Attending physician: James Haque MD Primary care physician: Milagro Castro MD Consults: 10/06/18 13:11 Internal Medicine Consult Routine Comment: Consulting Provider: Alexis Ac Consulting Physician: Alexis Ac Reason for Consult: medical management 10/09/18 15:32 Cardiology Consult Routine Comment: consult for tachycardia unexplained Consulting Provider: Herminio Chirinos Consulting Physician: Herminio Chirinos Reason for Consult: unexplained tachycardia 10/10/18 11:41 Endocrinology Consult Routine Comment: Consulting Provider: Marci Robertson Consulting Physician: Marci Robertson Reason for Consult: tachycardia, low TSH 10/15/18 11:53 Physician Consult Routine Comment: Consulting Provider: Rayshawn Leon Consulting Physician: Rayshawn Leon Reason for Consult: Positive nodes on colectomy 10/15/18 13:49 Social Work Referral Routine Comment: Discharge planning (TCU or Subacute) Physician Instructions: Reason For Exam: Discharge planning (TCU or Subacute) 10/15/18 19:10 Hematology Oncology Consult Routine Comment: Consulting Provider: Rayshawn Leon Consulting Physician: Rayshawn Leon Reason for Consult: Colon CA Time Spent in preparation of Discharge (in minutes): 30 Hospital Course - Lab Results Lab Results: Most Recent Lab Values WBC 9.0 K/uL (4.8-10.8) 10/19/18 05:20 RBC 3.84 Mil/uL (3.80-5.20) 10/19/18 05:20 Hgb 11.2 g/dL (12.0-16.0) L 10/19/18 05:20 Hct 33.6 % (34.0-47.0) L 10/19/18 05:20 MCV 87.3 fl (81.0-99.0) 10/19/18 05:20 MCH 29.1 pg (27.0-31.0) 10/19/18 05:20 MCHC 33.3 g/dL (33.0-37.0) 10/19/18 05:20 RDW 13.1 % (11.5-14.5) 10/19/18 05:20 Plt Count 609 K/uL (130-400) H 10/19/18 05:20 MPV 7.0 fl (7.2-11.7) L 10/19/18 05:20 Neut % (Auto) 57.6 % (50.0-75.0) 10/19/18 05:20 Lymph % (Auto) 22.5 % (20.0-40.0) 10/19/18 05:20 [place] % (Auto) 14.3 % (0.0-10.0) H 10/19/18 05:20 Eos % (Auto) 5.0 % (0.0-4.0) H 10/19/18 05:20 Baso % (Auto) 0.6 % (0.0-2.0) 10/19/18 05:20 Neut # (Auto) 5.2 K/uL (1.8-7.0) 10/19/18 05:20 Lymph # (Auto) 2.0 K/uL (1.0-4.3) 10/19/18 05:20 [place] # (Auto) 1.3 K/uL (0.0-0.8) H 10/19/18 05:20 Eos # (Auto) 0.4 K/uL (0.0-0.7) 10/19/18 05:20 Baso # (Auto) 0.1 K/uL (0.0-0.2) 10/19/18 05:20 Sodium 137 mmol/l (132-148) 10/19/18 05:20 Potassium 4.0 MMOL/L (3.6-5.0) 10/19/18 05:20 Chloride 99 mmol/L (98-107) 10/19/18 05:20 Carbon Dioxide 28 mmol/L (22-30) 10/19/18 05:20 Anion Gap 14 (10-20) 10/19/18 05:20 BUN 20 mg/dl (7-17) H 10/19/18 05:20 Creatinine 0.6 mg/dl (0.7-1.2) L 10/19/18 05:20 Est GFR ( Amer) > 60 10/19/18 05:20 Est GFR (Non-Af Amer) > 60 10/19/18 05:20 Random Glucose 105 mg/dL (65-105) 10/19/18 05:20 Calcium 9.3 mg/dL (8.4-10.2) 10/19/18 05:20 Phosphorus 2.8 mg/dl (2.5-4.5) 10/14/18 07:45 Magnesium 1.9 MG/DL (1.6-2.3) 10/15/18 05:35 Total Bilirubin 0.4 mg/dl (0.2-1.3) 10/13/18 05:35 AST 34 U/L (14-36) 10/13/18 05:35 ALT 41 U/L (9-52) 10/13/18 05:35 Alkaline Phosphatase 117 U/L (38-126) 10/13/18 05:35 Total Protein 5.8 G/DL (6.3-8.2) L 10/13/18 05:35 Albumin 3.0 g/dL (3.5-5.0) L 10/13/18 05:35 Globulin 2.8 gm/dL (2.2-3.9) 10/13/18 05:35 Albumin/Globulin Ratio 1.1 (1.0-2.1) 10/13/18 05:35 Free T4 1.45 ng/dL (0.78-2.19) 10/13/18 05:35 Thyroxine (T4) 14.1 ug/dl (5.5-11.0) H 10/17/18 05:30 Total T3 0.882 nmol/L (1.49-2.60) L 10/10/18 04:29 TSH 3rd Generation 0.48 mIU/ML (0.46-4.68) 10/17/18 05:30 Blood Type B POSITIVE 10/06/18 10:25 Blood Type Confirm B POSITIVE 10/06/18 10:35 Antibody Screen Negative 10/06/18 10:25 BBK History Checked No verified bt 10/06/18 10:25 - Hospital Course Hospital Course: 73 y/o female patient s/p 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 Pt resting comfortably in bed. Reports flatus, BMs, tolerating diet. Abdominal pain at incision site is improving. Denies N & V, F & C, SOB, CP. Is ambulating and OOBTC. Patient to continue GI/Hepatic bland diet and PT. Per heme/oncology, Pt has Stage 2B colon cancer with 3/17 LN involvement. Patient will require chemotherapy. Patient to follow up upon discharge. Patient to be discharged on Augmentin 875 mg BID, and Percocet for pain control. As per case management, Patient will have home physical therapy services along with home nurse visits for dressing changes. Plan to start flurouracil & levocorin on 11/05 - Date & Time of H&P Date of H&P: 10/19/18 Time of H&P: 08:48 Discharge Exam - Head Exam Head Exam: ATRAUMATIC, NORMAL INSPECTION, NORMOCEPHALIC - Eye Exam Eye Exam: Normal appearance - ENT Exam ENT Exam: Mucous Membranes Moist - Respiratory Exam Respiratory Exam: Clear to PA & Lateral, NORMAL BREATHING PATTERN. absent: Accessory Muscle Use, Respiratory Distress - GI/Abdominal Exam GI & Abdominal Exam: Normal Bowel Sounds. absent: Distended, Firm, Guarding, Rigid Additional comments: Midline incision with few hiwot removed, slightly erythematous along incision site. Dressing in place- clean/dry/intact - Neurological Exam Neurological exam: Alert, Oriented x3 - Psychiatric Exam Psychiatric exam: Normal Affect, Normal Mood - Skin Skin Exam: Normal Color Discharge Plan - Discharge Medications Prescriptions: Amoxicillin/Clavulanate [Augmentin 875 MG-125 MG] 1 tab PO BID 7 Days #14 tab MDD 2 oxyCODONE/Acetaminophen [Percocet 5/325 mg Tab] 1 ea PO Q4 PRN #10 tab PRN Reason: Pain, Severe (8-10) - Follow Up Plan Condition: GOOD Disposition: HOME/ ROUTINE Patient education suggested?: Yes Instructions: Colectomy, Laparoscopic Surgery Additional Instructions: [facility] nurse [phone] Referrals: Marci Robertson MD [Medical Doctor] - Milagro Castro MD [Primary Care Provider] - Rayshawn Leon MD [Staff Provider] - James Haque MD [Staff Provider] - Clinical Quality Measures - CQM - Stroke Antithrombotic Prescribed: Yes <Derick Ni - Last Filed: 10/19/18 11:55> Provider - Provider Date of Admission: 10/06/18 13:08 Attending physician: James Haque MD Primary care physician: Milagro Castro MD Consults: 10/06/18 13:11 Internal Medicine Consult Routine Comment: Consulting Provider: Alexis Ac Consulting Physician: Alexis Ac Reason for Consult: medical management 10/09/18 15:32 Cardiology Consult Routine Comment: consult for tachycardia unexplained Consulting Provider: Herminio Chirinos Consulting Physician: Herminio Chirinos Reason for Consult: unexplained tachycardia 10/10/18 11:41 Endocrinology Consult Routine Comment: Consulting Provider: Marci Robertson Consulting Physician: Marci Robertson Reason for Consult: tachycardia, low TSH 10/15/18 11:53 Physician Consult Routine Comment: Consulting Provider: Rayshawn Leon Consulting Physician: Rayshawn Leon Reason for Consult: Positive nodes on colectomy 10/15/18 13:49 Social Work Referral Routine Comment: Discharge planning (TCU or Subacute) Physician Instructions: Reason For Exam: Discharge planning (TCU or Subacute) 10/15/18 19:10 Hematology Oncology Consult Routine Comment: Consulting Provider: Rayshawn Leon Consulting Physician: Rayshawn Leon Reason for Consult: Colon CA Hospital Course - Lab Results Lab Results: Most Recent Lab Values WBC 9.0 K/uL (4.8-10.8) 10/19/18 05:20 RBC 3.84 Mil/uL (3.80-5.20) 10/19/18 05:20 Hgb 11.2 g/dL (12.0-16.0) L 10/19/18 05:20 Hct 33.6 % (34.0-47.0) L 10/19/18 05:20 MCV 87.3 fl (81.0-99.0) 10/19/18 05:20 MCH 29.1 pg (27.0-31.0) 10/19/18 05:20 MCHC 33.3 g/dL (33.0-37.0) 10/19/18 05:20 RDW 13.1 % (11.5-14.5) 10/19/18 05:20 Plt Count 609 K/uL (130-400) H 10/19/18 05:20 MPV 7.0 fl (7.2-11.7) L 10/19/18 05:20 Neut % (Auto) 57.6 % (50.0-75.0) 10/19/18 05:20 Lymph % (Auto) 22.5 % (20.0-40.0) 10/19/18 05:20 [place] % (Auto) 14.3 % (0.0-10.0) H 10/19/18 05:20 Eos % (Auto) 5.0 % (0.0-4.0) H 10/19/18 05:20 Baso % (Auto) 0.6 % (0.0-2.0) 10/19/18 05:20 Neut # (Auto) 5.2 K/uL (1.8-7.0) 10/19/18 05:20 Lymph # (Auto) 2.0 K/uL (1.0-4.3) 10/19/18 05:20 [place] # (Auto) 1.3 K/uL (0.0-0.8) H 10/19/18 05:20 Eos # (Auto) 0.4 K/uL (0.0-0.7) 10/19/18 05:20 Baso # (Auto) 0.1 K/uL (0.0-0.2) 10/19/18 05:20 Sodium 137 mmol/l (132-148) 10/19/18 05:20 Potassium 4.0 MMOL/L (3.6-5.0) 10/19/18 05:20 Chloride 99 mmol/L (98-107) 10/19/18 05:20 Carbon Dioxide 28 mmol/L (22-30) 10/19/18 05:20 Anion Gap 14 (10-20) 10/19/18 05:20 BUN 20 mg/dl (7-17) H 10/19/18 05:20 Creatinine 0.6 mg/dl (0.7-1.2) L 10/19/18 05:20 Est GFR ( Amer) > 60 10/19/18 05:20 Est GFR (Non-Af Amer) > 60 10/19/18 05:20 Random Glucose 105 mg/dL (65-105) 10/19/18 05:20 Calcium 9.3 mg/dL (8.4-10.2) 10/19/18 05:20 Phosphorus 2.8 mg/dl (2.5-4.5) 10/14/18 07:45 Magnesium 1.9 MG/DL (1.6-2.3) 10/15/18 05:35 Total Bilirubin 0.4 mg/dl (0.2-1.3) 10/13/18 05:35 AST 34 U/L (14-36) 10/13/18 05:35 ALT 41 U/L (9-52) 10/13/18 05:35 Alkaline Phosphatase 117 U/L (38-126) 10/13/18 05:35 Total Protein 5.8 G/DL (6.3-8.2) L 10/13/18 05:35 Albumin 3.0 g/dL (3.5-5.0) L 10/13/18 05:35 Globulin 2.8 gm/dL (2.2-3.9) 10/13/18 05:35 Albumin/Globulin Ratio 1.1 (1.0-2.1) 10/13/18 05:35 Carcinoembryonic Ag 1.0 ng/mL (0-3.0) 10/19/18 06:00 Free T4 1.45 ng/dL (0.78-2.19) 10/13/18 05:35 Thyroxine (T4) 14.1 ug/dl (5.5-11.0) H 10/17/18 05:30 Total T3 0.882 nmol/L (1.49-2.60) L 10/10/18 04:29 TSH 3rd Generation 0.48 mIU/ML (0.46-4.68) 10/17/18 05:30 Blood Type B POSITIVE 10/06/18 10:25 Blood Type Confirm B POSITIVE 10/06/18 10:35 Antibody Screen Negative 10/06/18 10:25 BBK History Checked No verified bt 10/06/18 10:25
[2018-10-19 07:52] VITALS: BP 100/61; RESP 20; TEMP 97.9; O2SAT 94
[2018-10-19] MEDS: Enoxaparin 40 mg Syringe SC SCH (08:37)
[2018-10-19] MEDS: Metoprolol Succinate 25 mg XL Tab PO SCH (08:39)
[2018-10-19] MEDS: Pantoprazole 40 mg EC Tab PO SCH (08:39)
[2018-10-19] MEDS: Bacitracin OINT 15GM TOP SCH (08:40)
--- NOTE | 2018-10-19 10:00 | CP.PCM.PN ---
Subjective - Date & Time of Evaluation Date of Evaluation: 10/19/18 Time of Evaluation: 09:58 - Subjective Subjective: pt doing well, minimal pain, juliette po, passing stool and flatus. bw noted. case d/c w/ dr gomez per social work pt refused britney by insurance. vs noted. Objective - Vital Signs/Intake and Output Vital Signs (last 24 hours): Temp Pulse Resp BP Pulse Ox 97.9 F 97 H 20 100/61 94 L 10/19/18 07:51 10/19/18 08:39 10/19/18 07:51 10/19/18 08:39 10/19/18 07:51 - Medications Medications: Current Medications Acetaminophen (Tylenol 325mg Tab) 650 mg PO Q4 PRN PRN Reason: Pain, Mild (1-3) Last Admin: 10/19/18 08:47 Dose: 650 mg Atorvastatin Calcium (Lipitor) 40 mg PO HS [facility] Last Admin: 10/18/18 21:13 Dose: 40 mg Bacitracin (Bacitracin Oint) 1 applic TOP BID [facility] Last Admin: 10/19/18 08:40 Dose: 1 applic Enoxaparin Sodium (Lovenox) 40 mg SC DAILY [facility]; Protocol Last Admin: 10/19/18 08:37 Dose: 40 mg Fluticasone Propionate (Flonase) 1 spr WILEY DAILY [facility] Last Admin: 10/19/18 08:40 Dose: 1 spr Hydrochlorothiazide (Microzide) 12.5 mg PO DAILY [facility] Last Admin: 10/19/18 08:39 Dose: 12.5 mg Piperacillin Sod/Tazobactam (Sod 3.375 gm/ Sodium Chloride) 100 mls @ 100 mls/hr IVPB Q6 [facility]; Protocol Last Admin: 10/19/18 04:37 Dose: 100 mls/hr Loratadine (Claritin) 10 mg PO DAILY [facility] Last Admin: 10/19/18 08:39 Dose: 10 mg Methimazole (Tapazole) 10 mg PO BID [facility] Last Admin: 10/19/18 08:38 Dose: 10 mg Metoprolol Succinate (Toprol Xl) 25 mg PO DAILY [facility] Last Admin: 10/19/18 08:39 Dose: 25 mg Montelukast Sodium (Singulair) 10 mg PO HS [facility] Last Admin: 10/18/18 21:14 Dose: 10 mg Ondansetron HCl (Zofran Inj) 4 mg IVP Q6 PRN PRN Reason: Nausea/Vomiting Last Admin: 10/12/18 21:54 Dose: 4 mg Pantoprazole Sodium (Protonix Ec Tab) 40 mg PO DAILY [facility] Last Admin: 10/19/18 08:39 Dose: 40 mg Simethicone (Mylicon Chew Tab) 80 mg PO Q8 PRN PRN Reason: Flatulence Last Admin: 10/15/18 17:05 Dose: 80 mg - Labs Labs: 10/19/18 05:20 10/19/18 05:20 - Constitutional Appears: Well, Non-toxic, No Acute Distress - Head Exam Head Exam: ATRAUMATIC, NORMAL INSPECTION, NORMOCEPHALIC - Eye Exam Eye Exam: EOMI, Normal appearance, PERRL Pupil Exam: NORMAL ACCOMODATION, PERRL - ENT Exam ENT Exam: Mucous Membranes Moist, Normal Exam - Neck Exam Neck Exam: Full ROM, Normal Inspection. absent: Lymphadenopathy - Respiratory Exam Respiratory Exam: Clear to Ausculation Bilateral, NORMAL BREATHING PATTERN - Cardiovascular Exam Cardiovascular Exam: REGULAR RHYTHM, RRR, +S1, +S2. absent: Murmur - GI/Abdominal Exam GI & Abdominal Exam: Soft, Tenderness, Normal Bowel Sounds Additional comments: tender over surgical site. - Extremities Exam Extremities Exam: Full ROM, Normal Capillary Refill, Normal Inspection. absent: Joint Swelling, Pedal Edema - Back Exam Back Exam: NORMAL INSPECTION - Neurological Exam Neurological Exam: Alert, Awake, CN II-XII Intact, Normal Gait, Oriented x3 - Psychiatric Exam Psychiatric exam: Normal Affect, Normal Mood - Skin Skin Exam: Dry, Intact, Normal Color, Warm Assessment and Plan (1) Colon cancer Assessment & Plan: dc home for f/u w/ outpt primary and heme/onc Status: Acute (2) DVT prophylaxis Assessment & Plan: scd and ae hose ambulation lovenox Status: Acute (3) S/P colon resection Assessment & Plan: pain control po as juliette activity as juliette surgery Status: Acute (4) Tachycardia Assessment & Plan: resolved Status: Acute - Assessment and Plan (Free Text) Assessment: pt comfortbale, advised to cont po hydration, bw 1 wk. outpt f/u heme/onc medicine consult will sign off in anticipation of dc by surgical primary team. reconsult prn
--- NOTE | 2018-10-19 11:58 | CP.PCM.PN ---
Subjective - Date & Time of Evaluation Date of Evaluation: 10/19/18 Time of Evaluation: 11:55 - Subjective Subjective: seen at bedside, no overnight events. Pt is afebrile, hemodynamically stable. Pt is tolerating diet, no nausea or vomiting. +BM, Flatus gen: awake, alert, NAD HEENT: NC/AT, EOMI, no acute respiratory distress abd: soft, ND, midline insicio healing well, hiwot removed at bedside, witrh mostly seropurulent drainage, mininmal incision tenderness -pain control -cont diet will dc on PO abx local wound care f/u in office within two weeks Objective - Vital Signs/Intake and Output Vital Signs (last 24 hours): Temp Pulse Resp BP Pulse Ox 97.9 F 97 H 20 100/61 94 L 10/19/18 07:51 10/19/18 08:39 10/19/18 07:51 10/19/18 08:39 10/19/18 07:51 - Medications Medications: Current Medications Acetaminophen (Tylenol 325mg Tab) 650 mg PO Q4 PRN PRN Reason: Pain, Mild (1-3) Last Admin: 10/19/18 08:47 Dose: 650 mg Atorvastatin Calcium (Lipitor) 40 mg PO HS [facility] Last Admin: 10/18/18 21:13 Dose: 40 mg Bacitracin (Bacitracin Oint) 1 applic TOP BID [facility] Last Admin: 10/19/18 08:40 Dose: 1 applic Enoxaparin Sodium (Lovenox) 40 mg SC DAILY [facility]; Protocol Last Admin: 10/19/18 08:37 Dose: 40 mg Fluticasone Propionate (Flonase) 1 spr WILEY DAILY [facility] Last Admin: 10/19/18 08:40 Dose: 1 spr Hydrochlorothiazide (Microzide) 12.5 mg PO DAILY [facility] Last Admin: 10/19/18 08:39 Dose: 12.5 mg Piperacillin Sod/Tazobactam (Sod 3.375 gm/ Sodium Chloride) 100 mls @ 100 mls/hr IVPB Q6 [facility]; Protocol Last Admin: 10/19/18 10:50 Dose: 100 mls/hr Loratadine (Claritin) 10 mg PO DAILY [facility] Last Admin: 10/19/18 08:39 Dose: 10 mg Methimazole (Tapazole) 10 mg PO BID [facility] Last Admin: 10/19/18 08:38 Dose: 10 mg Metoprolol Succinate (Toprol Xl) 25 mg PO DAILY [facility] Last Admin: 10/19/18 08:39 Dose: 25 mg Montelukast Sodium (Singulair) 10 mg PO HS [facility] Last Admin: 10/18/18 21:14 Dose: 10 mg Ondansetron HCl (Zofran Inj) 4 mg IVP Q6 PRN PRN Reason: Nausea/Vomiting Last Admin: 10/12/18 21:54 Dose: 4 mg Pantoprazole Sodium (Protonix Ec Tab) 40 mg PO DAILY [facility] Last Admin: 10/19/18 08:39 Dose: 40 mg Simethicone (Mylicon Chew Tab) 80 mg PO Q8 PRN PRN Reason: Flatulence Last Admin: 10/15/18 17:05 Dose: 80 mg - Labs Labs: 10/19/18 05:20 10/19/18 05:20
--- NOTE | 2018-10-19 19:07 | PN ---
DATE: 10/19/2018 ENDOCRINOLOGY FOLLOWUP NOTE LOCATION: In room 651. SUBJECTIVE: This is a 73-year-old female with overt hyperthyroidism, tolerating the initiation of medical therapy as given thereof. She remains clinically euthyroid, but biochemically has overt hyperthyroidism as confirmed by biochemical indices. She is tolerating her medical therapy with Tapazole given three times a day and she has improved clinically and metabolically as noted thereof. LABORATORY DATA: Her thyroxine level was 14.1 mcg/dL with a TSH of 0.48 consistent with overt hyperthyroidism noted historically, clinically and biochemically, most likely related to underlying autoimmune thyroiditis thereof. PLAN OF MANAGEMENT: We will continue the modified Tapazole given as 20 mg b.i.d. after meals, to allow for dose equilibration at this time. We will follow up with you. Marci Robertson MD
== END 2018-10-19 14:47 | disposition home or self-care (01) | DRG 330 ==
LOC: H.OPSURG 07:53 → H.MEDSURG1 13:08
PROVIDERS: ADMIT Surgery; ATTEND Surgery
PROC: 0DNW4ZZ Release Peritoneum, Percutaneous Endoscopic Approach (ICD-10-PCS; 2018-10-06)
PROC: 3E0T3BZ Introduction of Anesthetic Agent into Peripheral Nerves and Plexi, Percutaneous Approach (ICD-10-PCS; 2018-10-06)
PROC: 0DTF0ZZ Resection of Right Large Intestine, Open Approach (ICD-10-PCS; principal; 2018-10-06 09:45)
PROC: 0DBU0ZZ Excision of Omentum, Open Approach (ICD-10-PCS; 2018-10-06 09:45)
DX: C18.0 Malignant neoplasm of cecum (principal); C77.2 Secondary and unspecified malignant neoplasm of intra-abdominal lymph nodes; E05.20 Thyrotoxicosis with toxic multinodular goiter without thyrotoxic crisis or storm; E78.2 Mixed hyperlipidemia; I10 Essential (primary) hypertension; K21.9 Gastro-esophageal reflux disease without esophagitis; E06.3 Autoimmune thyroiditis; K66.0 Peritoneal adhesions (postprocedural) (postinfection); K29.70 Gastritis, unspecified, without bleeding; M81.6 Localized osteoporosis [Lequesne]; R11.14 Bilious vomiting; Z53.31 Laparoscopic surgical procedure converted to open procedure

== ENCOUNTER 2018-11-09 09:05 | Day surgery (SDC) | payer MEDICARE, OTHER ==
[2018-11-09 09:36] VITALS: BMI 23.4
[2018-11-09] MEDS ORDERED: Lactated Ringer's 1,000 ML IV ONE (10:00)
--- NOTE | 2018-11-09 11:20 | CP.SDSHP ---
Same Day Surgery H & P - History Proposed Procedure: Port insertion Pre-Op Diagnosis: Colon CA - Previous Medical/Surgical History Cardiac: Hypertension Endocrine/Metabolic: Thyroid Disease, Diabetes Pain: 0. No Pain Comments: Colon CA Previous Surgical History: s/p Right hemicolectomy - Allergies Allergies: Allergies pollen extracts Allergy (Mild, Verified 11/09/18 09:21) ITCHING environmental Allergy (Uncoded 11/09/18 09:21) CONGESTION - Physical Exam General Appearance: NAD Vital Signs: Vital Signs 11/09/18 09:37 Temperature 98.3 F Pulse Rate 94 H Respiratory 16 Rate Blood Pressure 95/57 L O2 Sat by Pulse 99 Oximetry Mental Status: Alert & Oriented x3 Neuro: WNL Heart: WNL Lungs: WNL GI: WNL - {Optional Preform as Required} Abdomen: Other (vertical midline incision, healing well) - Impression Impression: 73F with PMH of Colon CA presents for port insertion Pt. Evaluated Today:Candidate for Anesthesia & Procedure: Yes - Date & Time Date: 11/09/18 Time: 11:20 Short Stay Discharge - Short Stay Discharge Admitting Diagnosis/Reason for Visit: PAIN Disposition: HOME/ ROUTINE Medications: oxyCODONE/Acetaminophen [Percocet 5/325 mg Tab] 1 tab PO Q4 PRN #20 tab PRN Reason: Pain, Moderate (4-7) Referrals: Milagro Castro MD [Primary Care Provider] - James Haque MD [Staff Provider] - Rayshawn Leon MD [Staff Provider] - Additional Instructions (Diet, Activity): Take percocet as prescribed for pain as needed Resume home medications as previously prescribed Follow up with PMD and Oncologist Follow up with Dr. Haque within 1-[address] Haque's office for any issues [place] percocet segn lo prescrito para el dolor segn sea necesario Reanudar los medicamentos caseros segn lo prescrito previamente. Seguimiento con PMD y onclogo Seguimiento con el Dr. Haque dentro de 1-2 semanas Llame a la oficina del Dr. Haque para cualquier problema. Progress Note/Discharge Note with Instructions: 73 F with PMH of COlon CA who is s/p left subclavian vein port insertion Patient is stable to be discharge to home after SDS criteria are met
[2018-11-09] MEDS ORDERED: Lidocaine 1% Inj (20ml) ONE (11:32)
[2018-11-09] MEDS ORDERED: Propofol 10 mg/ml Inj (20 ML) ONE (11:39)
[2018-11-09] MEDS ORDERED: Midazolam 2 MG/2 ML VIAL ONE (11:39)
[2018-11-09] MEDS ORDERED: Lidocaine 1% 5ml Abboject ONE (11:40)
[2018-11-09] MEDS ORDERED: Oxycodone/Acetaminophen 5/325 mg Tab PO PRN (12:59)
[2018-11-09] MEDS ORDERED: Lactated Ringer's 1,000 ML IV SCH (13:00)
--- NOTE | 2018-11-09 13:02 | PCM.SURG1 ---
Surgeon's Initial Post Op Note - Surgeon's Notes Surgeon: Dr. Haque Pecan Mallow Dipper: Manjeet PGY2 Type of Anesthesia: IV Sedation, Local Anesthesia Administered By: Dr. Ramos Pre-Operative Diagnosis: Colon CA Operative Findings: left subclavian port insertion with subcuntaneous port in proper position with tip of the catheter at the level just above right atrium, port aspirated and flushed with ease Post-Operative Diagnosis: Colon CA Operation Performed: Left subclavian vein port insertion Specimen/Specimens Removed: N/A Estimated Blood Loss: EBL {In ML}: 5 Blood Products Given: N/A Drains Used: No Drains Post-Op Condition: Good Date of Surgery/Procedure: 11/09/18 Time of Surgery/Procedure: 13:02
[2018-11-09 13:07] VITALS: RESP 18
[2018-11-09 15:13] VITALS: BP 104/58; PULSE 92; TEMP 98.2; O2SAT 97
--- NOTE | 2018-11-09 16:38 | RAD ---
Date of service: 11/09/2018 PROCEDURE: CHEST RADIOGRAPH, 1 VIEW HISTORY: s/p port COMPARISON: 04/04/2014 FINDINGS: LUNGS: Atelectatic changes primarily at the left lung base. PLEURA: No pneumothorax or pleural fluid seen. CARDIOVASCULAR: No aortic atherosclerotic calcification present. No radiographic findings to suggest acute or significant cardiovascular disease. Venous access catheter in satisfactory position. OSSEOUS STRUCTURES: No significant abnormalities. VISUALIZED UPPER ABDOMEN: Normal. OTHER FINDINGS: None. IMPRESSION: No adverse findings/no pneumothorax following left subclavian line placement. Left lower lobe infiltrate/atelectasis.
--- NOTE | 2018-11-10 00:11 | OP ---
PROCEDURE DATE: 11/09/2018 PREOPERATIVE DIAGNOSIS: Right colon cancer. POSTOPERATIVE DIAGNOSIS: Right colon cancer. PROCEDURE: Insertion of Port-A-Cath under fluoroscopic guidance. SURGEON: James Haque MD. DIALYSIS EQUIPMENT TECHNICIAN: Mehul Burroughs DO. ANESTHESIA: Local with sedation. INTRAVENOUS FLUIDS: Crystalloids. ESTIMATED BLOOD LOSS: 5 mL. INTRAOPERATIVE FINDINGS: Satisfactory placement of the tubing of the port and good flush in the port after placement. SPECIMENS: None. BRIEF HISTORY: Ms. Galvin is a pleasant 73-year-old female who is known to me from prior right hemicolectomy that she underwent almost two months ago for right colon cancer. Subsequent to that, pathology showed that she had three positive lymph nodes out of 17, and the patient opted for chemotherapy. So, she needed an insertion of the Port-A-Cath for chemotherapy treatment. All the risks and benefits of the procedure were explained to the patient and with the patient having a full understanding of all the risks and benefits involved, informed consent was obtained and the patient was taken to the operating room for above-stated procedure. DESCRIPTION OF PROCEDURE: The patient was brought in to the operating room and placed supine on the operating room table. Bilateral Flowtron boots were applied to the patient's lower extremities. After successful IV sedation, the patient's neck and upper chest were prepped with ChloraPrep stick and draped in a standard surgical fashion. Prior to the beginning of the procedure, the patient received Ancef prophylactic antibiotic. Time-out was called in the room, and everyone in the room were in agreement. Using the needle attached to the syringe, left subclavian vein was cannulated and subsequent to that, a guidewire was inserted into the patient. At this point in time, fluoroscopy C-arm was asked to come in to operative field and a Fluorospot was taken. It appeared that the guidewire was gone into the superior vena cava. At this point in time, a guidewire was clamped to the drape and using 1% local anesthetic, the area for the port in the left side of the patient's chest was infiltrated with 10 mL of lidocaine anesthetic. Subsequent to that, using a #15-blade scalpel knife, approximately 2.5 cm incision was made in transverse fashion approximately two fingerbreadths below the clavicle and subsequent to that, dissection was carried down with electrocautery until the clavicular fascia was encountered. At this point in time using a blunt dissection with the finger, the pocket for the port was created and subsequent to that, hemostasis was achieved with electrocautery. At this point in time, the port was assembled with the tubing attached to the port and a locking device locking the tubing and the port was flushed with heparinized saline and end of the tubing was attached to the . A small tata was made around the area of the guidewire with a #15-blade scalpel knife. Subsequent to that, the tubing of the port was tunneled in the subcutaneous tissue towards the area of the guidewire. At this point in time, the right distance was measured for the length of the tubing with the help of fluoroscopy and at this point in time, the tubing was cut. Once this was accomplished, the dilator introducer was introduced over the guidewire into the patient and subsequent to that, the tubing of the port was introduced into the introducer sheath and the sheath was broken and the rest of the tubing was introduced into the patient. At this point in time, the two ends of the introducer sheath were passed off to the main stent and at this point in time, fluoroscopy C-arm was asked to come in to the operative field one more time and another Fluorospot was taken. There appeared to be good placement of the port with the tubing ending at superior vena cava and there appeared to be no kinking in tubing. Syringe and Sherwood needle was attached to the port and there appeared to be good backflow of the blood into the syringe and the port was flushed. At this point in time, port was placed into the prior made pocket and deep dermal layer was closed with running 3-0 Vicryl suture and subsequent to that, skin was closed with 4-0 Monocryl suture in a running subcuticular fashion. At the end of the procedure, the patient's upper chest was washed and dried and Dermabond was applied to the site of the incisions. The patient was successfully transferred back to the stretcher and taken to the recovery room in a stable condition. At the end of the procedure, all instrument counts, needles, and sponges were correct. James Haque MD
--- NOTE | 2018-11-11 13:52 | RAD ---
Date of service: 11/09/2018 PROCEDURE: Intraoperative Fluoroscopy. HISTORY: LIFEPORT INSERTION FINDINGS: Fluoroscopic assistance was provided Total fluoroscopic time (continuous mode) utilized during the procedure 10.3 seconds. Total exam DLP: 1.25 (mGy). Please refer to the operative report from SHERI Zambrano.
== END 2018-11-09 16:00 | disposition home or self-care (01) ==
LOC: H.OPSURG 09:05
PROVIDERS: ATTEND Surgery
DX: C18.2 Malignant neoplasm of ascending colon (principal); E78.5 Hyperlipidemia, unspecified; I10 Essential (primary) hypertension; K21.9 Gastro-esophageal reflux disease without esophagitis; M19.90 Unspecified osteoarthritis, unspecified site; E11.9 Type 2 diabetes mellitus without complications
CPT/HCPCS: 36561; 71045; C1751; J0690; J1644; J2250; J2704; J2765; J3010; J7040; J7120